=== PATIENT | male | born 1970 | race Caucasian/White ===

== ENCOUNTER → 2017-07-07 | Day surgery (SDC) | payer OTHER ==
[~2017-07-07] VITALS: Ht 180.3 cm; Wt 151.8 kg
[~2017-07-07] MED LIST: ACT/30 PO; ATEN50TA8 PO; CITA40TA4 PO; DULO60CA44 PO; FURO80TA63 PO; GABA800T PO; HYZ/50125 PO; LANS30CA12 PO; LIDOCAINE HCL 2% 2 ML VIAL (20MG/ML) ONE; MELATAB2 PO; MELO7.5T5 PO; MIDAZOLAM HCL 1 MG/ML 2ML VIAL ONE; NAPR-1169 PO; NYSTCRE11 TOP; OXGN; PREG200C PO; PROPOFOL IV EMULSION 10 MG/ML 20 ML VIAL IV ONE; RXC5 PO; SODIUM CHLORIDE 0.9% 500ML 500 ML IV ONE; TIZA4CAP PO; TRAM-10 PO; ZOLP10TA PO; ZOLP1TAB PO; potassium OTC PO
[2017-07-07 11:58] VITALS: Ht 180.3 cm; Wt 151.8 kg
--- NOTE | 2017-07-07 12:35 | Endo History and Physical ---
History & Physical Date of Service: Jul 07, 2017. Chief Complaint: RECTAL BLEEDING, FAMILY HISTORY OF COLON CA Referring Physician: DR GARCIA History of Present Illness Rectal bleeding, famiily history Past Medical History Diabetes, Hypertension Past Surgical History Hx Cardiac Surgery: No Hx Internal Defibrillator: No Hx Pacemaker: No Hx Abdominal Surgery: Yes (CHOLY) Hx of Implantable Prosthesis: No Hx Post-Op Nausea and Vomiting: No Hx Cancer Surgery: No Hx Thoracic Surgery: No Hx Orthopedic: Yes (RIGHT KNEE) Hx Urinary Tract Surgery: No Family History None Social History Smoking Status: Current Every Day Smoker Hx Substance Use: No Hx Alcohol Use: Yes (SOCIALY) Allergies Coded Allergies: Erythromycin (Verified Allergy, Severe, anaphylaxis, 07/07/17) Current Medications Reported Home Medications Medications Dose Route/Sig Max Daily Dose Days Date Category Actos (Pioglitazone Hcl) 30 Mg Tab 30 Mg PO DAILY 06/28/17 Reported Prevacid (Lansoprazole) 30 Mg Capcr 30 Mg PO DAILY 05/17/17 Reported Mobic (Meloxicam) 7.5 Mg Tab 15 Mg PO DAILY 05/17/17 Reported Neurontin (Gabapentin) 800 Mg Tab 800 Mg PO TID 05/17/17 Reported Zanaflex (Tizanidine HCl) 4 Mg Cap 8 Mg PO HS 11/11/16 Reported [potassium OTC] 1 Tab PO PRN 07/02/16 Reported Naprosyn (Naproxen) 500 Mg Tab 500 Mg PO BID 06/17/16 Reported Citalopram Hydrobromide (Citalopram) 40 Mg Tab 1 Tab PO QPM 90 06/17/16 Reported Tenormin (Atenolol) 50 Mg Tab 100 Mg PO QPM 06/17/16 Reported Ambien Er (Zolpidem Tartrate) 12.5 Mg Tab 12.5 Mg PO HS 06/17/16 Reported Hyzaar 12.5MG/50MG (HCTZ/Losartan Potassium) 1 Ea Tab 1 Tab PO QPM 11/22/15 Reported Lasix (Furosemide) 80 Mg Tab 80 Mg PO QPM 11/22/15 Reported Cymbalta (Duloxetine Hcl) 60 Mg Cap 90 Mg PO QAM 11/22/15 Reported Ultram (Tramadol HCl) 50 Mg Tab 100 Mg PO BID 01/08/15 Reported Vital Signs Weight (Kilograms): 151.81 Height (Feet): 5 Height (Inches): 11 Date Time Temp Pulse Resp B/P (MAP) Pulse Ox O2 Delivery O2 Flow Rate FiO2 07/07/17 12:13 36.9 67 20 137/71 (93) 96 Room Air Physical Exam General Appearance: WD/WN, no apparent distress, + obese Respiratory/Chest: Auscultation: breath sounds normal, no wheezing Cardiovascular: Heart Auscultation: RRR, no murmurs Abdomen: Inspection & Palpation: soft, no tenderness, guarding & rebound Assessment and Plan Colonoscopy today.
--- NOTE | 2017-07-07 13:25 | Anesthesiology Progress Note ---
Anesthesia Post Op Note Date & Time Jul 07, 2017 at 13:25 Vital Signs Pain Intensity: 0 Vital Signs Past 12 Hours Date Time Temp Pulse Resp B/P (MAP) Pulse Ox O2 Delivery O2 Flow Rate FiO2 07/07/17 12:13 36.9 67 20 137/71 (93) 96 Room Air Notes Mental Status: alert / awake / arousable, participated in evaluation Pt Amnestic to Procedure: Yes Nausea / Vomiting: adequately controlled Pain: adequately controlled Airway Patency, RR, SpO2: stable & adequate BP & HR: stable & adequate Hydration State: stable & adequate Anesthetic Complications: no major complications apparent
--- NOTE | 2017-07-07 13:27 | Discharge Instructions ---
Endoscopy Patient Instructions Date / Procedure(s) Performed Jul 07, 2017. Colonoscopy Allergy Information Coded Allergies: Erythromycin (Verified Allergy, Severe, anaphylaxis, 07/07/17) Discharge Date / Findings Jul 07, 2017. Colon polyp removed. Medication Instructions Stopped Medication(s): MOBIC AND NAPROXEN STOPPED 07/07/17 Restart Stopped Medication(s): Resume all medications today. Use Wet Ones or other wet wipes instead of toilet paper. Take Citrucel daily. Provider Instructions Activity Restrictions - No exercising or heavy lifting for 24 hours. - Do not drink alcohol the day of the procedure. - Do not drive a car or operate machinery until the day after the procedure. - Do not make any important decisions or sign important papers in 24 hours after the procedure. Following Day: - Return to full activity which may include returning to work/school. Diet Start your diet with liquids and light foods (jello, soup, juice, toast). Then eat your usual diet if not nauseated. Treatment For Common After Affects For mild abdominal pain, bloating, or excessive gas: - Rest - Eat lightly - Lie on right side Follow-Up Information Follow-up with DR GARCIA as scheduled Anesthesia Information What You Should Know You have had a procedure that required some medicine to reduce anxiety and discomfort. This treatment is called moderate sedation. After receiving the treatment, you may be sleepy, but you will be able to breathe on your own. The effects of the treatment may last for several hours. Follow these instructions along with Activity/Diet recommendations noted above: * Do NOT do anything where dizziness or clumsiness would be dangerous. * Rest quietly at home today, then you can be up and about tomorrow. * Have a responsible person stay with you the rest of today. * You may have had an I.V. today. If so, you may take the dressing off later today. Recommendations Call your doctor if: * Trouble breathing * Continuous vomiting for more than 24 hours * Temperature above 101 degrees * Severe abdominal pain or bloating * Pain not relieved by pain medicine ordered * There is increased drainage or redness from any incision * A large amount of rectal bleeding greater than 2-3 tablespoons. (If you had a polyp/s removed or have hemorrhoids, a small amount of blood - from the rectum is to be expected.) * You have any unanswered questions or concerns. IN THE EVENT OF A SERIOUS EMERGENCY, GO TO THE NEAREST EMERGENCY ROOM Your discharge instructions were prepared by provider Bogdan Arroyo. Patient Instructions Signature Page Lenard Hodge Patient (or Guardian) Signature/Date: I have read and understand the instructions given to me by my caregivers. Caregiver/RN/Doctor Signature/Date: The above-named patient and/or guardian has received patient instructions on this date. + Original Patient Signature Page (only) stays with chart. Please make copy for patient.
[2017-07-07 13:47] VITALS: BP 142/90; PULSE 72; O2SAT 98
--- NOTE | 2017-07-08 00:15 | GI REPORT ---
Procedure Date: 07/07/2017 12:47 PM Procedure: Colonoscopy Indications: Rectal bleeding, Family history of colon cancer in multiple second-degree relatives Medicines: Propofol per Anesthesia Complications: No immediate complications. Estimated blood loss: None. Estimated Blood Loss: Estimated blood loss: none. Procedure: Pre-Anesthesia Assessment: - Prior to the procedure, a History and Physical was performed, and patient medications, allergies and sensitivities were reviewed. The patient's tolerance of previous anesthesia was reviewed. - ASA Grade Assessment: II - A patient with mild systemic disease. After I obtained informed consent, the scope was passed under direct vision. Throughout the procedure, the patient's blood pressure, pulse, and oxygen saturations were monitored continuously. The scope was introduced through the anus and advanced to the terminal ileum, with identification of the appendiceal orifice and IC valve. The colonoscopy was performed with ease. The patient tolerated the procedure well. The quality of the bowel preparation was excellent. The bowel preparation used was split dose MIralax. Findings: A 5 mm polyp was found in the sigmoid colon. The polyp was sessile. The polyp was removed with a cold snare. Resection and retrieval were complete. Verification of patient identification for the specimen was done by the physician and nurse using the patient's name, date and medical record number. Impression: - One 5 mm polyp in the sigmoid colon, removed with a cold snare. Resected and retrieved. - The colon was otherwise normal to the terminal ileum with retroflexed views of the colon and terminal ileum. Recommendation: - Repeat colonoscopy in 5 years for surveillance based on pathology results. - Discharge patient to home (with escort). Bogdan Arroyo M.D. Bogdan Arroyo MD 07/07/2017 1:25:29 PM This report has been signed electronically. Note Initiated On: 07/07/2017 12:47 PM I attest to the content of the Intraoperative Record and orders documented therein, exceptions below
== END | disposition home or self-care (01) ==
LOC: C.GI 11:45
PROVIDERS: ATTEND Internal Medicine Gastroenterology
DX: K62.5 Hemorrhage of anus and rectum (principal); D12.5 Benign neoplasm of sigmoid colon; Z80.0 Family history of malignant neoplasm of digestive organs; E11.9 Type 2 diabetes mellitus without complications; I10 Essential (primary) hypertension; F17.200 Nicotine dependence, unspecified, uncomplicated

== ENCOUNTER 2017-08-11 05:32 | Inpatient (IN) | payer OTHER ==
[2017-07-27 14:16] VITALS: BMI 48.0
--- NOTE | 2017-07-27 14:52 | PAT Medication Instructions ---
"Service Date Jul 27, 2017. Current Home Medication List Atenolol (Tenormin), 100 MG PO QAM Citalopram (Citalopram Hydrobromide), 1 TAB PO QPM Duloxetine Hcl (Cymbalta), 90 MG PO QAM Furosemide (Lasix), 80 MG PO QPM Hctz/Losartan (Hyzaar 12.5MG/50MG), 1 TAB PO QPM Home O2 Therapy (Oxygen), 1 LITER NA HS Lansoprazole (Prevacid), 30 MG PO QAM Melatonin (Melatonin Maximum Strengt), 10 MG PO HS Meloxicam (Mobic), 15 MG PO QPM Naproxen (Naprosyn), 500 MG PO BID Nystatin/Triamcinolone (Mycogen || ), 1 DOSE TOP HS Pioglitazone Hcl (Actos), 30 MG PO DAILY Pregabalin (Lyrica), 225 MG PO BID Tizanidine (Zanaflex), 4 MG PO AM/HS Tramadol (Ultram), 100 MG PO BID Zolpidem Tartrate (Ambien), 10 MG PO HS Medication Instructions For Your Scheduled Surgery - Check with surgeon for instructions: Meloxicam (Mobic), 15 MG PO QPM Naproxen (Naprosyn), 500 MG PO BID - Hold the following medications 24 hours prior to surgery: Nystatin/Triamcinolone (Mycogen || ), 1 DOSE TOP HS - Hold the following medications the morning of surgery: Tizanidine (Zanaflex), 4 MG PO AM/HS Pioglitazone Hcl (Actos), 30 MG PO DAILY - Take the following medications the morning of surgery with a sip of water: Tramadol (Ultram), 100 MG PO BID (okay to take up to 4 hours prior to surgery if needed) Pregabalin (Lyrica), 225 MG PO BID Lansoprazole (Prevacid), 30 MG PO QAM Duloxetine Hcl (Cymbalta), 90 MG PO QAM Atenolol (Tenormin), 100 MG PO QAM - Hold the following medications as scheduled the night before surgery: Hctz/Losartan (Hyzaar 12.5MG/50MG), 1 TAB PO QPM - Take the following medications as scheduled the night before surgery: Tramadol (Ultram), 100 MG PO BID Zolpidem Tartrate (Ambien), 10 MG PO HS Tizanidine (Zanaflex), 4 MG PO AM/HS Pregabalin (Lyrica), 225 MG PO BID Melatonin (Melatonin Maximum Strengt), 10 MG PO HS Home O2 Therapy (Oxygen), 1 LITER NA HS Furosemide (Lasix), 80 MG PO QPM Citalopram (Citalopram Hydrobromide), 1 TAB PO QPM If you have any questions please call us at [phone] or [phone] or [phone]"
--- NOTE | 2017-07-27 15:15 | DIAGNOSTIC IMAGING REPORT ---
CHEST 2 VIEWS ROUTINE CLINICAL HISTORY: pat preoperative evaluation COMPARISON STUDY: 01/11/2013 FINDINGS: The bones soft tissues and hemidiaphragms are normal. The cardiomediastinal silhouette is normal. The lungs are clear. The pulmonary vasculature is normal. IMPRESSION: Negative chest. The above report was generated using voice recognition software. It may contain grammatical, syntax or spelling errors. Electronically signed by: Kristian Velazquez M.D. 07/27/2017 3:13 PM Dictated Date/Time: 07/27/2017 3:13 PM
[2017-07-27 15:42] LABS: URINE APPEARANCE CLOUDY (CLEAR); URINE BILIRUBIN NEG (NEG); URINE COLOR DK YELLOW; URINE EPITHELIAL CELL AUTO >30 /lpf (0-5); URINE NITRITE NEG (NEG); URINE SPECIFIC GRAVITY 1.025 (1.000-1.030); UROBILINOGEN NEG (NEG); ZZUR CULT IF INDIC CLEAN CATCH YES
[2017-07-27 15:43] LABS: MANUAL MICROSCOPIC REQUIRED? NO; REVIEW REQ? YES
[2017-08-11] VITALS (9 sets, daily range): BP systolic 130–146; BP diastolic 67–82; PULSE 62–77; TEMP 36.7–36.9; O2SAT 93–99; Ht 180.3 cm; Wt 157.0 kg
[~2017-08-11] VITALS: Ht 180.3 cm; Wt 157.0 kg
[~2017-08-11 05:32] MED LIST changes: -GABA800T PO; -LIDOCAINE HCL 2% 2 ML VIAL (20MG/ML) ONE; -MIDAZOLAM HCL 1 MG/ML 2ML VIAL ONE; -PROPOFOL IV EMULSION 10 MG/ML 20 ML VIAL IV ONE; -RXC5 PO; -SODIUM CHLORIDE 0.9% 500ML 500 ML IV ONE; -ZOLP1TAB PO; -potassium OTC PO
[2017-08-11] MEDS ORDERED: LACTATED RINGER'S 1000ML 1,000 ML IV SCH (06:00)
[2017-08-11] MEDS ORDERED: CEFAZOLIN 3000 MG/65 ML D5W IV SCH (06:00)
[2017-08-11] MEDS ORDERED: FENTANYL CITRATE INJ 50 MCG/1 ML 2 ML VIAL ONE ×4 (06:52→09:08)
[2017-08-11] MEDS ORDERED: MIDAZOLAM HCL 1 MG/ML 2ML VIAL ONE (06:52)
[2017-08-11] MEDS ORDERED: BUPIVACAINE/EPINEPHRINE 0.5% MPF 1:200,000 30 ML VIAL ONE (07:11)
[2017-08-11] MEDS ORDERED: BACITRACIN 50000 UNIT VIAL ONE (07:11)
--- NOTE | 2017-08-11 07:24 | History & Physical Bridge Note ---
H&P Re-Evaluation Bridge Note: I have examined the patient, reviewed the History & Physical and in the interval since the performance of the History & Physical I have noted the following changes of clinical significance: No changes noted
--- NOTE | 2017-08-11 07:25 | History and Physical ---
"History & Physical Date Aug 11, 2017. Chief Complaint Chronic back and leg pain History of Present Illness The patient is a 46 year old male with complaints of chronic back and leg pain Past Medical/Surgical History Medical Problems: (1) Lynn's Esophagus (2) Diaphragmatic Hernia (3) Esophageal Reflux (4) Esophagitis Nos (5) Hypertension Nos (6) Tobacco Use Disorder Surgical Problems: (1) History of cholecystectomy (2) Hx of left knee surgery Additional History Hepatic Disease: No Endocrine Disorder: No Kidney Disease: No Hypertension: Yes Heart Disease: No Bleeding Tendencies: No Infectious Diseases: No Allergies Coded Allergies: Erythromycin (Verified Allergy, Severe, anaphylaxis, 08/11/17) Gabapentin (Verified Allergy, Unknown, MUSCLE/SHOULDER ACHES, 08/11/17) Home Medications Scheduled Atenolol (Tenormin), 100 MG PO QAM Citalopram (Citalopram Hydrobromide), 1 TAB PO QPM Duloxetine Hcl (Cymbalta), 90 MG PO QAM Furosemide (Lasix), 80 MG PO QPM Hctz/Losartan (Hyzaar 12.5MG/50MG), 1 TAB PO QPM Home O2 Therapy (Oxygen), 1 LITER NA HS Lansoprazole (Prevacid), 30 MG PO QAM Melatonin (Melatonin Maximum Strengt), 10 MG PO HS Meloxicam (Mobic), 15 MG PO QPM Naproxen (Naprosyn), 500 MG PO BID Nystatin/Triamcinolone (Mycogen || ), 1 DOSE TOP HS Pioglitazone Hcl (Actos), 30 MG PO DAILY Pregabalin (Lyrica), 225 MG PO BID Tizanidine (Zanaflex), 4 MG PO AM/HS Tramadol (Ultram), 100 MG PO BID Zolpidem Tartrate (Ambien), 10 MG PO HS Physical Examination Skin: warm/dry, no rash Eyes: normal inspection, EOMI, sclerae normal ENT: normal ENT inspection, pharynx normal Head: normocephalic, atraumatic Neck: supple, no adenopathy, trachea midline Respiratory/Chest: lungs clear, normal breath sounds, no respiratory distress Cardiovascular: regular rate, rhythm, no edema, no murmur Abdomen / GI: normal bowel sounds, non tender Back: normal inspection Extremities: normal inspection, normal range of motion Neurologic/Psych: no motor/sensory deficits, alert, normal reflexes, oriented x 3 Diagnosis Chronic back and leg pain Plan of Treatment Spinal cord stimulator trial"
[2017-08-11] MEDS ORDERED: ONDANSETRON INJ 2 MG/ML 2 ML VIAL IV PRN (07:45)
[2017-08-11] MEDS ORDERED: FENTANYL CITRATE INJ 50 MCG/1 ML 2 ML VIAL IV PRN (07:45)
[2017-08-11] MEDS ORDERED: EpHEDrine SULFATE INJ 50 MG/ML AMP IV PRN (07:45)
[2017-08-11] MEDS ORDERED: ATROPINE SULFATE 0.1 MG/ML 5ML SYR IV PRN (07:45)
[2017-08-11] MEDS ORDERED: HYDROmorphone INJ 2 MG/ML SYR/VIAL ONE ×2 (08:07→08:41)
[2017-08-11] MEDS ORDERED: DEXAMETHASONE SOD INJ 4 MG/ML VIAL ONE (08:13)
[2017-08-11] MEDS ORDERED: GLYCOPYRROLATE INJ 0.2 MG/ML VIAL ONE (08:13)
[2017-08-11] MEDS ORDERED: KETOROLAC TROMETHAMINE 30 MG/ML VIAL ONE (08:13)
[2017-08-11] MEDS ORDERED: SUCCINYLCHOLINE CHLORIDE 20 MG/ML 10 ML VIAL IV ONE (08:13)
[2017-08-11] MEDS ORDERED: LIDOCAINE HCL 2% 2 ML VIAL (20MG/ML) ONE (08:13)
[2017-08-11] MEDS ORDERED: NEOSTIGMINE METHYLSULFATE 1 MG/ML 10ML VIAL ONE (08:13)
[2017-08-11] MEDS ORDERED: ONDANSETRON INJ 2 MG/ML 2 ML VIAL ONE ×2 (08:13)
[2017-08-11] MEDS ORDERED: PROPOFOL IV EMULSION 10 MG/ML 20 ML VIAL IV ONE (08:13)
[2017-08-11] MEDS ORDERED: ROCURONIUM BROMIDE 10 MG/ML 5 ML VIAL IV ONE (08:13)
[2017-08-11] MEDS ORDERED: FLOSEAL HEMOSTATIC MATRIX 10ML TOP ONE (08:33)
[2017-08-11] MEDS ORDERED: MAGNESIUM HYDROXIDE SUSP 30 ML UDC PO PRN (08:45)
[2017-08-11] MEDS ORDERED: ACETAMINOPHEN 500 MG TAB PO PRN (08:45)
[2017-08-11] MEDS ORDERED: ACETAMINOPHEN 325 MG TAB PO PRN (08:45)
[2017-08-11] MEDS ORDERED: LORAZEPAM INJ 1 MG in SYRINGE 0 ML IV PRN (08:45)
[2017-08-11] MEDS ORDERED: DO NOT ADMINISTER PNEUMOCOCCAL VACCINE PRN ×2 (08:45)
[2017-08-11] MEDS ORDERED: DO NOT ADMINISTER FLU VACCINE PRN ×3 (08:45)
--- NOTE | 2017-08-11 08:50 | [facility] Operative Report ---
Operative Report Operative Date Aug 11, 2017. Pre-Operative Diagnosis chronic back and leg pain Post-Operative Diagnosis chronic back and leg pain Procedure(s) Performed #1 T10 laminotomy. #2 placement of 16-lead dorsal column stimulator paddle. #3 attachment of external leads. Surgeon Dr. Susana Saleem [employer] Supervisor Surgeon(s) Holden Eddy PA-C Estimated Blood Loss 25mL Findings None Specimens none per surgeon Description of Procedure Patient was met with preoperatively case discussed all questions are dressed. After informed consent patient was taken to the operative suite and underwent intubation placed in a prone position the Jayden table on top Malachi frame. All bony prominences were well-padded eyes inspected to ensure no external pressure. The thoracal lumbar spine was prepped and draped in normal sterile fashion. Sharp dissection with the assistance of Bovie cautery was performed onto an exposing the T10 11 interlaminar space. At T10 laminotomy was then performed and was able to place a 16-lead dorsal column stimulator paddle into the canal expected pending from T9 to T10. We verified its placement with fluoroscopy. I then attached external leads and with the use of a trocar had them run to the left flank. Incision was in copious irrigated and closed over the wires. We did test to ensure was functioning appropriately. Sterile dressing was placed. The patient was then awakened taken to PACU stable condition. Please note Rachel Thomason was present at the entire procedure involved in patient positioning complex portions of the surgery and final skin closure. I attest to the content of the Intraoperative Record and any orders documented therein. Any exceptions are noted below.
--- NOTE | 2017-08-11 08:59 | DIAGNOSTIC IMAGING REPORT ---
Thoracic SPINE, INTRAOPERATIVE FLUOROSCOPY HISTORY: Spinal cord stimulator placement. FLUOROSCOPY TIME: 10 seconds. FINDINGS: Intraoperative fluoroscopy was provided for the thoracic. A single image of the lower thoracic spine was submitted. There is a spinal stimulator lead overlying the lower thoracic spine. Exact levels are difficult to identify on this single spot image. IMPRESSION: Fluoroscopy provided for a spinal cord stimulator placement. Electronically signed by: Jose Camp M.D. 08/11/2017 8:58 AM Dictated Date/Time: 08/11/2017 8:57 AM
--- NOTE | 2017-08-11 09:43 | Anesthesiology Progress Note ---
Anesthesia Post Op Note Date & Time Aug 11, 2017 at 09:43 Vital Signs Pain Intensity: 2 Vital Signs Past 12 Hours Date Time Temp Pulse Resp B/P (MAP) Pulse Ox O2 Delivery O2 Flow Rate FiO2 08/11/17 09:35 36.9 67 20 150/75 95 Nasal Cannula 4 08/11/17 09:25 66 13 158/75 96 Nasal Cannula 4 08/11/17 09:15 66 23 154/79 99 Oxymask 10 08/11/17 09:05 68 18 141/65 98 Oxymask 10 08/11/17 08:55 36.4 71 16 157/70 97 Oxymask 10 08/11/17 05:50 36.7 62 20 135/81 (99) 98 Room Air Notes Mental Status: alert / awake / arousable, participated in evaluation Pt Amnestic to Procedure: Yes Nausea / Vomiting: adequately controlled Pain: adequately controlled Airway Patency, RR, SpO2: stable & adequate BP & HR: stable & adequate Hydration State: stable & adequate Anesthetic Complications: no major complications apparent
[2017-08-11] MEDS ORDERED: RXC5 PO (10:19)
--- NOTE | 2017-08-11 10:20 | Discharge Instructions ---
Discharge Instructions Date of Service Aug 11, 2017. Admission Reason for Admission: Lumbar Post-Laminectomy Syndrome Discharge Discharge Diagnosis / Problem: chronic back pain Discharge Goals Goal(s): Improve function Activity Recommendations Activity Limitations: per Instructions/Follow-up section . Instructions / Follow-Up Instructions / Follow-Up ACTIVITY RECOMMENDATIONS: SELF CARE INSTRUCTIONS AFTER A LAMINECTOMY 1. No prolonged sitting (less than 30 minutes for the first 3 weeks after surgery). 2. No bending, lifting more than 5 pounds, or twisting (roll like a log when turning in bed). 3. You may shower 3 days after surgery if no drainage from wound. Thoroughly dry wound. Do not soak in the tub. 4. Please walk as much as you can for exercise. Gradually increase the distance that you walk as your endurance increases. 5. You may drive in 7-10 days if you are comfortable and no longer requiring pain medications. SPECIAL CARE INSTRUCTIONS: VERY IMPORTANT TO READ AND REVIEW A. Your surgical incision has been closed with a cosmetic suture under the skin that will dissolve in about 6 weeks. In 14 days, you can use a pair of clean scissors and cut the suture that is left outside of the skin at the ends of your incision. B. Complications are uncommon, but please contact us if you have any signs or symptoms of: 1. wound infection (fever higher than 102.5 degrees F, redness, separation of wound, drainage, or increasing pain from the incision) 2. blood clots in legs (pain, swelling, redness and warmth in legs) 3. urinary tract infection (fever higher than 102.5 degrees, burning upon urination or increased frequency of urination) 4. nerve problems (inability to walk on your toes or heels, numbness, loss of bowel or bladder control) 5. any other symptoms that concern you. C. Please call the office at if you have any concerns or questions about your operation or recovery. MANAGING PAIN AFTER SPINAL SURGERY 1. Narcotic medication is intended for short-term use and will be provided for surgical pain. Surgical pain usually lasts for a period of 4-6 weeks. Narcotic medication includes Percocet, Vicodin, Darvocet, Tylenol #3 or Lortab. 2. Longer-term pain is more appropriately treated with non-narcotic medication such as Tylenol ES. 3. Muscle spasm is not appropriately treated with narcotics. Muscle relaxers such as Soma, Flexeril or Skelaxin can be used along with Tylenol ES. 4. Remember that we all live with some "aches and pains". This is not unusual or uncommon after an injury or as we get older. 5. We will provide appropriate medication within the normal guidelines of their prescribed use. We will also be very cautious and aware of potential abuse and extended duration of patients' medication needs. 6. Please allow 2-3 days to process refills. Prescriptions will not be mailed but must be picked up at the office. FOLLOW UP VISIT: Keep your scheduled follow-up appointment. Any questions, please call the office at . Current Hospital Diet Patient's current hospital diet: Regular Diet Discharge Diet Recommended Diet: Regular Diet Procedures Procedures Performed: #1 T10 laminotomy. #2 placement of 16-lead dorsal column stimulator paddle. #3 attachment of external leads. Pending Studies Studies pending at discharge: no Medical Emergencies . Who to Call and When: Medical Emergencies: If at any time you feel your situation is an emergency, please call 911 immediately. . Non-Emergent Contact Non-Emergency issues call your: Primary Care Provider . "Provider Documentation" section prepared by Ar Saleem. . VTE Core Measure Inpt VTE Proph given/why not?: Michael Rodriguez, SCD's
[2017-08-11] MEDS: SODIUM CHLORIDE 0.9% 1000ML 1,000 ML IV SCH ×2 (11:18→23:26)
[2017-08-11] MEDS: DOCUSATE SODIUM 100 MG CAP PO SCH ×2 (11:22→20:35)
[2017-08-11] MEDS: DULOXETINE (CYMBALTA) 30 MG CAP PO SCH (11:22)
[2017-08-11] MEDS: LANSOPRAZOLE SOLUTAB 30 MG PO SCH (11:22)
[2017-08-11] MEDS: PREGABALIN 75 MG CAP PO SCH ×2 (11:23→20:36)
[2017-08-11] MEDS: KETOROLAC TROMETHAMINE 30 MG/ML VIAL IV. SCH ×3 (11:23→23:28)
[2017-08-11] MEDS: TRAMADOL HCL 50 MG TAB PO SCH ×2 (11:29→20:36)
[2017-08-11] MEDS: CEFAZOLIN IV 3,000 MG in DEXTROSE 5% 50ML 50 ML IV SCH ×2 (16:33→23:28)
[2017-08-11] MEDS: OXYCODONE HCL IR 5 MG TAB (IMMEDIATE RELEASE) PO PRN ×2 (18:53→22:34)
[2017-08-11] MEDS: LOSARTAN/HCTZ 50-12.5 EA TAB PO SCH (20:35)
[2017-08-11] MEDS: CITALOPRAM 40 MG TAB PO SCH (20:35)
[2017-08-11] MEDS: FUROSEMIDE 80 MG TAB PO SCH (20:35)
[2017-08-11] MEDS: ZOLPIDEM TARTRATE 10 MG TAB PO SCH (22:33)
[2017-08-11] MEDS: LORAZEPAM 1 MG TAB PO PRN (23:27)
[2017-08-12] VITALS (7 sets, daily range): BP systolic 132–180; BP diastolic 70–101; PULSE 67–76; TEMP 36.5–37.3; O2SAT 93–98
[2017-08-12] MEDS: OXYCODONE HCL IR 5 MG TAB (IMMEDIATE RELEASE) PO PRN ×2 (05:59→19:06)
[2017-08-12] MEDS: LORAZEPAM 1 MG TAB PO PRN ×2 (07:30→19:41)
[2017-08-12] MEDS: CEFAZOLIN IV 3,000 MG in DEXTROSE 5% 50ML 50 ML IV SCH (07:41)
[2017-08-12] MEDS: TRAMADOL HCL 50 MG TAB PO SCH ×2 (09:19→20:48)
[2017-08-12] MEDS: PREGABALIN 75 MG CAP PO SCH ×2 (09:19→20:48)
[2017-08-12] MEDS: LANSOPRAZOLE SOLUTAB 30 MG PO SCH (09:20)
[2017-08-12] MEDS: DOCUSATE SODIUM 100 MG CAP PO SCH ×2 (09:21→20:48)
[2017-08-12] MEDS: DULOXETINE (CYMBALTA) 30 MG CAP PO SCH (09:21)
[2017-08-12] MEDS: ONDANSETRON INJ 2 MG/ML 2 ML VIAL IV PRN ×2 (09:58→20:46)
[2017-08-12] MEDS: HYDROmorphone INJ 1 MG/ML SYR IV PRN ×2 (09:58→19:41)
--- NOTE | 2017-08-12 12:14 | Anesthesiology Progress Note ---
Anesthesia Post Op Note Date & Time Aug 12, 2017 at 12:13 Vital Signs Pain Intensity: 4.0 Vital Signs Past 12 Hours Date Time Temp Pulse Resp B/P (MAP) Pulse Ox O2 Delivery O2 Flow Rate FiO2 08/12/17 11:27 37.3 72 17 148/74 (98) 93 CPAP 08/12/17 09:56 75 173/80 (111) 08/12/17 09:52 76 180/101 (127) 08/12/17 07:20 Room Air 08/12/17 07:07 36.5 74 18 164/84 (110) 95 Room Air 08/12/17 03:00 36.8 67 17 132/70 (90) 98 CPAP Notes Mental Status: alert / awake / arousable, participated in evaluation Pt Amnestic to Procedure: Yes Nausea / Vomiting: adequately controlled Pain: adequately controlled, improving with treatment Airway Patency, RR, SpO2: stable & adequate BP & HR: stable & adequate Hydration State: stable & adequate Anesthetic Complications: no major complications apparent
--- NOTE | 2017-08-12 13:50 | Progress Note ---
Progress Note Date of Service Aug 12, 2017. Progress Note Patient's of back and leg symptoms are improved with the stimulator. He is tolerating as well as ambulate halls without difficulty. Assessment status post dorsal column stimulator trial. Plan at this time with his current results would like to proceed with formal implantation. He will be made nothing by mouth after midnight. We will to place is battery tomorrow discharge home.
[2017-08-12] MEDS ORDERED: BISACODYL 5 MG TABEC ONE (16:02)
[2017-08-12] MEDS ORDERED: BISACODYL 10 MG SUPP ONE (16:02)
[2017-08-12] MEDS ORDERED: NURSING VERBAL MED ORDER ONE (16:30)
[2017-08-12] MEDS ORDERED: SOD PHOSPHATE/SOD BIPHOSPHATE ENEMA 132 ML BTL PR PRN (16:30)
[2017-08-12] MEDS ORDERED: BISACODYL 5 MG TABEC PO PRN (16:30)
[2017-08-12] MEDS ORDERED: BISACODYL 10 MG SUPP PR PRN (16:30)
[2017-08-12] MEDS: FUROSEMIDE 80 MG TAB PO SCH (20:48)
[2017-08-12] MEDS: CITALOPRAM 40 MG TAB PO SCH (20:48)
[2017-08-12] MEDS: ZOLPIDEM TARTRATE 10 MG TAB PO SCH (20:48)
[2017-08-12] MEDS: LOSARTAN/HCTZ 50-12.5 EA TAB PO SCH (20:48)
[2017-08-12] MEDS: HYDROmorphone INJ 2 MG/ML SYR/VIAL IV PRN (22:42)
[2017-08-13] MEDS: HYDROmorphone INJ 2 MG/ML SYR/VIAL IV PRN (05:18)
[2017-08-13] MEDS ORDERED: BISACODYL 5 MG TABEC PO PRN (06:00)
[2017-08-13] MEDS ORDERED: BISACODYL 10 MG SUPP PR PRN (06:00)
[2017-08-13 06:41] VITALS: BP 188/78; PULSE 86; TEMP 36.9; O2SAT 95
[2017-08-13] MEDS ORDERED: BUPIVACAINE/EPINEPHRINE 0.5% MPF 1:200,000 30 ML VIAL ONE (06:53)
[2017-08-13] MEDS ORDERED: BACITRACIN 50000 UNIT VIAL ONE (06:54)
[2017-08-13] MEDS ORDERED: MIDAZOLAM HCL 1 MG/ML 2ML VIAL ONE (06:56)
[2017-08-13] MEDS ORDERED: FENTANYL CITRATE INJ 50 MCG/1 ML 2 ML VIAL ONE ×2 (06:56→08:08)
[2017-08-13] MEDS ORDERED: CEFAZOLIN IV 3,000 MG/65 ML D5W IV ONE (07:41)
[2017-08-13] MEDS ORDERED: HYDROmorphone INJ 2 MG/ML SYR/VIAL ONE ×2 (08:08→08:50)
[2017-08-13] MEDS ORDERED: ONDANSETRON INJ 2 MG/ML 2 ML VIAL ONE ×2 (08:14→08:51)
[2017-08-13] MEDS ORDERED: DEXAMETHASONE SOD INJ 4 MG/ML VIAL ONE (08:14)
[2017-08-13] MEDS ORDERED: LIDOCAINE HCL 2% 2 ML VIAL (20MG/ML) ONE (08:14)
[2017-08-13] MEDS ORDERED: PROPOFOL IV EMULSION 10 MG/ML 20 ML VIAL IV ONE (08:14)
[2017-08-13] MEDS ORDERED: ROCURONIUM BROMIDE 10 MG/ML 5 ML VIAL IV ONE (08:14)
[2017-08-13] MEDS ORDERED: ATROPINE SULFATE 0.1 MG/ML 5ML SYR IV PRN (08:15)
[2017-08-13] MEDS ORDERED: FENTANYL CITRATE INJ 50 MCG/1 ML 2 ML VIAL IV PRN (08:15)
[2017-08-13] MEDS ORDERED: EpHEDrine SULFATE INJ 50 MG/ML AMP IV PRN (08:15)
[2017-08-13] MEDS ORDERED: HYDROmorphone INJ 1 MG/ML SYR IV PRN (08:15)
[2017-08-13] MEDS ORDERED: PROMETHAZINE HCL INJ 12.5 MG in SODIUM CHLORIDE 0.9% 50ML 50 ML IV PRN (08:15)
[2017-08-13] MEDS ORDERED: ONDANSETRON INJ 2 MG/ML 2 ML VIAL IV PRN (08:15)
--- NOTE | 2017-08-13 08:31 | [facility] Operative Report ---
Operative Report Operative Date Aug 13, 2017. Pre-Operative Diagnosis Back and Leg pain. Post-Operative Diagnosis Back and Leg Pain Procedure(s) Performed #1 removal of temporary external spinal cord stimulator leads. #2 implantation of rechargeable dorsal column stimulator battery with testing 17 cysts. Surgeon [employer] Assembly Worker Surgeon(s) Davin Tena PA-C Estimated Blood Loss 25mL Findings None Specimens None per surgeon Description of Procedure Patient was met with preoperatively case discussed all questions were addressed. After informed consent was taken to the operative suite and underwent intubation placed in a prone position on the Jayden table on top Malachi frame. All bony prominences were well-padded eyes inspected to ensure no external pressure. This point the thoracal lumbar spine was prepped and draped nostril fashion. The previous thoracic incision was reopened and the temporary leads identified. They were detached and removed externally. I then created a small pocket over the right flank large enough to hold the battery. We tunneled from the thoracic incision to the pocket passing the permanent leads to the pocket. They were attached the battery the battery was tested for efficacy in the impedances then placed within the pocket. Incisions were copious irrigated with antibiotic solution and closed with subcutaneous Vicryl and 4 Monocryl for final skin closure. Steri-Strips sterile dressings placed. Patient we can taken to PACU stable condition. Please note Alfie record was present throughout the entire procedure involved in patient positioning complex portions of the surgery and final skin closure. I attest to the content of the Intraoperative Record and any orders documented therein. Any exceptions are noted below.
[2017-08-13] MEDS ORDERED: NEOSTIGMINE METHYLSULFATE 1 MG/ML 10ML VIAL ONE (08:51)
[2017-08-13] MEDS ORDERED: GLYCOPYRROLATE INJ 0.2 MG/ML VIAL ONE (08:51)
[2017-08-13] MEDS ORDERED: KETOROLAC TROMETHAMINE 30 MG/ML VIAL ONE (08:51)
[2017-08-13] MEDS ORDERED: POLYETHYLENE (MIRALAX) 17 GM PACK PO SCH (09:00)
--- NOTE | 2017-08-13 09:39 | Anesthesiology Progress Note ---
Anesthesia Post Op Note Date & Time Aug 13, 2017 at 09:38 Vital Signs Pain Intensity: 0 Vital Signs Past 12 Hours Date Time Temp Pulse Resp B/P (MAP) Pulse Ox O2 Delivery O2 Flow Rate FiO2 08/13/17 09:26 131/86 08/13/17 09:26 131/86 08/13/17 09:25 73 15 97 08/13/17 09:25 73 15 97 08/13/17 09:25 72 15 08/13/17 09:25 72 15 08/13/17 09:23 142/69 08/13/17 09:23 142/69 08/13/17 09:20 77 17 99 08/13/17 09:20 76 17 08/13/17 09:20 76 17 08/13/17 09:20 77 17 99 08/13/17 09:16 131/64 08/13/17 09:16 131/64 08/13/17 09:15 73 21 08/13/17 09:15 73 21 100 08/13/17 09:15 73 21 08/13/17 09:15 73 21 100 08/13/17 09:11 118/66 08/13/17 09:11 118/66 08/13/17 09:10 75 17 08/13/17 09:10 75 17 08/13/17 09:10 76 17 100 08/13/17 09:10 36.5 78 16 118/66 100 Mask 10 08/13/17 09:10 76 17 100 08/13/17 06:41 36.9 86 18 188/78 (114) 95 Room Air 08/12/17 22:45 36.8 73 16 156/89 (111) 93 Room Air Notes Mental Status: alert / awake / arousable, participated in evaluation Pt Amnestic to Procedure: Yes Nausea / Vomiting: adequately controlled Pain: adequately controlled Airway Patency, RR, SpO2: stable & adequate BP & HR: stable & adequate Hydration State: stable & adequate Anesthetic Complications: no major complications apparent
[2017-08-13 10:05] VITALS: BP 147/71; PULSE 73; TEMP 36.5; O2SAT 91
[2017-08-13 10:23] VITALS: O2SAT 91
[2017-08-13 10:41] VITALS: BP 157/82; PULSE 71; O2SAT 93
[2017-08-13 11:08] VITALS: BP 152/89; PULSE 74; TEMP 36.6; O2SAT 91
[2017-08-13 11:18] VITALS: BP 152/89; PULSE 74; TEMP 36.6; O2SAT 91
--- NOTE | 2017-08-13 12:37 | Discharge Summary ---
Orthopedic Discharge Summary Admission Date/Reason Aug 11, 2017 at 08:46 Lumbar Post-Laminectomy Syndrome. Discharge Date/Disposition Aug 13, 2017 Home Diagnosis Principal Diagnosis: Chronic back and leg pain Admission Physical Exam As per Admitting History & Physical. Hospital Course Patient underwent dorsal calm stimulator placement with trial leads on Wednesday. He tolerated this well noted marked improvement of his symptom complex and socially we elected to undergo permanent implantation on Wednesday. He tolerated procedure well and was socially discharge home. Discharge orders and instructions can be found the chart for further review. Discharge Instructions Please refer to the electronic Patient Visit Report (Discharge Instructions) for additional information.
== END 2017-08-13 11:45 | disposition home or self-care (01) | DRG 520 ==
LOC: C.ACU 05:32 → C.3E 08:46 → EDBEDREQ 09:25 → ENRESERV 09:29 → UNDOADMIN 10:14 → C.3E 10:14
PROVIDERS: ADMIT Orthopaedic Surgery Orthopaedic Surgery of the Spine; ATTEND Orthopaedic Surgery Orthopaedic Surgery of the Spine
PROC: 00HU3MZ Insertion of Neurostimulator Lead into Spinal Canal, Percutaneous Approach (ICD-10-PCS; principal; 2017-08-11 07:45)
PROC: 0JH73MZ Insertion of Stimulator Generator into Back Subcutaneous Tissue and Fascia, Percutaneous Approach (ICD-10-PCS; 2017-08-13)
PROC: 00PV3MZ Removal of Neurostimulator Lead from Spinal Cord, Percutaneous Approach (ICD-10-PCS; 2017-08-13)
PROC: 00HU3MZ Insertion of Neurostimulator Lead into Spinal Canal, Percutaneous Approach (ICD-10-PCS; 2017-08-13)
DX: M96.1 Postlaminectomy syndrome, not elsewhere classified (principal); M54.5 Low back pain; K21.9 Gastro-esophageal reflux disease without esophagitis; I10 Essential (primary) hypertension; Z79.899 Other long term (current) drug therapy

== ENCOUNTER 2025-01-21 15:18 | Inpatient (IN) ==
--- NOTE | 2025-01-21 16:28 | Emergency Department Note ---
Impression & Plan Splenic laceration, Acute upper abdominal pain, Fall from standing ED Provider Note HISTORY OF PRESENT ILLNESS: Patient is a 54-year-old male presenting with left posterior rib pain and left upper quadrant abdominal pain after a fall. Patient reports that 2 days ago he had fallen in an attempt to catch his dog before the dog ran out of the house. He reports he had stepped outside and fell about 3 to 4 feet off of the porch step, striking the left side of his chest and left upper abdomen on the banister. He reports that he immediately felt like he lost the ability to breathe. He states that he was dealing with the pain over the last 48 hours, but earlier today got slightly woozy while walking and the pain increased, prompting him to present to the emergency department. He denies striking his head or loss of consciousness. He is not on any anticoagulation or antiplatelet therapy. He is currently complaining of pain on the left posterior chest, left upper quadrant and epigastric region. He also is complaining of pain in his lower abdomen. Denies any vomiting but does report some nausea today. He reports that he feels like he cannot take a deep breath because it hurts so bad when he does. ROS: as above PHYSICAL EXAM: Constitutional: Patient appears in no acute distress. HENT: Head: Normocephalic and atraumatic. Eyes: EOMI, PERRL Mouth/Throat: Mucous membranes moist. Neck: Trachea midline. Neck supple. Cardiovascular: RRR, No murmurs, rubs or gallops. Intact distal pulses. Pulmonary/Chest: No respiratory distress. Breath sounds clear and equal bilaterally. No wheezes or rales. No anterior chest wall tenderness to palpation. Left lower posterior ribs TTP. No ecchymosis or evidence of flail chest. Abdominal: Abdomen soft, no rebound or guarding. LUQ TTP Musculoskeletal: No edema, tenderness or deformity noted. Skin: Warm and dry. No rash, erythema, pallor or cyanosis Psychiatric: Appropriate mood and affect for situation. Neurological: Alert and keenly responsive. CN II-XII grossly intact, moving all extremities equally and fully. MDM: - Vitals signs showed tachycardia - History obtained via patient. History as above. - Chronic conditions affecting care: obesity; HTN; HLD; DM-2; GERD; - Differential diagnoses include, but are not limited to: Rib fracture; pneumothorax; hemothorax; splenic laceration; liver laceration; contusion - Order placed for continuous cardiac monitoring. At this time, monitor showed rate of 94 bpm with normal sinus rhythm, per my interpretation. - External medical records reviewed. Primary care visit note dated 12/06/2024 was reviewed. Patient was seen in clinic for follow-up for his multiple medical problems. - EKG image interpreted by myself showed normal sinus rhythm. Rate 93 bpm. QT 378. No acute ischemic changes. - Laboratory workup interpreted by myself showed leukocytosis (WBC 14.39); anemia (Hgb 11.6 - baseline around 14); normal PT/INR; stable electrolytes; normal troponin; normal lipase - UA negative for infection - Patient given 4 mg IV morphine on arrival for pain control. His oxygen saturation decreased after opioid administration and he was started on 2 L nasal cannula. - CT chest with IV contrast negative for rib fractures. Noted have a small layering left pleural effusion. No pneumothorax. Noted to have a small pericardial effusion. - CT abdomen/pelvis with IV contrast showed moderate hemoperitoneum and a grade 3 splenic laceration with moderate subcapsular and perisplenic hematoma. - Type and screen ordered - On arrival back to ER from CT scan, patient complaining of significant pain. Given 50 mcg of IV fentanyl. - Discussed case with general surgeon on-call at [facility], Dr. Anaya, at 17:45. He reports that the patient would need transfer to a tertiary care facility for IR embolization of his splenic laceration. - Discussed case with trauma surgeon on-call at [facility], Dr. Louis, at 18:20. Discussed the case with Dr. Louis and he states that "there is not much to do for this patient given that he is over 48 hours into his injury." He reports that normally on a patient who is vitally stable with a stable hemoglobin 2 days post injury with a splenic lack, they would advance the diet and liberalize activity and discharge him on hospital day 1 or 2. Reports that he would except the patient if our facility is uncomfortable with admitting for pain control and for PT/OT assessment. He does recommend getting a repeat hemoglobin and states that if this does drop that we can call [facility] back for his consultation and likely immediate transfer. However, he states that as of now the patient would just need pain control. States that there is no need for emergent IR or surgical intervention. - Patient complaining of significant pain. Do feel that an admission for pain control would be appropriate. I did order repeat hemoglobin to ensure no further drop. - Discussion was had with piano case maker about patient's case and need for admission - Hospitalist, Dr. Suazo, consulted for admission - Patient admitted to [facility] for further evaluation and management. ASSESSMENT AND PLAN: Diagnosis: Splenic laceration; acute upper abdominal pain; fall from standing Plan: Admit Past Med/Surg History Problem List (Updated 01/21/25 @ 18:50 by Rachel Martinez MD) Fall from standing (Acute) Acute upper abdominal pain (Acute) Splenic laceration (Acute) Lumbar spondylosis Chronic back pain Lumbar stenosis Diabetes mellitus, type 2 Fatty liver disease, nonalcoholic GERD (gastroesophageal reflux disease) UNDER CONTROL Asthma hx-NO INHALERS Anxiety Hyperlipidemia (Chronic) Depression (Chronic) Lynn esophagus (Chronic ~11/2009) Diabetic peripheral neuropathy associated with type 2 diabetes mellitus (Chronic) Hypertension History of colon polyps (Chronic ~06/2017) 5 mm sigmoid serrated adenoma [place] (obstructive sleep apnea) (Chronic) Tobacco abuse disorder (Chronic) Alcohol abuse (Chronic) 2 cases of beer per week. Vitamin D deficiency (Chronic) Proteinuria due to type 2 diabetes mellitus Personal history of diabetic foot ulcer Class 3 obesity Insomnia Spinal cord stimulator status Medical History Shingles Sebaceous cyst Lumbar radicular pain Resistant hypertension Hearing deficit Chronic back pain greater than 3 months duration Surgical History H/O excision of mass (06/09/23) Difficult airway for intubation Hx of elbow surgery H/O arthroscopy of right knee S/P insertion of spinal cord stimulator History of colonoscopy History of esophagogastroduodenoscopy (EGD) History of tooth extraction S/P LASIK surgery of both eyes History of cholecystectomy Hx of left knee surgery Family History Father Family history of diabetes mellitus Prostate cancer Grandmother Family history of diabetes mellitus Family/Other Family history of diabetes mellitus Family hx of colon cancer Grandfather Family hx of colon cancer Myocardial infarction Denies family history of Ovarian cancer Breast cancer Colorectal cancer Social History Smoking Status: Current every day smoker Tobacco Type: Cigarettes Age Started Using Tobacco: 18; packs per day: 1; Second Hand Exposure: No; Do You Dip or Chew Tobacco: No; Hx Alcohol Use: Yes Alcohol type: beer Alcohol Intake Frequency: 2-3 x/Week Alcohol Intake Frequency Comment: 6 pack 1x weekly Hx Substance Use: Yes Last Used Substance Other:: most recent 2 weeks ago Preferred Language: Nepali Communication Ability: Effective Visual Impairment: No Limitations Hearing Ability: Hard of Hearing Speed Runner Required: No Beliefs That Will Affect Care: None marital status: Current Living Situation: Alone current occupational status: employed and disabled 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 How many Children do You have: 1 Feels Safe at Home: Yes Childhood Exposure to Second-Hand Smoke: Yes Diet: regular Diet Comment: regular caffeine: Yes during the past year weight has: remained stable Dental Care, Regularly: No Physical Activity Frequency: Does not Exercise Seatbelt Use: never Sunscreen Use: Yes Assistive Devices: CPAP Allergies Allergies Allergy/AdvReac Type Severity Reaction Status Date / Time erythromycin base Allergy Severe anaphylaxis Verified 12/22/24 13:59 gabapentin Allergy Unknown MUSCLE/SHOULDER Verified 12/22/24 13:59 ACHES Home Meds Home Medications Medication Instructions Recorded Confirmed blood sugar diagnostic (OneTouch 12/31/23 12/22/24 Verio test strips) pen needle, diabetic 31 gauge x 12/31/23 12/22/24 5/16" (BD Ultra-Fine Short Pen Needle) valacyclovir 1 gram tablet 1,000 mg PO TID PRN 05/22/24 12/22/24 Previous Rx's Medication Instructions Recorded nystatin-triamcinolone 100,000 1 applic topical BID PRN Skin 12/29/23 unit/g-0.1 % topical cream Irritation #15 grams duloxetine 60 mg capsule,delayed 60 mg PO QAM #90 caps 02/24/24 release Jardiance 25 mg tablet 25 mg PO QPM #90 tabs 02/25/24 (empagliflozin) lansoprazole 30 mg capsule,delayed 30 mg PO QAM #90 caps 03/27/24 release duloxetine 30 mg capsule,delayed 30 mg PO QAM #90 caps 05/29/24 release rosuvastatin 20 mg tablet 20 mg PO HS #90 tabs 07/12/24 semaglutide 2 mg/dose (8 mg/3 mL) 2 mg (0.75 mL) subcut Q7D #3 mL 08/28/24 subcutaneous pen injector (Ozempic) baclofen 10 mg tablet 10 mg PO BID #60 tabs 09/06/24 atenolol 100 mg tablet 100 mg PO QAM #90 tabs 09/25/24 losartan 50 mg-hydrochlorothiazide 1 tab PO QAM #90 tabs 09/29/24 12.5 mg tablet amlodipine 5 mg tablet 10 mg (2 x 5 mg) PO HS #90 tabs 10/03/24 furosemide 80 mg tablet 80 mg PO QAM PRN Edema #90 tabs 10/31/24 FreeStyle Renetta 3 Plus Sensor #2 ea 11/27/24 (blood-glucose sensor) hydroxyzine HCl 25 mg tablet 25 mg PO QID PRN Anxiety #90 tabs 12/06/24 potassium chloride 20 mEq 20 meq PO BID #180 tabs 12/29/24 tablet,extended release(part/cryst) (Klor-Con M) varenicline tartrate 1 mg tablet 1 mg PO BID #56 tabs 01/08/25 (Chantix Continuing Month Box) bupropion HCl 300 mg 24 hr tablet, 300 mg PO QAM #90 tabs 01/15/25 extended release (Wellbutrin XL) pregabalin 225 mg capsule 225 mg PO BID #60 caps 01/15/25 Results & Data (ED) Vital Signs Vital Signs - 24 hr 01/21/25 15:32 01/21/25 15:59 01/21/25 16:16 Temperature 36.7 C Temperature Source Temporal Artery Scan Pulse Rate 122 H 98 H Pulse Rate [Apical] 99 H Respiratory Rate 18 23 Respiratory Effort / Characteristics Non-Labored Spontaneous Respiratory Depth Normal Respiratory Pattern Regular Blood Pressure 136/84 Blood Pressure [Right Arm] 125/84 Blood Pressure Mean 101 Blood Pressure Mean [Right Arm] 97 Pulse Oximetry 96 95 Oxygen Delivery Method Room Air Room Air Oxygen Flow Rate Sepsis Recent Fever Within 48 Hours No Sepsis New/Unexplained Change in Mental Status No Sepsis Action Taken by Nursing No Action Required 01/21/25 16:39 01/21/25 17:00 01/21/25 17:54 Temperature Temperature Source Pulse Rate Pulse Rate [Apical] 84 94 H Respiratory Rate 15 22 Respiratory Effort / Characteristics Non-Labored Non-Labored Respiratory Depth Normal Normal Respiratory Pattern Blood Pressure Blood Pressure [Right Arm] 136/88 118/92 Blood Pressure Mean Blood Pressure Mean [Right Arm] 104 100 Pulse Oximetry 94 92 97 Oxygen Delivery Method Room Air Nasal Cannula Nasal Cannula Oxygen Flow Rate 2 2 Sepsis Recent Fever Within 48 Hours Sepsis New/Unexplained Change in Mental Status Sepsis Action Taken by Nursing 01/21/25 18:37 01/21/25 18:37 01/21/25 18:42 Temperature 36.5 C Temperature Source Pulse Rate 94 H Pulse Rate [Apical] 96 H Respiratory Rate 27 H 27 H Respiratory Effort / Characteristics Non-Labored Spontaneous Respiratory Depth Normal Respiratory Pattern Regular Blood Pressure 131/79 Blood Pressure [Right Arm] 131/79 Blood Pressure Mean Blood Pressure Mean [Right Arm] 96 Pulse Oximetry 94 94 95 Oxygen Delivery Method Nasal Cannula Nasal Cannula Nasal Cannula Oxygen Flow Rate 2 2 2 Sepsis Recent Fever Within 48 Hours Sepsis New/Unexplained Change in Mental Status Sepsis Action Taken by Nursing Laboratory Data 01/21/25 16:06 01/21/25 16:06 Lab Results 01/21/25 Range/Units 16:06 WBC 14.39 H (4.8-10.8) K/ul RBC 3.88 L (4.70-6.10) M/uL Hgb 11.6 L (14.0-18.0) g/dl Hct 34.3 L (42.0-52.0) % MCV 88.4 (80.0-100.0) fL MCH 29.9 (25.0-34.0) pg MCHC 33.8 (32.0-36.0) g/dL RDW Std Deviation 41.8 (36.4-46.3) fL RDW Coeff of Jese 13.1 (11.5-14.5) % Plt Count 276 (130-400) K/uL MPV 10.5 (9.4-12.4) fL Immature Gran % (Auto) 0.6 % Neut % (Auto) 72.6 % Lymph % (Auto) 18.6 % [place] % (Auto) 6.7 % Eos % (Auto) 1.1 % Baso % (Auto) 0.4 % Neut # (Auto) 10.45 H (1.40-6.50) K/uL Lymph # (Auto) 2.67 (1.20-3.40) K/uL [place] # (Auto) 0.97 H (0.11-0.59) K/uL Eos # (Auto) 0.16 (0.00-0.50) K/uL Baso # (Auto) 0.06 (0.00-0.20) K/uL Immature Gran # (Auto) 0.08 (0.01-0.20) K/uL PT 10.8 (9.0-12.0) Seconds INR 1.0 (0.9-1.1) Sodium 140 (136-145) mmol/L Potassium 3.6 (3.5-5.1) mmol/L Chloride 103 (98-107) mmol/L Carbon Dioxide 29 (21-32) mmol/L Anion Gap 8 (3-11) BUN 12 (6-23) mg/dl Creatinine 0.56 L (0.6-1.4) mg/dl Est Cr Clr Drug Dosing 217.9 ml/min eGFR 118.59 BUN/Creatinine Ratio 21.4 H (10-20) Glucose 149 H (70-99(Fasting)) mg/dl Calcium 9.5 (8.6-10.3) mg/dl Total Bilirubin 0.6 (0.2-1.0) mg/dl AST 11 L (13-39) U/L ALT 14 (7-52) U/L Alkaline Phosphatase 82 (34-104) U/L Troponin I High Sens 5.4 (0-20) pg/ml Total Protein 7.3 (6.0-8.3) gm/dl Albumin 4.3 (3.4-5.0) gm/dl Globulin 3.0 (2.5-4.0) gm/dl Albumin/Globulin Ratio 1.4 (0.9-2) Lipase 23 (11-82) U/L Urine Color Yellow Urine Appearance Clear (Clear) Urine pH 6.0 (4.5-7.5) Ur Specific [place] > 1.045 H (1.000-1.030) Urine Protein Negative (Negative) Urine Glucose (UA) 3+ H (Negative) Urine Ketones Trace H (Negative) Urine Blood Negative (Negative) Urine Nitrite Negative (Negative) Urine Bilirubin Negative (Negative) Urine Urobilinogen Negative (Negative) Ur Leukocyte Esterase Negative (Negative) Administered Medications Discontinued Medications Fentanyl Citrate (Fentanyl Citrate Pf 100 Mcg/2 Ml Vial) 50 mcg IV NOW STA Stop: 01/21/25 17:54 Last Admin: 01/21/25 17:59 Dose: 50 mcg Documented By: CONSTANZA Ioversol (Optiray 320 125ml) 119 ml IV ONCE ONE Stop: 01/21/25 17:31 Last Admin: 01/21/25 17:31 Dose: 119 ml Documented By: EDK Morphine Sulfate (Morphine Sulfate 4 Mg/Ml 1 Ml Carp\\Vial) 4 mg IV NOW STA Stop: 01/21/25 16:24 Last Admin: 01/21/25 16:35 Dose: 4 mg Documented By: GROVER Ondansetron HCl (Ondansetron Inj 2 Mg/Ml 2 Ml Vial) 4 mg IV NOW STA Stop: 01/21/25 16:24 Last Admin: 01/21/25 16:35 Dose: 4 mg Documented By: GROVER Imaging Data Radiologist's Impression: Abdomen/Pelvis CT 01/21/25 16:23 EXAM: CT Chest Abdomen and Pelvis With Intravenous Contrast INDICATION: Pain following trauma several days ago. TECHNIQUE: Axial computed tomography images of the chest, abdomen and pelvis with intravenous contrast. Sagittal and coronal reformatted images were created and reviewed. This CT exam was performed using one or more of the following dose reduction techniques: automated exposure control, adjustment of the mA and/or kV according to patient size, and/or use of iterative reconstruction technique. CONTRAST: 119ml of Optiray 320 was administered intravenously. COMPARISON: No relevant prior studies available. FINDINGS: Limitations: None. CHEST: Lungs and pleural spaces: Small layering left pleural effusion. No consolidation. No pneumothorax. Heart: Cardiomegaly. No right heart strain. Small pericardial effusion noted. Cardiomegaly and trace pericardial effusion. Mediastinum: No abnormality noted. Thyroid: No abnormality noted. ABDOMEN: Liver: No abnormality noted. Gallbladder and bile ducts: Cholecystectomy. No ductal dilation or stone noted. Pancreas: Homogeneous enhancement. No mass, inflammation or ductal dilation. Spleen: There is grade 3 splenic laceration with subcapsular and perisplenic hematoma. No visible active extravasation. Adrenals: No significant abnormality noted. Kidneys and ureters: There is a 7 mm indeterminate hypodense nodule in the anterior cortex of the left renal midpole. Right kidney appears normal. There is homogeneous renal enhancement. Stomach and bowel: No distension or mucosal thickening. No inflammation noted. PELVIS: Appendix: No findings to suggest acute appendicitis. Bladder: No filling defects to suggest mass or large stone. No inflammation. Reproductive: No significant abnormality noted. CHEST, ABDOMEN and PELVIS: Intraperitoneal space: There is moderate hemoperitoneum. No free air. There is a small amount of hemoperitoneum around the liver which otherwise appears normal. Retroperitoneal space: No abnormality noted. No fluid collection. Bones/joints: No acute changes. Soft tissues: No significant abnormality noted. Vasculature: No abnormality noted. No aortic aneurysm. Lymph nodes: There are shotty mediastinal nodes measuring up to 1 cm. Mild atelectasis left base. Tubes, lines and devices: There is a spinal stimulator terminating at the mid thoracic level. IMPRESSION: 1. Grade 3 splenic laceration with moderate subcapsular and perisplenic hematoma and hemoperitoneum. 2. Indeterminant 7 mm hypodensity in the left kidney too small to characterize likely benign. No further assessment required. 3. Trace left pleural effusion. No traumatic abnormality in the thorax. Findings discussed by phone with Dr. Martinez at approximately 5:45 PM 01/21/2025 ACT 112: N/A Electronically signed by Ashanti Cordova 01-21-2025 5:[address] 01/21/25 16:23 EXAM: CT Chest Abdomen and Pelvis With Intravenous Contrast INDICATION: Pain following trauma several days ago. TECHNIQUE: Axial computed tomography images of the chest, abdomen and pelvis with intravenous contrast. Sagittal and coronal reformatted images were created and reviewed. This CT exam was performed using one or more of the following dose reduction techniques: automated exposure control, adjustment of the mA and/or kV according to patient size, and/or use of iterative reconstruction technique. CONTRAST: 119ml of Optiray 320 was administered intravenously. COMPARISON: No relevant prior studies available. FINDINGS: Limitations: None. CHEST: Lungs and pleural spaces: Small layering left pleural effusion. No consolidation. No pneumothorax. Heart: Cardiomegaly. No right heart strain. Small pericardial effusion noted. Cardiomegaly and trace pericardial effusion. Mediastinum: No abnormality noted. Thyroid: No abnormality noted. ABDOMEN: Liver: No abnormality noted. Gallbladder and bile ducts: Cholecystectomy. No ductal dilation or stone noted. Pancreas: Homogeneous enhancement. No mass, inflammation or ductal dilation. Spleen: There is grade 3 splenic laceration with subcapsular and perisplenic hematoma. No visible active extravasation. Adrenals: No significant abnormality noted. Kidneys and ureters: There is a 7 mm indeterminate hypodense nodule in the anterior cortex of the left renal midpole. Right kidney appears normal. There is homogeneous renal enhancement. Stomach and bowel: No distension or mucosal thickening. No inflammation noted. PELVIS: Appendix: No findings to suggest acute appendicitis. Bladder: No filling defects to suggest mass or large stone. No inflammation. Reproductive: No significant abnormality noted. CHEST, ABDOMEN and PELVIS: Intraperitoneal space: There is moderate hemoperitoneum. No free air. There is a small amount of hemoperitoneum around the liver which otherwise appears normal. Retroperitoneal space: No abnormality noted. No fluid collection. Bones/joints: No acute changes. Soft tissues: No significant abnormality noted. Vasculature: No abnormality noted. No aortic aneurysm. Lymph nodes: There are shotty mediastinal nodes measuring up to 1 cm. Mild atelectasis left base. Tubes, lines and devices: There is a spinal stimulator terminating at the mid thoracic level. IMPRESSION: 1. Grade 3 splenic laceration with moderate subcapsular and perisplenic hematoma and hemoperitoneum. 2. Indeterminant 7 mm hypodensity in the left kidney too small to characterize likely benign. No further assessment required. 3. Trace left pleural effusion. No traumatic abnormality in the thorax. Findings discussed by phone with Dr. Martinez at approximately 5:45 PM 01/21/2025 ACT 112: N/A Electronically signed by Ashanti Cordova 01-21-2025 5:53 PM Discharge Plan Visit Data Chief Complaint: Trauma Stated Complaint: FALL, STOMACH PAIN, BLOATED FEELING ED Provider: Rachel Martinez Discharge Problem: Splenic laceration, Acute upper abdominal pain, Fall from standing Forms Stand Alone Forms: M.A. Transportation Services Prescriptions Prescriptions: No Action baclofen 10 mg tablet 10 mg PO BID Qty: 60 2RF nystatin-triamcinolone 100,000-0.1 unit/g-% cream 1 applic TOPICAL BID PRN (Reason: Skin Irritation) Qty: 15 2RF duloxetine 60 mg capsule,delayed release(DR/EC) 60 mg PO QAM Qty: 90 3RF Jardiance 25 mg tablet 25 mg PO QPM Qty: 90 3RF lansoprazole 30 mg capsule,delayed release(DR/EC) 30 mg PO QAM Qty: 90 3RF duloxetine 30 mg capsule,delayed release(DR/EC) 30 mg PO QAM Qty: 90 3RF rosuvastatin 20 mg tablet 20 mg PO HS Qty: 90 2RF Ozempic 2 mg/dose (8 mg/3 mL) pen injector 2 mg subcut Q7D Qty: 3 5RF atenolol 100 mg tablet 100 mg PO QAM Qty: 90 1RF losartan-hydrochlorothiazide 50-12.5 mg tablet 1 tab PO QAM Qty: 90 1RF amlodipine 5 mg tablet 10 mg PO HS Qty: 90 3RF furosemide 80 mg tablet 80 mg PO QAM PRN (Reason: Edema) Qty: 90 0RF (DME) FreeStyle Renetta 3 Plus Sensor Device See Rx Instructions .ROUTE .MEDSUPPLY Qty: 2 11RF Rx Instructions: change sensor every 15 days potassium chloride [Klor-Con M20] 20 mEq tablet,ER particles/crystals 20 meq PO BID Qty: 180 1RF varenicline tartrate [Chantix Continuing Month Box] 1 mg tablet 1 mg PO BID Qty: 56 0RF pregabalin 225 mg capsule 225 mg PO BID Qty: 60 3RF bupropion HCl [Wellbutrin XL] 300 mg tablet extended release 24 hr 300 mg PO QAM Qty: 90 1RF (DME) OneTouch Verio test strips Strip See Rx Instructions .Route Rx Instructions: Test blood sugar once daily PRN- Has Renetta (DME) pen needle, diabetic [BD Ultra-Fine Short Pen Needle] 31 gauge x 5/16" needle See Rx Instructions .ROUTE .MEDSUPPLY Rx Instructions: Inject insulin PRN valacyclovir 1 gram tablet 1,000 mg PO TID PRN cyanocobalamin (vitamin B-12) 1,000 mcg/mL solution 1,000 mcg IM ONCE Qty: 1 0RF hydroxyzine HCl 25 mg tablet 25 mg PO QID PRN (Reason: Anxiety ) Qty: 90 2RF Referrals Referrals: Deandre Butts CRNP [Primary Care Provider] -
[2025-01-21] MEDS: ONDANSETRON INJ 2 MG/ML 2 ML VIAL IV STA (16:35)
[2025-01-21] MEDS: MoRPHine SULFATE 4 MG/ML 1 ML CARP\\VIAL IV STA (16:35)
[2025-01-21 16:51] LABS: Albumin Globulin Ratio 1.4 (0.9-2); Albumin Level 4.3 gm/dl (3.4-5.0); BUN Creatinine Ratio 21.4 (10-20); Bilirubin,Total 0.6 mg/dl (0.2-1.0); Calcium 9.5 mg/dl (8.6-10.3); Creatinine Clr Calc Pharmacy 217.9 ml/min; Potassium 3.6 mmol/L (3.5-5.1); Total Protein 7.3 gm/dl (6.0-8.3)
[2025-01-21 16:54] LABS: Basophils # (auto) 0.06 K/uL (0.00-0.20); Basophils % (auto) 0.4 %; Eosinophils # (auto) 0.16 K/uL (0.00-0.50); Eosinophils % (auto) 1.1 %; Hematocrit (blood only) 34.3 % (42.0-52.0); Hemoglobin 11.6 g/dl (14.0-18.0); Immature Granulocytes # (auto) 0.08 K/uL (0.01-0.20); Immature Granulocytes % (auto) 0.6 %; Lymphocytes # (auto) 2.67 K/uL (1.20-3.40); Lymphocytes % (auto) 18.6 %; Mean Corpuscular Hemoglobin 29.9 pg (25.0-34.0); Mean Corpuscular Hgb Conc 33.8 g/dL (32.0-36.0); Mean Corpuscular Volume 88.4 fL (80.0-100.0); Mean Platelet Volume 10.5 fL (9.4-12.4); Monocytes # (auto) 0.97 K/uL (0.11-0.59); Monocytes % (auto) 6.7 %; Neutrophils # (auto) 10.45 K/uL (1.40-6.50); Neutrophils % (auto) 72.6 %; Platelet Count 276 K/uL (130-400); RDW Coefficient of Variation 13.1 % (11.5-14.5); RDW Standard Deviation 41.8 fL (36.4-46.3); Red Blood Count 3.88 M/uL (4.70-6.10); White Blood Count 14.39 K/ul (4.8-10.8)
[2025-01-21 16:58] LABS: Troponin I High Sensitivity 5.4 pg/ml (0-20)
[2025-01-21 17:02] LABS: Appearance Urine Clear (Clear); Bilirubin Urine Negative (Negative); Blood Urine Negative (Negative); Color Urine Yellow; Glucose Urine UA 3+ (Negative); Ketones Urine Trace (Negative); Leukocyte Esterase Urine Negative (Negative); Nitrite Urine Negative (Negative); Protein Urine Negative (Negative); Specific Gravity Urine > 1.045 (1.000-1.030); Urobilinogen Urine Negative (Negative)
[2025-01-21 17:13] LABS: Prothrombin Time 10.8 Seconds (9.0-12.0)
[2025-01-21] MEDS: OPTIRAY 320 125ml IV ONE (17:31)
--- NOTE | 2025-01-21 17:53 | CT Scan Report ---
EXAM: CT Chest Abdomen and Pelvis With Intravenous Contrast INDICATION: Pain following trauma several days ago. TECHNIQUE: Axial computed tomography images of the chest, abdomen and pelvis with intravenous contrast. Sagittal and coronal reformatted images were created and reviewed. This CT exam was performed using one or more of the following dose reduction techniques: automated exposure control, adjustment of the mA and/or kV according to patient size, and/or use of iterative reconstruction technique. CONTRAST: 119ml of Optiray 320 was administered intravenously. COMPARISON: No relevant prior studies available. FINDINGS: Limitations: None. CHEST: Lungs and pleural spaces: Small layering left pleural effusion. No consolidation. No pneumothorax. Heart: Cardiomegaly. No right heart strain. Small pericardial effusion noted. Cardiomegaly and trace pericardial effusion. Mediastinum: No abnormality noted. Thyroid: No abnormality noted. ABDOMEN: Liver: No abnormality noted. Gallbladder and bile ducts: Cholecystectomy. No ductal dilation or stone noted. Pancreas: Homogeneous enhancement. No mass, inflammation or ductal dilation. Spleen: There is grade 3 splenic laceration with subcapsular and perisplenic hematoma. No visible active extravasation. Adrenals: No significant abnormality noted. Kidneys and ureters: There is a 7 mm indeterminate hypodense nodule in the anterior cortex of the left renal midpole. Right kidney appears normal. There is homogeneous renal enhancement. Stomach and bowel: No distension or mucosal thickening. No inflammation noted. PELVIS: Appendix: No findings to suggest acute appendicitis. Bladder: No filling defects to suggest mass or large stone. No inflammation. Reproductive: No significant abnormality noted. CHEST, ABDOMEN and PELVIS: Intraperitoneal space: There is moderate hemoperitoneum. No free air. There is a small amount of hemoperitoneum around the liver which otherwise appears normal. Retroperitoneal space: No abnormality noted. No fluid collection. Bones/joints: No acute changes. Soft tissues: No significant abnormality noted. Vasculature: No abnormality noted. No aortic aneurysm. Lymph nodes: There are shotty mediastinal nodes measuring up to 1 cm. Mild atelectasis left base. Tubes, lines and devices: There is a spinal stimulator terminating at the mid thoracic level. IMPRESSION: 1. Grade 3 splenic laceration with moderate subcapsular and perisplenic hematoma and hemoperitoneum. 2. Indeterminant 7 mm hypodensity in the left kidney too small to characterize likely benign. No further assessment required. 3. Trace left pleural effusion. No traumatic abnormality in the thorax. Findings discussed by phone with Dr. Martinez at approximately 5:45 PM 01/21/2025 ACT 112: N/A Electronically signed by Ashanti Cordova 01-21-2025 5:53 PM
[2025-01-21] MEDS: fentaNYL citrate PF 100 MCG/2 ML VIAL IV STA (17:59)
--- NOTE | 2025-01-21 19:24 | History & Physical Report ---
Date of Service January 21, 2025 Assessment & Plan (1) Splenic laceration: Plan: Occurred when he fell on a staircase apparently striking his left side on the banister. He has a spleen laceration with subcapsular hematoma and hemoperitoneum. This occurred several days ago on January 18. It appears the bleeding has stopped as he is currently hemodynamically stable although hemoglobin is slightly low at 11.6. This will be monitored. Pain control measures. Telemetry. General surgery consultation (2) Diabetes mellitus, type 2: Plan: ADA diet. Sliding scale coverage. Jardiance is currently on hold (3) Hypertension: Plan: Continue amlodipine and atenolol. Losartan and hydrochlorothiazide are temporarily on hold (4) GERD (gastroesophageal reflux disease): Plan: Stable. PPI therapy (5) Hyperlipidemia: Plan: Stable. Continue statin therapy Plan Hopeful eventual discharge to home within the next 1 to 2 days. History of Present Illness Chief Complaint: 54-year-old white male who suffered a fall on a staircase several days ago on January 18. He struck his left lower ribs and denied acute onset of pain at that time. Over the course of the past several days the pain has grown worse and today he sought attention in the ED. Abdominal CT scan reveals evidence of a grade 3 laceration of the spleen with a moderate hemoperitoneum and subcapsular hematoma. The ER physician contacted [facility] trauma team and they stated due to the age of the injury they would not intervene urgently and would simply repeat labs and treat the pain and watch him which we can do here. He is hemodynamically stable. Hemoglobin level is 11.6 and will be monitored serially. Primary Care Provider: TWIN Ovalle Allergies Allergy/AdvReac Type Severity Reaction Status Date / Time erythromycin base Allergy Severe anaphylaxis Verified 12/22/24 13:59 gabapentin Allergy Unknown MUSCLE/SHOULDER Verified 12/22/24 13:59 ACHES Home Medications Medication Instructions Recorded Confirmed Type nystatin-triamcinolone 100,000 1 applic topical BID PRN Skin 12/29/23 01/21/25 Rx unit/g-0.1 % topical cream Irritation #15 grams blood sugar diagnostic (OneTouch 12/31/23 12/22/24 History Verio test strips) pen needle, diabetic 31 gauge x 12/31/23 12/22/24 History 516" (BD Ultra-Fine Short Pen Needle) duloxetine 60 mg capsule,delayed 60 mg PO QAM #90 caps 02/24/24 01/21/25 Rx release Jardiance 25 mg tablet 25 mg PO QPM #90 tabs 02/25/24 01/21/25 Rx (empagliflozin) lansoprazole 30 mg capsule,delayed 30 mg PO QAM #90 caps 03/27/24 01/21/25 Rx release valacyclovir 1 gram tablet 1,000 mg PO TID PRN Unknown 05/22/24 01/21/25 History duloxetine 30 mg capsule,delayed 30 mg PO QAM #90 caps 05/29/24 01/21/25 Rx release rosuvastatin 20 mg tablet 20 mg PO HS #90 tabs 07/12/24 01/21/25 Rx semaglutide 2 mg/dose (8 mg/3 mL) 2 mg (0.75 mL) subcut Q7D #3 mL 08/28/24 01/21/25 Rx subcutaneous pen injector (Ozempic) baclofen 10 mg tablet 10 mg PO BID #60 tabs 09/06/24 01/21/25 Rx atenolol 100 mg tablet 100 mg PO QAM #90 tabs 09/25/24 01/21/25 Rx losartan 50 mg-hydrochlorothiazide 1 tab PO QAM #90 tabs 09/29/24 01/21/25 Rx 12.5 mg tablet amlodipine 5 mg tablet 10 mg (2 x 5 mg) PO HS #90 tabs 10/03/24 01/21/25 Rx furosemide 80 mg tablet 80 mg PO QAM PRN Edema #90 tabs 10/31/24 01/21/25 Rx FreeStyle Renetta 3 Plus Sensor #2 ea 11/27/24 12/22/24 Rx (blood-glucose sensor) hydroxyzine HCl 25 mg tablet 25 mg PO QID PRN Anxiety #90 tabs 12/06/24 01/21/25 Rx potassium chloride 20 mEq 20 meq PO BID #180 tabs 12/29/24 01/21/25 Rx tablet,extended release(part/cryst) (Klor-Con M) varenicline tartrate 1 mg tablet 1 mg PO BID #56 tabs 01/08/25 01/21/25 Rx (Chantix Continuing Month Box) bupropion HCl 300 mg 24 hr tablet, 300 mg PO QAM #90 tabs 01/15/25 01/21/25 Rx extended release (Wellbutrin XL) pregabalin 225 mg capsule 225 mg PO BID #60 caps 01/15/25 01/21/25 Rx Past Med/Surg History Problem List (Updated 01/21/25 @ 18:50 by Rachel Martinez MD) Fall from standing (Acute) Acute upper abdominal pain (Acute) Splenic laceration (Acute) Lumbar spondylosis Chronic back pain Lumbar stenosis Diabetes mellitus, type 2 Fatty liver disease, nonalcoholic GERD (gastroesophageal reflux disease) UNDER CONTROL Asthma hx-NO INHALERS Anxiety Hyperlipidemia (Chronic) Depression (Chronic) Lynn esophagus (Chronic ~11/2009) Diabetic peripheral neuropathy associated with type 2 diabetes mellitus (Chronic) Hypertension History of colon polyps (Chronic ~06/2017) 5 mm sigmoid serrated adenoma CATALINA (obstructive sleep apnea) (Chronic) Tobacco abuse disorder (Chronic) Alcohol abuse (Chronic) 2 cases of beer per week. Vitamin D deficiency (Chronic) Proteinuria due to type 2 diabetes mellitus Personal history of diabetic foot ulcer Class 3 obesity Insomnia Spinal cord stimulator status Medical History Shingles Sebaceous cyst Lumbar radicular pain Resistant hypertension Hearing deficit Chronic back pain greater than 3 months duration Surgical History H/O excision of mass (06/09/23) Difficult airway for intubation Hx of elbow surgery H/O arthroscopy of right knee S/P insertion of spinal cord stimulator History of colonoscopy History of esophagogastroduodenoscopy (EGD) History of tooth extraction S/P LASIK surgery of both eyes History of cholecystectomy Hx of left knee surgery Family History Father Family history of diabetes mellitus Prostate cancer Grandmother Family history of diabetes mellitus Family/Other Family history of diabetes mellitus Family hx of colon cancer Grandfather Family hx of colon cancer Myocardial infarction Denies family history of Ovarian cancer Breast cancer Colorectal cancer Social History Smoking Status: Current every day smoker Tobacco Type: Cigarettes Age Started Using Tobacco: 18; packs per day: 1; Second Hand Exposure: No; Do You Dip or Chew Tobacco: No; Hx Alcohol Use: Yes Alcohol type: beer Alcohol Intake Frequency: 2-3 x/Week Alcohol Intake Frequency Comment: 6 pack 1x weekly Hx Substance Use: Yes Last Used Substance Other:: most recent 2 weeks ago Preferred Language: Irish Communication Ability: Effective Visual Impairment: No Limitations Hearing Ability: Hard of Hearing [employer] Boards Required: No Beliefs That Will Affect Care: None marital status: Current Living Situation: Alone current occupational status: employed and disabled 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 Pleuritic left-sided pain with deep inspiration Cardiacno palpitations, no chest pain, no syncope Cy nausea, vomiting, diarrhea, melena, hematochezia. He does notice mild abdominal distention GUno urinary retention, no urinary incontinence, no dysuria, no hematuria Musculoskeletalno joint pain, no muscle tenderness Skinno bruising, no rashes, no pruritus Neurono isolated weakness, no paresthesia, no weakness Psychno depression, no anxiety Physical Exam 2 Physical Exam: General-alert and oriented x3, no fever, no chills HEENT-head atraumatic and normocephalic, pupils equal and reactive to light, extraocular muscles intact Neck-no lymphadenopathy or thyromegaly, trachea midline Chest-clear to auscultation. No rales, wheezing or rhonchi Cardiac-regular rate and rhythm, normal S1 and S2 Abdomen-normal bowel sounds, no hepatosplenomegaly. Tender to palpation in the left upper quadrant area. No masses. No palpable ascites Extremities-no cyanosis, clubbing, or edema Neuro-cranial nerves II through XII intact, motor and sensory function within normal limits, strength symmetrical, no focal deficits Psych-normal affect, normal mood Results & Data Results & Data Vital Signs (Past 12 Hours) Vital Signs Temp Pulse Pulse Resp BP BP Pulse Ox 01/21/25 18:42 95 01/21/25 18:37 36.5 C 94 H 27 H 131/79 94 01/21/25 18:37 96 H 27 H 131/79 94 01/21/25 17:54 94 H 22 118/92 97 01/21/25 17:00 84 15 136/88 92 01/21/25 16:39 94 01/21/25 16:16 98 H 01/21/25 15:59 99 H 23 125/84 95 01/21/25 15:32 36.7 C 122 H 18 136/84 96 O2 Del Method O2 Flow Rate 01/21/25 18:42 Nasal Cannula 2 01/21/25 18:37 Nasal Cannula 2 01/21/25 18:37 Nasal Cannula 2 01/21/25 17:54 Nasal Cannula 2 01/21/25 17:00 Nasal Cannula 2 01/21/25 16:39 Room Air 01/21/25 16:16 01/21/25 15:59 Room Air 01/21/25 15:32 Room Air Laboratory Results 01/21/25 16:06 01/21/25 16:06 Code Status & VTE Plan Code Status Full code PG Care Time/CCT Total # of Minutes Spent Total Time Spent with Patient: Total time spent is greater than 50% in coordination of care (as documented) at patient's floor/unit and/or counseling patient: Coding Level of Care Code 62880 INT INP/OBS CARE 3/75MIN Diagnoses Splenic laceration S36.039A Diabetes mellitus, type 2 E11.9 Hypertension I10 GERD (gastroesophageal reflux disease) K21.9 Mixed hyperlipidemia E78.2 Hyperlipidemia type: mixed hyperlipidemia (5) Hyperlipidemia Hyperlipidemia type: mixed hyperlipidemia Qualified Code(s): E78.2 - Mixed hyperlipidemia
[2025-01-21 19:40] LABS: Hematocrit (blood only) 32.5 % (42.0-52.0); Hemoglobin 11.3 g/dl (14.0-18.0)
[2025-01-21] MEDS ORDERED: hydrOXYzine HCl 25 MG TAB PO PRN (21:19)
[2025-01-21] MEDS ORDERED: GLUCOSE 40% GEL 15 GM TUBE PO PRN (21:19)
[2025-01-21] MEDS ORDERED: GLUCOSE 10 TAB/TUBE PO PRN (21:19)
[2025-01-21] MEDS ORDERED: CARBOHYDRATES FOR HYPOGLYCEMIA PO PRN (21:19)
[2025-01-21] MEDS ORDERED: ONDANSETRON INJ 2 MG/ML 2 ML VIAL IV PRN (21:19)
[2025-01-21] MEDS ORDERED: GLUCAGON FOR INJ 1 MG VIAL SQ PRN (21:19)
[2025-01-21] MEDS ORDERED: DEXTROSE 50% 50 ML SYRINGE IV PRN (21:19)
[2025-01-21] MEDS: MoRPHine SULFATE 2 MG/ML CARP IV PRN (21:29)
[2025-01-21] MEDS: amLODIPine BESYLATE 5 MG TAB PO SCH (22:11)
[2025-01-21] MEDS: POTASSIUM CHLORIDE CRTAB 20 MEQ TABCR PO SCH (22:11)
[2025-01-21] MEDS: ROSUVASTATIN CALCIUM 20 MG TAB PO SCH (22:12)
[2025-01-21] MEDS: INSULIN ASPART PER UNIT CHARGE SC SCH (22:13)
[2025-01-21] MEDS: PREGABALIN 75 MG CAP PO SCH (22:13)
[2025-01-22] MEDS: HYDROmorphone INJ 0.5 MG/0.5 ML SYR IV STA (03:13)
[2025-01-22 06:42] LABS: Basophils # (auto) 0.05 K/uL (0.00-0.20); Basophils % (auto) 0.4 %; Eosinophils # (auto) 0.22 K/uL (0.00-0.50); Eosinophils % (auto) 1.9 %; Hematocrit (blood only) 30.9 % (42.0-52.0); Hemoglobin 10.5 g/dl (14.0-18.0); Immature Granulocytes # (auto) 0.07 K/uL (0.01-0.20); Immature Granulocytes % (auto) 0.6 %; Lymphocytes % (auto) 19.4 %; Mean Corpuscular Hemoglobin 29.9 pg (25.0-34.0); Mean Platelet Volume 10.4 fL (9.4-12.4); Monocytes # (auto) 1.04 K/uL (0.11-0.59); Monocytes % (auto) 9.2 %; Neutrophils # (auto) 7.78 K/uL (1.40-6.50); Neutrophils % (auto) 68.5 %; Platelet Count 215 K/uL (130-400); RDW Coefficient of Variation 13.2 % (11.5-14.5); RDW Standard Deviation 41.9 fL (36.4-46.3); Red Blood Count 3.51 M/uL (4.70-6.10); White Blood Count 11.36 K/ul (4.8-10.8)
[2025-01-22 07:07] LABS: BUN Creatinine Ratio 20.3 (10-20); Creatinine Clr Calc Pharmacy 190.1 ml/min; Potassium 3.8 mmol/L (3.5-5.1)
[2025-01-22] MEDS: DULoxetine HCL 30 MG CAP PO SCH (07:40)
[2025-01-22] MEDS: buPROPion XL 300 MG TABCR PO SCH (07:40)
[2025-01-22] MEDS: DULoxetine HCL 60 MG CAP PO SCH (07:40)
[2025-01-22] MEDS: ATENOLOL 50 MG TABLET PO SCH (07:40)
[2025-01-22] MEDS: PANTOprazole 40 MG TAB PO SCH (07:40)
--- NOTE | 2025-01-22 08:27 | Hospitalist Progress Note ---
Date of Service January 22, 2025 Assessment & Plan (1) Splenic laceration: (2) Diabetes mellitus, type 2: (3) Hypertension: (4) GERD (gastroesophageal reflux disease): (5) Hyperlipidemia: Plan Patient fell down stairs and and struck his left side on a banister on 01/18. Splenic laceration on imaging. Continued stay to trend H&H, monitor hemodynamic stability, and monitor for progression/worsening of left-sided flank pain. #Splenic laceration Patient fell down stairs and and struck his left side on a banister on 01/18 A/P CT revealed a grade 3 splenic laceration with moderate subcapsular perisplenic hematoma ED did reach out to [place] at the time, but given the age of patient's injury, it was recommended to monitor with repeat labs/pain control IV Dilaudid PRN Hgb 11.6-> 11.3-> 10.5 on arrival Trend H&H q6h for now General Surgery consult appreciated Patient is hemodynamically stable at this time Hopefully, patient's splenic bleed will heal on its own; however, if his hemoglobin downtrends or pain worsens he may require transfer to [facility] for IR Activity: Strict bedrest #T2DM Last A1c at 5.3% on 12/14/2024 Hold Jardiance, semaglutide SSI with target BSG range 110-180mg/dL, CF 20, carb ratio 10 T2DM diet BSG ACHS Adjust regimen as needed Chronic stable conditions: #HTNamlodipine, atenolol; continue to hold losartanHCTZ #HLDrosuvastatin #GERDlansoprazole-> Protonix daily; IV famotidine PRN Disposition: MedSurg telemetry T2DM diet VTE PPx: Hold chemical DVT PPx in the setting of splenic laceration; SCDs Admission and Anticipated Discharge Date Admission Date: January 21, 2025 Subjective Edward characterizes it as left-sided flank pain as a "dull, achy" pain, which he rates 4/10 after receiving Dilaudid this morning. He does report that movements like twisting exacerbate the pain. He also reports that eating sometimes exacerbates the pain. The pain does radiate to his left shoulder and neck, especially with movements. Patient reports that he was taking Aleve for the pain prior to coming in the hospital. He recently fell and struck his left side on 01/18, and reports that he was okay for a couple days and even went to [place] on Wednesday; however, on his drive back from [place], he stopped for a bowel movement and became lightheaded, nauseous, and diaphoretic. Patient's last bowel movement was at 5 PM on Wednesday. He denies noticing any rashes, bruising, or bleeding on his left flank or back. He reports he does have a history of Percocet use (10 mg 3 times daily) which she was taking for his lower back pain, but denies taking any prior to coming into the hospital. Patient had difficulty sleeping last night, but reports that it was mainly due to not having his CPAP; he uses a CPAP at night; no supplemental oxygen. No prior cardiac history; no history of MIs or heart stents. He does have history of diabetes, but reports he has been off insulin for the past year ever since he quit drinking. Patient has 2 Huskies at home (Shadow and Jose). ROS: Patient endorses headache (which he attributes to morphine use), pleuritic CP, indigestion, and constant/dull left-sided flank pain. Patient denies fever, chills, night sweats, dizziness, lightheadedness, chest pain, chest palpitations, SOB, cough, right sided abdominal or flank pain, changes in urinary or bowel habits, melena, saddle anesthesia, or blood in the urine or stool. Review of Systems Review of Systems: See HPI above Physical Exam Physical Exam: General: no acute distress; pleasant affect; non-toxic appearing; well- nourished; cooperative; SpO2 93% on RA HEENT: normocephalic, atraumatic; no scleral icterus; PERRLA; vision and hearing grossly intact Neck: supple; no lymphadenopathy; trachea midline Skin: warm, dry without signs of tenting; no cyanosis; no rashes, bruising, lesions, or erythema noted CV: chest wall NTP; RRR; S1/S2 normal; no murmurs/rubs/gallops; pulses intact and symmetric at radial, DP, and PT Lungs: no acute respiratory distress; symmetrical chest wall expansion; clear breath sounds across all lung benavides w/o adventitious sounds; no wheezing Left flank: No signs of active bleeding or bruising; left flank and LUQ/LLQ abdomen are TTP ABD: Soft right side is NTP; BS present; no rebound/guarding; no distention MSK: no tics or fasciculations; no edema noted in the LEs b/l, nonerythematous Neuro: A&Ox3; normal mood and affect; fluent speech; no focal deficits; sensation intact and symmetric in the LEs bilaterally Results & Data Results & Data Vital Signs (Past 12 Hours) Vital Signs Temp Pulse Pulse Pulse Resp BP Pulse Ox 01/22/25 08:02 36.7 C 80 16 129/76 93 01/22/25 07:55 01/22/25 03:22 83 16 97 01/22/25 02:40 84 01/22/25 02:34 01/22/25 02:34 36.6 C 82 20 127/78 96 01/22/25 02:02 80 01/22/25 00:43 96 H 18 112/81 95 01/21/25 22:30 81 25 H 128/83 95 01/21/25 21:00 89 20 119/91 94 O2 Del Method O2 Flow Rate 01/22/25 08:02 Room Air 01/22/25 07:55 Room Air, CPAP 01/22/25 03:22 01/22/25 02:40 01/22/25 02:34 Nasal Cannula 2 01/22/25 02:34 Nasal Cannula 2 01/22/25 02:02 01/22/25 00:43 Room Air, Nasal Cannula 2 01/21/25 22:30 Nasal Cannula 2 01/21/25 21:00 Nasal Cannula 2 Laboratory Results Abnormal lab results 01/21/25 01/21/25 01/21/25 Range/Units 16:06 19:12 22:02 WBC 14.39 H (4.8-10.8) K/ul RBC 3.88 L (4.70-6.10) M/uL Hgb 11.6 L 11.3 L (14.0-18.0) g/dl Hct 34.3 L 32.5 L (42.0-52.0) % Neut # (Auto) 10.45 H (1.40-6.50) K/uL [place] # (Auto) 0.97 H (0.11-0.59) K/uL Creatinine 0.56 L (0.6-1.4) mg/dl BUN/Creatinine Ratio 21.4 H (10-20) Glucose 149 H (70-99(Fasting)) mg/dl POC Glucose 146 H (70-99) mg/dl AST 11 L (13-39) U/L Ur Specific [place] > 1.045 H (1.000-1.030) Urine Glucose (UA) 3+ H (Negative) Urine Ketones Trace H (Negative) 01/21/25 01/22/25 Range/Units 22:05 06:08 WBC 11.36 H (4.8-10.8) K/ul RBC 3.51 L (4.70-6.10) M/uL Hgb 10.5 L (14.0-18.0) g/dl Hct 30.9 L (42.0-52.0) % Neut # (Auto) 7.78 H (1.40-6.50) K/uL [place] # (Auto) 1.04 H (0.11-0.59) K/uL Creatinine (0.6-1.4) mg/dl BUN/Creatinine Ratio 20.3 H (10-20) Glucose 116 H (70-99(Fasting)) mg/dl POC Glucose 132 H (70-99) mg/dl AST (13-39) U/L Ur Specific [place] (1.000-1.030) Urine Glucose (UA) (Negative) Urine Ketones (Negative) Diagnostic Findings Abdomen/Pelvis CT 01/21/25 16:23 EXAM: CT Chest Abdomen and Pelvis With Intravenous Contrast INDICATION: Pain following trauma several days ago. TECHNIQUE: Axial computed tomography images of the chest, abdomen and pelvis with intravenous contrast. Sagittal and coronal reformatted images were created and reviewed. This CT exam was performed using one or more of the following dose reduction techniques: automated exposure control, adjustment of the mA and/or kV according to patient size, and/or use of iterative reconstruction technique. CONTRAST: 119ml of Optiray 320 was administered intravenously. COMPARISON: No relevant prior studies available. FINDINGS: Limitations: None. CHEST: Lungs and pleural spaces: Small layering left pleural effusion. No consolidation. No pneumothorax. Heart: Cardiomegaly. No right heart strain. Small pericardial effusion noted. Cardiomegaly and trace pericardial effusion. Mediastinum: No abnormality noted. Thyroid: No abnormality noted. ABDOMEN: Liver: No abnormality noted. Gallbladder and bile ducts: Cholecystectomy. No ductal dilation or stone noted. Pancreas: Homogeneous enhancement. No mass, inflammation or ductal dilation. Spleen: There is grade 3 splenic laceration with subcapsular and perisplenic hematoma. No visible active extravasation. Adrenals: No significant abnormality noted. Kidneys and ureters: There is a 7 mm indeterminate hypodense nodule in the anterior cortex of the left renal midpole. Right kidney appears normal. There is homogeneous renal enhancement. Stomach and bowel: No distension or mucosal thickening. No inflammation noted. PELVIS: Appendix: No findings to suggest acute appendicitis. Bladder: No filling defects to suggest mass or large stone. No inflammation. Reproductive: No significant abnormality noted. CHEST, ABDOMEN and PELVIS: Intraperitoneal space: There is moderate hemoperitoneum. No free air. There is a small amount of hemoperitoneum around the liver which otherwise appears normal. Retroperitoneal space: No abnormality noted. No fluid collection. Bones/joints: No acute changes. Soft tissues: No significant abnormality noted. Vasculature: No abnormality noted. No aortic aneurysm. Lymph nodes: There are shotty mediastinal nodes measuring up to 1 cm. Mild atelectasis left base. Tubes, lines and devices: There is a spinal stimulator terminating at the mid thoracic level. IMPRESSION: 1. Grade 3 splenic laceration with moderate subcapsular and perisplenic hematoma and hemoperitoneum. 2. Indeterminant 7 mm hypodensity in the left kidney too small to characterize likely benign. No further assessment required. 3. Trace left pleural effusion. No traumatic abnormality in the thorax. Findings discussed by phone with Dr. Martinez at approximately 5:45 PM 01/21/2025 ACT 112: N/A Electronically signed by Ashanti Cordova 01-21-2025 5:[address] 01/21/25 16:23 EXAM: CT Chest Abdomen and Pelvis With Intravenous Contrast INDICATION: Pain following trauma several days ago. TECHNIQUE: Axial computed tomography images of the chest, abdomen and pelvis with intravenous contrast. Sagittal and coronal reformatted images were created and reviewed. This CT exam was performed using one or more of the following dose reduction techniques: automated exposure control, adjustment of the mA and/or kV according to patient size, and/or use of iterative reconstruction technique. CONTRAST: 119ml of Optiray 320 was administered intravenously. COMPARISON: No relevant prior studies available. FINDINGS: Limitations: None. CHEST: Lungs and pleural spaces: Small layering left pleural effusion. No consolidation. No pneumothorax. Heart: Cardiomegaly. No right heart strain. Small pericardial effusion noted. Cardiomegaly and trace pericardial effusion. Mediastinum: No abnormality noted. Thyroid: No abnormality noted. ABDOMEN: Liver: No abnormality noted. Gallbladder and bile ducts: Cholecystectomy. No ductal dilation or stone noted. Pancreas: Homogeneous enhancement. No mass, inflammation or ductal dilation. Spleen: There is grade 3 splenic laceration with subcapsular and perisplenic hematoma. No visible active extravasation. Adrenals: No significant abnormality noted. Kidneys and ureters: There is a 7 mm indeterminate hypodense nodule in the anterior cortex of the left renal midpole. Right kidney appears normal. There is homogeneous renal enhancement. Stomach and bowel: No distension or mucosal thickening. No inflammation noted. PELVIS: Appendix: No findings to suggest acute appendicitis. Bladder: No filling defects to suggest mass or large stone. No inflammation. Reproductive: No significant abnormality noted. CHEST, ABDOMEN and PELVIS: Intraperitoneal space: There is moderate hemoperitoneum. No free air. There is a small amount of hemoperitoneum around the liver which otherwise appears normal. Retroperitoneal space: No abnormality noted. No fluid collection. Bones/joints: No acute changes. Soft tissues: No significant abnormality noted. Vasculature: No abnormality noted. No aortic aneurysm. Lymph nodes: There are shotty mediastinal nodes measuring up to 1 cm. Mild atelectasis left base. Tubes, lines and devices: There is a spinal stimulator terminating at the mid thoracic level. IMPRESSION: 1. Grade 3 splenic laceration with moderate subcapsular and perisplenic hematoma and hemoperitoneum. 2. Indeterminant 7 mm hypodensity in the left kidney too small to characterize likely benign. No further assessment required. 3. Trace left pleural effusion. No traumatic abnormality in the thorax. Findings discussed by phone with Dr. Martinez at approximately 5:45 PM 01/21/2025 ACT 112: N/A Electronically signed by Ashanti Cordova 01-21-2025 5:53 PM PG Care Time/CCT Total # of Minutes Spent Total Time Spent with Patient: Total time spent is greater than 50% in coordination of care (as documented) at patient's floor/unit and/or counseling patient: Coding [place] [address] SUB INP/OBS CARE 3/50MIN Patient Type Established History Comprehensive Exam Comprehensive Medical Decision Making High Complexity Diagnoses Splenic laceration S36.039A Diabetes mellitus, type 2 E11.9 Hypertension I10 GERD (gastroesophageal reflux disease) K21.9 Mixed hyperlipidemia E78.2 Hyperlipidemia type: mixed hyperlipidemia (5) Hyperlipidemia Hyperlipidemia type: mixed hyperlipidemia Qualified Code(s): E78.2 - Mixed hyperlipidemia
[2025-01-22] MEDS: HYDROmorphone INJ 0.5 MG/0.5 ML SYR IV PRN (09:15)
--- NOTE | 2025-01-22 09:48 | Surgery Consultation ---
Date of Consultation January 22, 2025 Assessment & Plan (1) Splenic laceration: serial H/Hs bedrest 5 days pain control hopefully will not need intervention History of Present Illness Attending Physician: Rajinder Luo History of Present Illness This is a 54YO male who fell on his left side on a staircase on 01/18. He developed worsening abdominal pain over the course of the past several days. A CT scan reveals evidence of a grade 3 laceration of the spleen with a moderate hemoperitoneum and subcapsular hematoma. I recommended transfer so that in house residents and IR would be available. The trauma team [facility] trauma team refused transfer due to the age of the injury they would not intervene urgently and would simply repeat labs and treat the pain and watch him which we can do here. He is hemodynamically stable. Hemoglobin level is down to 10.5 but he does not have worsening pain. Allergies Allergy/AdvReac Type Severity Reaction Status Date / Time erythromycin base Allergy Severe anaphylaxis Verified 12/22/24 13:59 gabapentin Allergy Unknown MUSCLE/SHOULDER Verified 12/22/24 13:59 ACHES Home Medications Medication Instructions Recorded Confirmed Type nystatin-triamcinolone 100,000 1 applic topical BID PRN Skin 12/29/23 01/21/25 Rx unit/g-0.1 % topical cream Irritation #15 grams blood sugar diagnostic (OneTouch 12/31/23 12/22/24 History Verio test strips) pen needle, diabetic 31 gauge x 12/31/23 12/22/24 History 5/16" (BD Ultra-Fine Short Pen Needle) duloxetine 60 mg capsule,delayed 60 mg PO QAM #90 caps 02/24/24 01/21/25 Rx release Jardiance 25 mg tablet 25 mg PO QPM #90 tabs 02/25/24 01/21/25 Rx (empagliflozin) lansoprazole 30 mg capsule,delayed 30 mg PO QAM #90 caps 03/27/24 01/21/25 Rx release valacyclovir 1 gram tablet 1,000 mg PO TID PRN Unknown 05/22/24 01/21/25 History duloxetine 30 mg capsule,delayed 30 mg PO QAM #90 caps 05/29/24 01/21/25 Rx release rosuvastatin 20 mg tablet 20 mg PO HS #90 tabs 07/12/24 01/21/25 Rx semaglutide 2 mg/dose (8 mg/3 mL) 2 mg (0.75 mL) subcut Q7D #3 mL 08/28/24 01/21/25 Rx subcutaneous pen injector (Ozempic) baclofen 10 mg tablet 10 mg PO BID #60 tabs 09/06/24 01/21/25 Rx atenolol 100 mg tablet 100 mg PO QAM #90 tabs 09/25/24 01/21/25 Rx losartan 50 mg-hydrochlorothiazide 1 tab PO QAM #90 tabs 09/29/24 01/21/25 Rx 12.5 mg tablet amlodipine 5 mg tablet 10 mg (2 x 5 mg) PO HS #90 tabs 10/03/24 01/21/25 Rx furosemide 80 mg tablet 80 mg PO QAM PRN Edema #90 tabs 10/31/24 01/21/25 Rx FreeStyle Renetta 3 Plus Sensor #2 ea 11/27/24 12/22/24 Rx (blood-glucose sensor) hydroxyzine HCl 25 mg tablet 25 mg PO QID PRN Anxiety #90 tabs 12/06/24 01/21/25 Rx potassium chloride 20 mEq 20 meq PO BID #180 tabs 12/29/24 01/21/25 Rx tablet,extended release(part/cryst) (Klor-Con M) varenicline tartrate 1 mg tablet 1 mg PO BID #56 tabs 01/08/25 01/21/25 Rx (Chantix Continuing Month Box) bupropion HCl 300 mg 24 hr tablet, 300 mg PO QAM #90 tabs 01/15/25 01/21/25 Rx extended release (Wellbutrin XL) pregabalin 225 mg capsule 225 mg PO BID #60 caps 01/15/25 01/21/25 Rx Patient History Medical History Shingles Sebaceous cyst Lumbar radicular pain Resistant hypertension Hearing deficit Chronic back pain greater than 3 months duration Surgical History H/O excision of mass (06/09/23) Difficult airway for intubation Hx of elbow surgery H/O arthroscopy of right knee S/P insertion of spinal cord stimulator History of colonoscopy History of esophagogastroduodenoscopy (EGD) History of tooth extraction S/P LASIK surgery of both eyes History of cholecystectomy Hx of left knee surgery Family History Father Family history of diabetes mellitus Prostate cancer Grandmother Family history of diabetes mellitus Family/Other Family history of diabetes mellitus Family hx of colon cancer Grandfather Family hx of colon cancer Myocardial infarction Denies family history of Ovarian cancer Breast cancer Colorectal cancer Social History Smoking Status: Current every day smoker Tobacco Type: Cigarettes Age Started Using Tobacco: 18; packs per day: 1; Cigarettes Per Day: 5-8 per day; Second Hand Exposure: No; Do You Dip or Chew Tobacco: No; Hx Alcohol Use: Yes Alcohol type: beer Alcohol Intake Frequency: 2-3 x/Week Alcohol Intake Frequency Comment: 6 pack 1x weekly Hx Substance Use: Yes Preferred Language: Uzbek Communication Ability: Effective Visual Impairment: No Limitations Hearing Ability: Hard of Hearing Dietary Services Manager Required: No Beliefs That Will Affect Care: None marital status: Current Living Situation: Alone current occupational status: employed and disabled 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 How many Children do You have: 1 Feels Safe at Home: Yes Childhood Exposure to Second-Hand Smoke: Yes Diet: regular Diet Comment: regular caffeine: Yes during the past year weight has: remained stable Dental Care, Regularly: No Physical Activity Frequency: Does not Exercise Seatbelt Use: never Sunscreen Use: Yes Assistive Devices: CPAP and Glasses Review of Systems Constitutional: no fever and no chills Eyes: no problem reported Ear, Nose, Mouth, Throat: no problem reported Respiratory: no cough and no dyspnea Cardiovascular: no chest pain Gastrointestinal: + abdominal pain; no nausea, no vomiting and no change in bowel habits Genitourinary: no dysuria Musculoskeletal: no back pain Integumentary: no problem reported Neurologic: no localized weakness and no generalized weakness Psychiatric: no behavioral changes Hematologic / Lymphatic: no easy bleeding and no easy bruising Physical Exam Constitutional: WD/WN, vitals as above Eyes: PERRL; no scleral abnormality ENMT: external ear and nose normal, oropharynx normal Neck: trachea midline Respiratory: normal respiratory effort, lungs clear to auscultation no respiratory distress Cardiovascular: RRR, no murmur, no edema Gastrointestinal (Abdomen): Inspection/Auscultation: abdomen normal to inspection and normal bowel sounds; abdomen not distended and no visible herniation Percussion/Palpation: + abdomen tender and abdomen soft; no guarding and abdomen not rigid Musculoskeletal: Head/Neck/Chest: normocephalic and head atraumatic Skin: no rashes, warm and dry Results & Data Vital Signs (Past 12 Hours) Vital Signs Temp Pulse Pulse Pulse Resp BP Pulse Ox 01/22/25 09:02 81 01/22/25 08:02 36.7 C 80 16 129/76 93 01/22/25 07:55 01/22/25 03:22 83 16 97 01/22/25 02:40 84 01/22/25 02:34 01/22/25 02:34 36.6 C 82 20 127/78 96 01/22/25 02:02 80 01/22/25 00:43 96 H 18 112/81 95 01/21/25 22:30 81 25 H 128/83 95 O2 Del Method O2 Flow Rate 01/22/25 09:02 01/22/25 08:02 Room Air 01/22/25 07:55 Room Air, CPAP 01/22/25 03:22 01/22/25 02:40 01/22/25 02:34 Nasal Cannula 2 01/22/25 02:34 Nasal Cannula 2 01/22/25 02:02 01/22/25 00:43 Room Air, Nasal Cannula 2 01/21/25 22:30 Nasal Cannula 2 Diagnostic Findings EXAM: CT Chest Abdomen and Pelvis With Intravenous Contrast INDICATION: Pain following trauma several days ago. TECHNIQUE: Axial computed tomography images of the chest, abdomen and pelvis with intravenous contrast. Sagittal and coronal reformatted images were created and reviewed. This CT exam was performed using one or more of the following dose reduction techniques: automated exposure control, adjustment of the mA and/or kV according to patient size, and/or use of iterative reconstruction technique. CONTRAST: 119ml of Optiray 320 was administered intravenously. COMPARISON: No relevant prior studies available. FINDINGS: Limitations: None. CHEST: Lungs and pleural spaces: Small layering left pleural effusion. No consolidation. No pneumothorax. Heart: Cardiomegaly. No right heart strain. Small pericardial effusion noted. Cardiomegaly and trace pericardial effusion. Mediastinum: No abnormality noted. Thyroid: No abnormality noted. ABDOMEN: Liver: No abnormality noted. Gallbladder and bile ducts: Cholecystectomy. No ductal dilation or stone noted. Pancreas: Homogeneous enhancement. No mass, inflammation or ductal dilation. Spleen: There is grade 3 splenic laceration with subcapsular and perisplenic hematoma. No visible active extravasation. Adrenals: No significant abnormality noted. Kidneys and ureters: There is a 7 mm indeterminate hypodense nodule in the anterior cortex of the left renal midpole. Right kidney appears normal. There is homogeneous renal enhancement. Stomach and bowel: No distension or mucosal thickening. No inflammation noted. PELVIS: Appendix: No findings to suggest acute appendicitis. Bladder: No filling defects to suggest mass or large stone. No inflammation. Reproductive: No significant abnormality noted. CHEST, ABDOMEN and PELVIS: Intraperitoneal space: There is moderate hemoperitoneum. No free air. There is a small amount of hemoperitoneum around the liver which otherwise appears normal. Retroperitoneal space: No abnormality noted. No fluid collection. Bones/joints: No acute changes. Soft tissues: No significant abnormality noted. Vasculature: No abnormality noted. No aortic aneurysm. Lymph nodes: There are shotty mediastinal nodes measuring up to 1 cm. Mild atelectasis left base. Tubes, lines and devices: There is a spinal stimulator terminating at the mid thoracic level. IMPRESSION: 1. Grade 3 splenic laceration with moderate subcapsular and perisplenic hematoma and hemoperitoneum. 2. Indeterminant 7 mm hypodensity in the left kidney too small to characterize likely benign. No further assessment required. 3. Trace left pleural effusion. No traumatic abnormality in the thorax.
[2025-01-22 10:55] LABS: Troponin I High Sensitivity 2.4 pg/ml (0-20)
[2025-01-22] MEDS: FAMOTIDINE 20MG IV PUSH 20 MG/5 ML SYR IV STA (11:31)
[2025-01-22 13:07] LABS: Hematocrit (blood only) 30.3 % (42.0-52.0); Hemoglobin 10.3 g/dl (14.0-18.0)
[2025-01-22 17:50] LABS: Hematocrit (blood only) 30.7 % (42.0-52.0); Hemoglobin 10.3 g/dl (14.0-18.0)
--- NOTE | 2025-01-22 23:21 | Electrocardiogram Report ---
Test Reason : Blood Pressure : */* mmHG Vent. Rate : 93 BPM Atrial Rate : 93 BPM P-R Int : 144 ms QRS Dur : 96 ms QT Int : 378 ms P-R-T Axes : 26 -19 30 degrees QTcB Int : 469 ms Normal sinus rhythm Poor R wave progression, consider anterior MO vs. lead placement vs. LVH When compared with ECG of 16-Sep-2021 06:51, Artifact has improved Confirmed by Zion Mathis ([id number]) on 01/22/2025 11:21:17 PM Referred By: REFERRED SELF Confirmed By: Zion Mathis
[2025-01-23 06:07] LABS: Basophils # (auto) 0.04 K/uL (0.00-0.20); Basophils % (auto) 0.4 %; Eosinophils # (auto) 0.29 K/uL (0.00-0.50); Eosinophils % (auto) 2.7 %; Hematocrit (blood only) 29.5 % (42.0-52.0); Immature Granulocytes # (auto) 0.07 K/uL (0.01-0.20); Immature Granulocytes % (auto) 0.7 %; Lymphocytes # (auto) 1.64 K/uL (1.20-3.40); Lymphocytes % (auto) 15.4 %; Mean Corpuscular Hgb Conc 33.9 g/dL (32.0-36.0); Mean Corpuscular Volume 88.6 fL (80.0-100.0); Mean Platelet Volume 10.4 fL (9.4-12.4); Monocytes # (auto) 0.98 K/uL (0.11-0.59); Monocytes % (auto) 9.2 %; Neutrophils # (auto) 7.62 K/uL (1.40-6.50); Neutrophils % (auto) 71.6 %; Platelet Count 212 K/uL (130-400); RDW Coefficient of Variation 13.1 % (11.5-14.5); RDW Standard Deviation 42.5 fL (36.4-46.3); Red Blood Count 3.33 M/uL (4.70-6.10); White Blood Count 10.64 K/ul (4.8-10.8)
[2025-01-23 06:29] LABS: Calcium 8.9 mg/dl (8.6-10.3); Potassium 3.8 mmol/L (3.5-5.1)
--- NOTE | 2025-01-23 12:06 | Surgery Progress Note ---
Date of Service January 23, 2025 Assessment & Plan (1) Splenic laceration: Plan: H&H stable. Okay from my standpoint for discharge. Discussed using extreme caution to avoid additional trauma to the upper abdomen. Follow-up with Dr. Anaya in 1 to 2-week (2) Diabetes mellitus, type 2: Admission and Anticipated Discharge Date Admission Date: January 21, 2025 Subjective Patient seen. Feeling okay. Still quite tender over the left rib cage. No new symptoms overnight Physical Exam Physical Exam: Alert no acute distress Abdomen is soft with left upper quadrant tenderness. No peritonitis Results & Data Vital Signs (Past 12 Hours) Vital Signs Temp Pulse Pulse Resp BP Pulse Ox O2 Del Method 01/23/25 11:36 37.2 C 86 16 134/74 93 Room Air 01/23/25 09:19 75 01/23/25 07:54 36.6 C 85 20 108/71 91 Room Air 01/23/25 02:56 37.3 C 81 18 108/65 91 Room Air, CPAP 01/23/25 02:30 80 18 92 PG Care Time/CCT Total # of Minutes Spent Total Time Spent with Patient: Total time spent is greater than 50% in coordination of care (as documented) at patient's floor/unit and/or counseling patient: Coding Level of Care Code 44730 SUB INP/OBS CARE 12/09MIN Diagnoses Splenic laceration S36.039A Diabetes mellitus, type 2 E11.9
--- NOTE | 2025-01-23 17:26 | Hospitalist Progress Note ---
Date of Service January 23, 2025 Assessment & Plan (1) Splenic laceration: (2) Diabetes mellitus, type 2: (3) Hypertension: (4) GERD (gastroesophageal reflux disease): (5) Hyperlipidemia: Plan Patient fell down stairs and and struck his left side on a banister on 01/18. Splenic laceration on imaging. Continued stay to trend H&H, monitor hemodynamic stability, and monitor for progression/worsening of left-sided flank pain. Update: Patient's hemoglobin appears to have stabilized around 10.0. Assuming no setbacks overnight or downtrending hemoglobin the morning, hopeful discharge on 01/24. #Splenic laceration Patient fell down stairs and and struck his left side on a banister on 01/18 A/P CT revealed a grade 3 splenic laceration with moderate subcapsular perisplenic hematoma ED did reach out to [place] at the time, but given the age of patient's injury, it was recommended to monitor with repeat labs/pain control Patient reports his pain was controlled on IV Dilaudid However, will trial patient on p.o. pain medicine overnight prior to potenti al discharge Hgb appears to have stabilized around 10.0; recheck a.m. lab General Surgery consult appreciated Hopefully, patient's splenic bleed will heal on its own; however, if his hemoglobin downtrends or pain worsens he may require transfer to [facility] [place] Recommend bedrest Patient is hemodynamically stable on 01/23 #T2DM Last A1c at 5.3% on 12/14/2024 Hold Jardiance, semaglutide SSI with target BSG range 110-180mg/dL, CF 20, carb ratio 10 T2DM diet BSG ACHS Adjust regimen as needed Chronic stable conditions: #HTNamlodipine, atenolol; continue to hold losartanHCTZ #HLDrosuvastatin #GERDlansoprazole-> Protonix daily; IV famotidine PRN Disposition: MedSurg telemetry T2DM diet VTE PPx: Hold chemical DVT PPx in the setting of splenic laceration; SCDs Admission and Anticipated Discharge Date Admission Date: January 21, 2025 Subjective Edward is seen at the bedside and reports that his left-sided flank pain is 4/10 at present. Again, he characterizes as a dull "pressure-like" pain that comes in waves. It does radiate around his left flank from the lower back to his umbilicus. No radiation down the legs. No pain on the right side. He reports he has been okay when he gets up to use the bathroom. No falls or injuries to his abdomen. He did have 1 episode of 9/10 pain when he awoke from a nap, but reports that beside this episode, the IV pain medications have been managing his pain well. ROS: Patient endorses left-sided flank pain and headache (which patient attributes to the tension in his neck from sleeping funny). Patient denies fever, chills, night sweats, dizziness, lightheadedness when walking, falls, chest pain, chest palpitations, SOB, nausea, vomiting, diarrhea, melena, or numbness or tingling in the legs. Review of Systems Review of Systems: See HPI above Physical Exam Physical Exam: General: no acute distress; girlfriend at bedside; pleasant affect; non-toxic appearing; well-nourished; cooperative; SpO2 91% on RA HEENT: normocephalic, atraumatic; no scleral icterus; PERRLA; vision and hearing grossly intact Neck: supple; no lymphadenopathy; trachea midline Skin: warm, dry without signs of tenting; no cyanosis; no rashes, bruising, lesions, or erythema noted CV: chest wall NTP; RRR; S1/S2 normal; no murmurs/rubs/gallops; pulses intact and symmetric at radial, DP, and PT Lungs: no acute respiratory distress; symmetrical chest wall expansion; clear breath sounds across all lung benavides w/o adventitious sounds; no wheezing Left flank: No signs of active bleeding or bruising; left flank and LUQ/LLQ abdomen are TTP Spine: NTP ABD: Soft; BS present; no rebound/guarding; no distention MSK: no tics or fasciculations; no edema noted in the LEs b/l, nonerythematous Neuro: A&Ox3; normal mood and affect; fluent speech; no focal deficits; sensation intact and symmetric in the LEs bilaterally Results & Data Results & Data Vital Signs (Past 12 Hours) Vital Signs Temp Pulse Pulse Resp BP Pulse Ox O2 Del Method 01/23/25 16:09 37.2 C 77 16 114/52 L 91 Room Air 01/23/25 15:33 76 01/23/25 11:36 37.2 C 86 16 134/74 93 Room Air 01/23/25 09:19 75 01/23/25 07:54 36.6 C 85 20 108/71 91 Room Air Laboratory Results Abnormal lab results 01/22/25 01/22/25 01/23/25 Range/Units 17:29 20:06 05:32 RBC 3.33 L (4.70-6.10) M/uL Hgb 10.3 L 10.0 L (14.0-18.0) g/dl Hct 30.7 L 29.5 L (42.0-52.0) % Neut # (Auto) 7.62 H (1.40-6.50) K/uL [place] # (Auto) 0.98 H (0.11-0.59) K/uL Carbon Dioxide 33 H (21-32) mmol/L Anion Gap 2 L (3-11) BUN/Creatinine Ratio 21.0 H (10-20) Glucose 113 H (70-99(Fasting)) mg/dl POC Glucose 111 H (70-99) mg/dl 01/23/25 01/23/25 01/23/25 Range/Units 08:14 12:17 17:12 RBC (4.70-6.10) M/uL Hgb (14.0-18.0) g/dl Hct (42.0-52.0) % Neut # (Auto) (1.40-6.50) K/uL [place] # (Auto) (0.11-0.59) K/uL Carbon Dioxide (21-32) mmol/L Anion Gap (3-11) BUN/Creatinine Ratio (10-20) Glucose (70-99(Fasting)) mg/dl POC Glucose 162 H 165 H 133 H (70-99) mg/dl PG Care Time/CCT Total # of Minutes Spent Total Time Spent with Patient: Total time spent is greater than 50% in coordination of care (as documented) at patient's floor/unit and/or counseling patient: [place] [address] SUB INP/OBS CARE 2/35MIN Patient Type Established History Comprehensive Exam Comprehensive Medical Decision Making Moderate Complexity Diagnoses Splenic laceration S36.039A Diabetes mellitus, type 2 E11.9 Hypertension I10 GERD (gastroesophageal reflux disease) K21.9 Mixed hyperlipidemia E78.2 Hyperlipidemia type: mixed hyperlipidemia (5) Hyperlipidemia Hyperlipidemia type: mixed hyperlipidemia Qualified Code(s): E78.2 - Mixed hyperlipidemia
[2025-01-23] MEDS ORDERED: ACETAMINOPHEN 325 MG TAB PO PRN (17:29)
[2025-01-23] MEDS: oxyCODONE HCL IR 5 MG TAB (IMMEDIATE RELEASE) PO PRN (18:07)
[2025-01-24] MEDS: oxyCODONE HCL IR 5 MG TAB (IMMEDIATE RELEASE) PO PRN (00:09)
[2025-01-24 06:09] LABS: Basophils # (auto) 0.03 K/uL (0.00-0.20); Basophils % (auto) 0.3 %; Eosinophils # (auto) 0.24 K/uL (0.00-0.50); Hematocrit (blood only) 28.7 % (42.0-52.0); Hemoglobin 9.8 g/dl (14.0-18.0); Immature Granulocytes # (auto) 0.08 K/uL (0.01-0.20); Immature Granulocytes % (auto) 0.7 %; Lymphocytes # (auto) 1.57 K/uL (1.20-3.40); Lymphocytes % (auto) 13.3 %; Mean Corpuscular Hemoglobin 30.1 pg (25.0-34.0); Mean Corpuscular Hgb Conc 34.1 g/dL (32.0-36.0); Mean Platelet Volume 10.1 fL (9.4-12.4); Monocytes # (auto) 1.04 K/uL (0.11-0.59); Monocytes % (auto) 8.8 %; Neutrophils # (auto) 8.83 K/uL (1.40-6.50); Neutrophils % (auto) 74.9 %; Platelet Count 234 K/uL (130-400); RDW Standard Deviation 41.5 fL (36.4-46.3); Red Blood Count 3.26 M/uL (4.70-6.10); White Blood Count 11.79 K/ul (4.8-10.8)
[2025-01-24 06:32] LABS: Creatinine Clr Calc Pharmacy 199.8 ml/min; Potassium 3.7 mmol/L (3.5-5.1)
[2025-01-24 07:47] VITALS: RESP 16; TEMP 98.8; O2SAT 91
--- NOTE | 2025-01-24 07:47 | Discharge Summary ---
Discharge Summary Date of Service January 24, 2025 Principal Dx & Hospital Course #1 = Principal Diagnosis (1) Splenic laceration: (2) Diabetes mellitus, type 2: (3) Hypertension: (4) GERD (gastroesophageal reflux disease): (5) Hyperlipidemia: Plan 54-year-old male who fell down the stairs and struck his left side on a banister 01/18, was found to have splenic laceration and imaging. Was monitored with surgical consult while inpatient. Fortunately did well and H&H remained stable. Was cleared for discharge by surgery 01/23/2025. Was observed for 1 additional day, hemoglobin remained stable. Will have 1 to 2-week follow-up with general surgery To do as outpatient: Follow-up with general surgery in 1 to 2 weeks Continue multimodal pain control, Tylenol and may use lidocaine patches overlying area of injury. Short course of oxycodone 5 mg every 6 hours for no more than 1 week was prescribed at discharge. Hemoglobin stable at approximately 10 at time of discharge - Recheck CBC within ~1week Last note copied below for reference/completion #Splenic laceration Patient fell down stairs and and struck his left side on a banister on 01/18 A/P CT revealed a grade 3 splenic laceration with moderate subcapsular perisplenic hematoma ED did reach out to [place] at the time, but given the age of patient's injury, it was recommended to monitor with repeat labs/pain control Patient reports his pain was controlled on IV Dilaudid However, will trial patient on p.o. pain medicine overnight prior to potential discharge Hgb appears to have stabilized around 10.0; recheck a.m. lab General Surgery consult appreciated Hopefully, patient's splenic bleed will heal on its own; however, if his hemoglobin downtrends or pain worsens he may require transfer to [facility] [place] for IR Recommend bedrest Patient is hemodynamically stable on 01/23 #T2DM Last A1c at 5.3% on 12/14/2024 Hold Jardiance, semaglutide SSI with target BSG range 110-180mg/dL, CF 20, carb ratio 10 T2DM diet BSG ACHS Adjust regimen as needed Chronic stable conditions: #HTNamlodipine, atenolol; continue to hold losartanHCTZ #HLDrosuvastatin #GERDlansoprazole-> Protonix daily; IV famotidine PRN Disposition: MedSurg telemetry T2DM diet VTE PPx: Hold chemical DVT PPx in the setting of splenic laceration; SCDs Discharge Exam General: A&Ox3. NAD. Cooperative. HEENT: Atraumatic, normocephalic. Vision/hearin gintact Pulm: CTAB A&P. -wheezes, -rales, -rhonchi. Symmetrical chest rise. No increased work of breathing. No respiratory distress. Cardiac: RRR, -mrg. Radial pulses intact and symmetrical. Abdominal: L lower rib border TTP, no overlying hematoma/contusion. No retroperitoneal/flank bruising or hematoma present. Abd otherwise nontender, nondistended, soft. BS present. No rebound Discharge Plan Discharge Items Patient Disposition: Home - Self-Care Reason For Visit: SPLENIC LACERATION Discharge Diagnosis: Splenic laceration Activity: Resume your previous activity Non-emergency contact: Primary Care Provider Call non-emergency contact if: you have any medication questions, your symptoms worsen, your pain is not controlled and your rectal temperature is above 100.4 Follow-up/Referrals: Deandre Butts CRNP [Primary Care Provider] - 01/31/25 8:20 am Alfie Anaya MD [Physician] - Diet: Regular Addtl Attending Provider Instructions: You are seen in the hospital for a fall and a splenic laceration noted on CAT scan. Your CT scan showed a grade 3 splenic laceration with moderate subcapsular and perisplenic hematoma/hemoperitoneum. General surgery was consulted and followed your case, fortunately your blood levels remained stable and he did not require surgical intervention. You are recommended for bedrest for 5 days (01/21 - 01/26). As you are doing well with a stable hemoglobin of approximately 10 you recommended for discharge home. Please do not undergo any strenuous or vigorous activities, as while your hemoglobin is stable and your clinically improving it was recommended that you continue bed rest for another 2 days. Further injuries of the abdomen could result in severe or life-threatening bleeding. You should have repeat blood levels checked within one week by your PCP. An appointment is being scheduled for you with Dr. Butts on 01/31 at 8:20am. You have been prescribed multiple medications for pain control. You may take Tylenol 500 mg every 4-6 hours as needed for pain. Do not drink alcohol while using this medication. You should use this as your initial pain control medication. You been prescribed a lidocaine patch which you may apply overlying your area of soreness of your abdomen. You may leave this on for 12 hours in any 24-hour period, you must have 12 hours of time when the patch is removed every day. For pain not controlled with Tylenol/lidocaine you have been prescribed a short course of oxycodone. This is a narcotic medication with potentially addictive properties. Use this as sparingly as possible. You may take oxycodone 5 mg as needed up to every 6 hours for pain. Do not drink alcohol, drive, or operate heavy machinery while on this medication. If you develop any new or worsening symptoms including fever, chills, sweats, chest pain, chest pressure, difficulty breathing, uncontrolled nausea/vomiting, rash, wheezing, passing out or nearly passing out, bleeding, black/bloody bowel movements, or other new or concerning symptoms please call your primary care ph ysician, or call 911 for re-evaluation in the emergency department if you are very concerned. Pending Studies at Discharge: No Stand-Alone Forms: My [facility] [employer], Smoking Cessation Medications and DC Order Prescriptions: New lidocaine 5 % adhesive patch,medicated 1 patch topical DAILY Qty: 15 0RF Rx Instructions: leave on most painful area for up to 12 hrs oxycodone 5 mg tablet 5 mg PO Q6H PRN (Reason: pain) Qty: 10 0RF Continued baclofen 10 mg tablet 10 mg PO BID Qty: 60 2RF nystatin-triamcinolone 100,000-0.1 unit/g-% cream 1 applic TOPICAL BID PRN (Reason: Skin Irritation) Qty: 15 2RF duloxetine 60 mg capsule,delayed release(DR/EC) 60 mg PO QAM Qty: 90 3RF Jardiance 25 mg tablet 25 mg PO QPM Qty: 90 3RF lansoprazole 30 mg capsule,delayed release(DR/EC) 30 mg PO QAM Qty: 90 3RF duloxetine 30 mg capsule,delayed release(DR/EC) 30 mg PO QAM Qty: 90 3RF rosuvastatin 20 mg tablet 20 mg PO HS Qty: 90 2RF Ozempic 2 mg/dose (8 mg/3 mL) pen injector 2 mg subcut Q7D Qty: 3 5RF atenolol 100 mg tablet 100 mg PO QAM Qty: 90 1RF losartan-hydrochlorothiazide 50-12.5 mg tablet 1 tab PO QAM Qty: 90 1RF amlodipine 5 mg tablet 10 mg PO HS Qty: 90 3RF furosemide 80 mg tablet 80 mg PO QAM PRN (Reason: Edema) Qty: 90 0RF (DME) FreeStyle Renetta 3 Plus Sensor Device See Rx Instructions .ROUTE .MEDSUPPLY Qty: 2 11RF Rx Instructions: change sensor every 15 days potassium chloride [Klor-Con M20] 20 mEq tablet,ER particles/crystals 20 meq PO BID Qty: 180 1RF varenicline tartrate [Chantix Continuing Month Box] 1 mg tablet 1 mg PO BID Qty: 56 0RF pregabalin 225 mg capsule 225 mg PO BID Qty: 60 3RF bupropion HCl [Wellbutrin XL] 300 mg tablet extended release 24 hr 300 mg PO QAM Qty: 90 1RF (DME) OneTouch Verio test strips Strip See Rx Instructions .Route Rx Instructions: Test blood sugar once daily PRN- Has Renetta (DME) pen needle, diabetic [BD Ultra-Fine Short Pen Needle] 31 gauge x 5/16" needle See Rx Instructions .ROUTE .MEDSUPPLY Rx Instructions: Inject insulin PRN valacyclovir 1 gram tablet 1,000 mg PO TID PRN (Reason: Unknown) cyanocobalamin (vitamin B-12) 1,000 mcg/mL solution 1,000 mcg IM ONCE Qty: 1 0RF hydroxyzine HCl 25 mg tablet 25 mg PO QID PRN (Reason: Anxiety ) Qty: 90 2RF Discharge Orders: Discharge Order (Routine); Ordered 01/24/25 Ordered By: Aron Lindsay Admission Data Admit Date/Time: 01/21/25 19:14 Attending Provider: Aron Lindsay Admit Provider: Tariq Suazo Primary Care Provider: Deandre Butts Other Providers: Alfie Anaya; Tariq Suazo Hospital Stay Data Consultations 01/21/25 18:42 Consult General Surgery Stat ED Decision to Admit Stat Diagnostic Imagining Performed 01/21/25 16:23 CT Abd and Pelvis [CT abd pelvis IV con only] Stat CT chest diagnostic w con Stat Discharge Instructions Given to Patient (Per Discharging Provider) You are seen in the hospital for a fall and a splenic laceration noted on CAT scan. Your CT scan showed a grade 3 splenic laceration with moderate subcapsular and perisplenic hematoma/hemoperitoneum. General surgery was consulted and followed your case, fortunately your blood levels remained stable and he did not require surgical intervention. You are recommended for bedrest for 5 days (01/21 - 01/26). As you are doing well with a stable hemoglobin of approximately 10 you recommended for discharge home. Please do not undergo any strenuous or vigorous activities, as while your hemoglobin is stable and your clinically improving it was recommended that you continue bed rest for another 2 days. Further injuries of the abdomen could result in severe or life-threatening bleeding. You should have repeat blood levels checked within one week by your PCP. An appointment is being scheduled for you with Dr. Butts on 01/31 at 8:20am. You have been prescribed multiple medications for pain control. You may take Tylenol 500 mg every 4-6 hours as needed for pain. Do not drink alcohol while using this medication. You should use this as your initial pain control medication. You been prescribed a lidocaine patch which you may apply overlying your area of soreness of your abdomen. You may leave this on for 12 hours in any 24-hour period, you must have 12 hours of time when the patch is removed every day. For pain not controlled with Tylenol/lidocaine you have been prescribed a short course of oxycodone. This is a narcotic medication with potentially addictive properties. Use this as sparingly as possible. You may take oxycodone 5 mg as needed up to every 6 hours for pain. Do not drink alcohol, drive, or operate heavy machinery while on this medication. If you develop any new or worsening symptoms including fever, chills, sweats, chest pain, chest pressure, difficulty breathing, uncontrolled nausea/vomiting, rash, wheezing, passing out or nearly passing out, bleeding, black/bloody bowel movements, or other new or concerning symptoms please call your primary care physician, or call 911 for re-evaluation in the emergency department if you are very concerned. Total Time Total Time Spent Total Time Spent (In Minutes): Time spend day of discharge 35 minutes including direct patient care, documentation, review of labs and images, and coordination of care. Coding Level of Care Code 67039 INP/OBS DISCH >30 MIN Diagnoses Splenic laceration S36.039A Diabetes mellitus, type 2 E11.9 Hypertension I10 GERD (gastroesophageal reflux disease) K21.9 Mixed hyperlipidemia E78.2 Hyperlipidemia type: mixed hyperlipidemia
[2025-01-24 10:47] VITALS: BP 118/71; PULSE 82
== END 2025-01-24 11:00 | disposition home or self-care (01) | DRG 816 ==
LOC: SUATTDRO → ED 15:18 → SUATTDRO 19:14 → EDINP 19:14 → 2W 21:19

== ENCOUNTER 2025-01-31 21:43 | Observation (INO) ==
--- NOTE | 2025-01-31 22:07 | Emergency Department Note ---
History of Present Illness General Chief complaint: Back Injury/Pain Stated complaint: BACK PAIN FROM RUPTURED SPLEEN Time Seen by Provider: 01/31/25 21:52 History of Present Illness Maximum Pain Intensity: 8 This is a 54-year-old male presenting to the emergency department for evaluation of left-sided abdominal pain for the past 1 hour. Patient was recently seen and evaluated in this facility for grade 3 splenic laceration that was treated conservatively. Patient was at home tonight eating dinner, when he dropped something, and went to pick it up. When he did he felt a popping sensation in his left side and new pain that he has not had since his initial injury. Patient rates the current discomfort an 8/10. No lightheadedness, dizziness, nausea, or vomiting. He has not taken anything [id number] for symptoms. Home Medications Medication Instructions Recorded Confirmed Type nystatin-triamcinolone 100,000 1 applic topical BID PRN Skin 12/29/23 02/01/25 Rx unit/g-0.1 % topical cream Irritation #15 grams blood sugar diagnostic (OneTouch 12/31/23 01/31/25 History Verio test strips) pen needle, diabetic 31 gauge x 12/31/23 01/31/25 History 5/16" (BD Ultra-Fine Short Pen Needle) duloxetine 60 mg capsule,delayed 60 mg PO QAM #90 caps 02/24/24 02/01/25 Rx release Jardiance 25 mg tablet 25 mg PO QPM #90 tabs 02/25/24 02/01/25 Rx (empagliflozin) lansoprazole 30 mg capsule,delayed 30 mg PO QAM #90 caps 03/27/24 02/01/25 Rx release valacyclovir 1 gram tablet 1,000 mg PO TID PRN Unknown 05/22/24 01/31/25 History duloxetine 30 mg capsule,delayed 30 mg PO QAM #90 caps 05/29/24 02/01/25 Rx release rosuvastatin 20 mg tablet 20 mg PO HS #90 tabs 07/12/24 02/01/25 Rx semaglutide 2 mg/dose (8 mg/3 mL) 2 mg (0.75 mL) subcut Q7D #3 mL 08/28/24 02/01/25 Rx subcutaneous pen injector (Ozempic) baclofen 10 mg tablet 10 mg PO BID #60 tabs 09/06/24 02/01/25 Rx atenolol 100 mg tablet 100 mg PO QAM #90 tabs 09/25/24 02/01/25 Rx losartan 50 mg-hydrochlorothiazide 1 tab PO QAM #90 tabs 09/29/24 02/01/25 Rx 12.5 mg tablet amlodipine 5 mg tablet 10 mg (2 x 5 mg) PO HS #90 tabs 10/03/24 02/01/25 Rx furosemide 80 mg tablet 80 mg PO QAM PRN Edema #90 tabs 10/31/24 02/01/25 Rx FreeStyle Renetta 3 Plus Sensor #2 ea 11/27/24 01/31/25 Rx (blood-glucose sensor) hydroxyzine HCl 25 mg tablet 25 mg PO QID PRN Anxiety #90 tabs 12/06/24 02/01/25 Rx potassium chloride 20 mEq 20 meq PO BID #180 tabs 12/29/24 02/01/25 Rx tablet,extended release(part/cryst) (Klor-Con M) bupropion HCl 300 mg 24 hr tablet, 300 mg PO QAM #90 tabs 01/15/25 02/01/25 Rx extended release (Wellbutrin XL) pregabalin 225 mg capsule 225 mg PO BID #60 caps 01/15/25 02/01/25 Rx CPAP Supplies #1 ea 01/31/25 01/31/25 Rx varenicline tartrate 1 mg tablet 1 mg PO BID #56 tabs 01/31/25 02/01/25 Rx (Chantix Continuing Month Box) Allergies Allergy/AdvReac Type Severity Reaction Status Date / Time erythromycin base Allergy Severe anaphylaxis Verified 12/22/24 13:59 gabapentin Allergy Unknown MUSCLE/SHOULDER Verified 12/22/24 13:59 ACHES Past Med/Surg History Problem List (Updated 02/01/25 @ 02:16 by Ashish Coy PA-C) Left flank pain (Acute) Fall from standing (Acute) Acute upper abdominal pain (Acute) Splenic laceration (Acute) Lumbar spondylosis Chronic back pain Lumbar stenosis Diabetes mellitus, type 2 Fatty liver disease, nonalcoholic GERD (gastroesophageal reflux disease) UNDER CONTROL Asthma hx-NO INHALERS Anxiety Hyperlipidemia (Chronic) Depression (Chronic) Lynn esophagus (Chronic ~11/2009) Diabetic peripheral neuropathy associated with type 2 diabetes mellitus (Chronic) Hypertension History of colon polyps (Chronic ~06/2017) 5 mm sigmoid serrated adenoma CAT[place]INA (obstructive sleep apnea) (Chronic) Tobacco abuse disorder (Chronic) Alcohol abuse (Chronic) 2 cases of beer per week. Vitamin D deficiency (Chronic) Proteinuria due to type 2 diabetes mellitus Personal history of diabetic foot ulcer Class 3 obesity Insomnia Spinal cord stimulator status Medical History Shingles Sebaceous cyst Lumbar radicular pain Resistant hypertension Chronic back pain greater than 3 months duration Hearing deficit L EAR Surgical History H/O excision of mass (06/09/23) 1 1/2 centimeter cyst was excised from the left shoulder and 8 mm nodule behind the right ear was excised Dr. Murdock in the office Difficult airway for intubation "NEEDS LIGHTED GLIDE SCOPE" Hx of elbow surgery L ULNAR NERVE H/O arthroscopy of right knee S/P insertion of spinal cord stimulator IN PLACE History of colonoscopy History of esophagogastroduodenoscopy (EGD) History of tooth extraction WISDOM TEETH S/P LASIK surgery of both eyes History of cholecystectomy Hx of left knee surgery Family History Father Family history of diabetes mellitus Prostate cancer Grandmother Family history of diabetes mellitus PATERNAL Family/Other Family history of diabetes mellitus PATERNAL AUNTS Family hx of colon cancer MATERNAL UNCLE Grandfather Family hx of colon cancer MATERNAL Myocardial infarction Denies family history of Ovarian cancer Breast cancer Colorectal cancer Social History Smoking Status: Current every day smoker Tobacco Type: Cigarettes Age Started Using Tobacco: 18; packs per day: 0.5; Cigarettes Per Day: 5-8 per day; Second Hand Exposure: No; Do You Dip or Chew Tobacco: No; Hx Alcohol Use: Yes Alcohol type: beer Alcohol Intake Frequency: 2-3 x/Week Alcohol Intake Frequency Comment: 6 pack 1x weekly Hx Substance Use: Yes Preferred Language: Icelandic Communication Ability: Effective Visual Impairment: No Limitations Hearing Ability: Hard of Hearing Client Service Administrator Required: No Beliefs That Will Affect Care: None marital status: Current Living Situation: Alone current occupational status: employed and disabled 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 How many Children do You have: 1 Feels Safe at Home: Yes Childhood Exposure to Second-Hand Smoke: Yes Diet: regular Diet Comment: regular caffeine: Yes during the past year weight has: remained stable Dental Care, Regularly: No Physical Activity Frequency: Does not Exercise Seatbelt Use: never Sunscreen Use: Yes Assistive Devices: Cane and CPAP Review of Systems A total of 10 systems reviewed and were otherwise negative Physical Exam Vital Signs Vital Signs - 24 hr 01/31/25 21:46 01/31/25 22:10 01/31/25 22:45 Temperature 36.2 C L Temperature Source Temporal Artery Scan Pulse Rate 91 H 81 Pulse Rate [Apical] 82 Pulse Rhythm [Apical] Regular Respiratory Rate 18 19 18 Respiratory Effort / Characteristics Non-Labored Spontaneous Respiratory Depth Normal Respiratory Pattern Regular Blood Pressure 151/92 H 152/81 H Blood Pressure [Right Arm] 140/74 Blood Pressure Mean 111 92 Blood Pressure Mean [Right Arm] 96 Pulse Oximetry 96 94 92 Oxygen Delivery Method Room Air Room Air Sepsis Recent Fever Within 48 Hours No Sepsis New/Unexplained Change in Mental Status No Sepsis Action Taken by Nursing No Action Required 01/31/25 22:55 01/31/25 23:00 01/31/25 23:15 Temperature Temperature Source Pulse Rate 75 80 79 Pulse Rate [Apical] Pulse Rhythm [Apical] Respiratory Rate 18 19 Respiratory Effort / Characteristics Respiratory Depth Respiratory Pattern Blood Pressure 154/86 H 146/89 H Blood Pressure [Right Arm] Blood Pressure Mean 121 114 Blood Pressure Mean [Right Arm] Pulse Oximetry 95 94 Oxygen Delivery Method Room Air Room Air Sepsis Recent Fever Within 48 Hours Sepsis New/Unexplained Change in Mental Status Sepsis Action Taken by Nursing 02/01/25 00:00 Temperature Temperature Source Pulse Rate Pulse Rate [Apical] 75 Pulse Rhythm [Apical] Regular Respiratory Rate 22 Respiratory Effort / Characteristics Non-Labored Spontaneous Respiratory Depth Normal Respiratory Pattern Regular Blood Pressure Blood Pressure [Right Arm] 130/71 Blood Pressure Mean Blood Pressure Mean [Right Arm] 90 Pulse Oximetry 91 Oxygen Delivery Method Room Air Sepsis Recent Fever Within 48 Hours Sepsis New/Unexplained Change in Mental Status Sepsis Action Taken by Nursing VITALS: Vitals are noted on the nurse's note and reviewed by myself. Vital signs stable. GENERAL: Well-developed, well-nourished, white male, who is in no acute distress and resting comfortably. Patient is cooperative with the examination. HEAD: Normocephalic atraumatic. NECK: Supple without nuchal rigidity. No lymphadenopathy. No thyromegaly. Cervical spine is nontender. HEART: Regular rate and rhythm without murmurs gallops or rubs. LUNGS: Clear to auscultation bilaterally without wheezes, rales or rhonchi. No retractions or accessory muscle use. ABDOMEN: Positive normal bowel sounds x 4. Soft, nontender, without masses or organomegaly. No guarding or rebound tenderness. MUSCULOSKELETAL: No muscle atrophy, erythema, or edema noted. Full range of motion in all extremities. Course Administered Medications Discontinued Medications Baclofen (Baclofen 10 Mg Tab) 10 mg PO NOW STA Stop: 02/01/25 00:46 Last Admin: 02/01/25 00:53 Dose: 10 mg Documented By: ZAK Hydromorphone HCl (Hydromorphone Inj 1 Mg/Ml Syringe) 1 mg IV NOW STA Stop: 01/31/25 21:57 Last Admin: 01/31/25 22:13 Dose: 1 mg Documented By: JOYA Hydromorphone HCl (Hydromorphone Inj 1 Mg/Ml Syringe) 1 mg IV NOW STA Stop: 02/01/25 00:46 Last Admin: 02/01/25 00:52 Dose: 1 mg Documented By: ZAK Sodium Chloride (Nss) 1,000 mls @ 999 mls/hr IV .Q1H1M ONE Stop: 01/31/25 22:56 Last Infusion: 02/01/25 00:05 Dose: Infused Documented By: Admin: 01/31/25 22:35 Dose: 999 mls/hr Documented By: JOYA Ioversol (Optiray 320 100ml) 93 ml IV ONCE ONE Stop: 01/31/25 22:30 Last Admin: 01/31/25 22:29 Dose: 93 ml Documented By: KOREY Ondansetron HCl (Ondansetron Inj 2 Mg/Ml 2 Ml Vial) 4 mg IV NOW STA Stop: 01/31/25 21:57 Last Admin: 01/31/25 22:13 Dose: 4 mg Documented By: JOYA Pregabalin (Pregabalin 75 Mg Cap) 225 mg PO NOW STA Stop: 02/01/25 00:47 Last Admin: 02/01/25 00:53 Dose: 225 mg Documented By: NRB Medical Decision Making Differential Diagnosis Differential diagnosis: Etiologies such as biliary colic, cholecystitis, hepatitis, pancreatitis, cardiac disease, pancreatitis, gastritis, peptic ulcer disease, appendicitis, cystitis, diverticulitis, mesenteric ischemia, inflammatory bowel disease, ileus, bowel obstruction, testicular/adnexal torsion, aortic pathology, shingles, as well as others were considered Laboratory Data 01/31/25 22:05 01/31/25 22:05 Lab Results 01/31/25 Range/Units 22:05 WBC 12.49 H (4.8-10.8) K/ul RBC 3.94 L (4.70-6.10) M/uL Hgb 11.4 L (14.0-18.0) g/dl Hct 34.3 L (42.0-52.0) % MCV 87.1 (80.0-100.0) fL MCH 28.9 (25.0-34.0) pg MCHC 33.2 (32.0-36.0) g/dL RDW Std Deviation 41.1 (36.4-46.3) fL RDW Coeff of Jese 13.1 (11.5-14.5) % Plt Count 507 H (130-400) K/uL MPV 9.3 L (9.4-12.4) fL Immature Gran % (Auto) 0.6 % Neut % (Auto) 69.2 % Lymph % (Auto) 17.8 % [place] % (Auto) 7.8 % Eos % (Auto) 4.2 % Baso % (Auto) 0.4 % Neut # (Auto) 8.65 H (1.40-6.50) K/uL Lymph # (Auto) 2.22 (1.20-3.40) K/uL [place] # (Auto) 0.98 H (0.11-0.59) K/uL Eos # (Auto) 0.52 H (0.00-0.50) K/uL Baso # (Auto) 0.05 (0.00-0.20) K/uL Immature Gran # (Auto) 0.07 (0.01-0.20) K/uL PT 11.2 (9.0-12.0) Seconds INR 1.0 (0.9-1.1) APTT 31 (21-31) Seconds PTT Ratio 1.2 Sodium 139 (136-145) mmol/L Potassium 3.8 (3.5-5.1) mmol/L Chloride 104 (98-107) mmol/L Carbon Dioxide 30 (21-32) mmol/L Anion Gap 5 (3-11) BUN 12 (6-23) mg/dl Creatinine 0.71 (0.6-1.4) mg/dl Est Cr Clr Drug Dosing 169.4 ml/min eGFR 110.39 BUN/Creatinine Ratio 16.9 (10-20) Glucose 122 H (70-99(Fasting)) mg/dl Calcium 9.7 (8.6-10.3) mg/dl Total Bilirubin 0.8 (0.2-1.0) mg/dl AST 18 (13-39) U/L ALT 24 (7-52) U/L Alkaline Phosphatase 167 H (34-104) U/L Total Protein 7.9 (6.0-8.3) gm/dl Albumin 4.3 (3.4-5.0) gm/dl Globulin 3.6 (2.5-4.0) gm/dl Albumin/Globulin Ratio 1.2 (0.9-2) Imaging Data Radiologist's Impression: Abdomen/Pelvis CT 01/31/25 21:53 Exam(s): CT ABDOMEN + PELVIS With Contrast IV Amt: 93 ml opti 320 EXAM: CT Abdomen and Pelvis With Intravenous Contrast CLINICAL HISTORY: left abd pain. Recent splenic laceration.. TECHNIQUE: Axial computed tomography images of the abdomen and pelvis with intravenous contrast. CTDI is 9.5 28.14 mGy and DLP is 1563.68 mGy-cm. Automated exposure control was utilized for the study. A dose lowering technique was utilized adhering to the principles of ALARA. CONTRAST: Patient received 93 ml opti 320 of IV contrast COMPARISON: Abdomen and pelvis with contrast 01/21/2025 FINDINGS: Lung bases: Subsegmental changes involving the left lower lobe are presumed compressive atelectasis from the adjacent pleural effusion. Pleural space: Interval development of a left pleural effusion in the posterior costophrenic margin measuring up to 3.5 cm. The flow echodense. ABDOMEN: Liver: Unremarkable. No mass. Gallbladder and bile ducts: Cholecystectomy. No ductal dilation. Pancreas: Unremarkable. No mass. No ductal dilation. Spleen: The extensive subcapsular hematoma about the anterior and lateral aspect of the spleen is again noted. The overall size of the spleen is larger the prior examination, now measuring 13.8 x 16.9 cm from 10.9 x 16.2 cm at a comparable level on the prior examination. However, the subcapsular hemorrhagic products are less hyperattenuating, with the anterior component measuring 46 HU from 63 HU in the lateral component measuring 41 HU from 45 previously. Adrenals: Unremarkable. No mass. Kidneys and ureters: Unremarkable. No solid mass. No hydronephrosis. Stomach and bowel: The stomach is moderately distended with retained oral contents. No gastric mucosal thickening. No small bowel obstruction. Minimal stool burden. PELVIS: Appendix: No findings to suggest acute appendicitis. Bladder: Unremarkable. No mass. Reproductive: Unremarkable as visualized. ABDOMEN and PELVIS: Intraperitoneal space: The previously noted pneumoperitoneum in the left paracolic gutter has resolved. The volume of intraperitoneal fluid in the pelvis is smaller in volume. However, the fluid is more hyperdense, now measuring 70 HU from 45 previously. No loculated abscess. No pneumoperitoneum. Bones/joints: No acute fracture. No dislocation. Soft tissues: The curvilinear hypoattenuating laceration injury is able. The overlying soft tissues are otherwise unremarkable. Vasculature: Unremarkable. No abdominal aortic aneurysm. Lymph nodes: Unremarkable. No enlarged lymph nodes. Tubes, lines and devices: Spinal stimulator leads noted extending into the central canal at the T9-10 level. The spinal stimulator generator overlies the flank. IMPRESSION: 1. The extensive subcapsular hematoma about the anterior and lateral aspect of the spleen is again noted. The overall size of the spleen is larger the prior examination, now measuring 13.8 x 16.9 cm from 10.9 x 16. 2 cm at a comparable level on the prior examination. However, the subcapsular hemorrhagic products are less hyperattenuating, with the anterior component measuring 46 HU from 63 HU in the lateral component measuring 41 HU from 45 previously. This is consistent with interval evolution of the subcapsular hemorrhagic products. No evidence for interval new acute hemorrhagic products noted. The laceration injury inferiorly is stable. 2. The previously noted pneumoperitoneum in the left paracolic gutter has resolved. The volume of intraperitoneal fluid in the pelvis is smaller in volume. However, the fluid is more hyperdense, now measuring 70 HU from 45 previously. The more hyperdense components in the pelvis are most consistent with interval new hemorrhagic products. However, no active bleeding noted. 3. Interval development of a left pleural effusion in the posterior costophrenic margin measuring up to 3.5 cm. The flow echodense. Suspect a reactive process from the adjacent splenic findings which abuts the diaphragm. Electronically signed by: Deandre Carr MD 01/31/25 23:01 PM MDM Narrative Physical exam and history were performed. Nursing notes, EMR, and Medication List were personally reviewed. No social concerns were identified as barriers to patients care. History was provided by the Patient. Patient appears to have pain along his left side. He has a concerning recent history of splenic laceration. Patient was seen immediately upon arrival to his room and sent to CT scan for imaging with IV contrast. Patient's blood work is as above and was reviewed. He does not have a significant elevated white blood cell count, gross anemia, bandemia, or significant electrolyte imbalance. Transaminases are not diagnostic. CT scan of the abdomen and pelvis was reviewed by myself and radiology. He appears to have enlargement of his spleen from 10 days ago. There does not appear to be any new bleeding or active extravasation of contrast. There is a new left lower pleural effusion that is likely reactionary. Case was discussed with my attending physician, Dr. Alston. Case was also further discussed with on-call general surgery, Dr. Orona. The case was finally discussed with [facility] trauma surgery, Dr. Leon Celaya. At this time the findings on the CT scan do not seem to show any acute findings or rebleeding episodes. There does not seem to be anything to be done emergently regarding his findings. The patient does seem comfortable after being given IV Dilaudid here in the ER. Escalation of care was considered, and felt necessary. The patient has a known splenic injury that seems to be increased in size, while also without any acute findings. Patient likely will do well with monitoring and analgesia. Case was discussed with the on-call hospitalist who agreed to evaluate the patient here in the ER. Please see their dictation for further patient course, plan, and disposition. The chart was completed utilizing [employer] Voice Recognition Software. Grammatical errors, random word insertions, pronoun errors, and incomplete sentences are an occasional consequence of this system due to software limitations, ambient noise, and hardware issues. Any formal questions or concerns about the content, text, or information contained within the body of this dictation should be directly addressed to the provider for clarification. Impression & Plan Left flank pain, Splenic laceration Discharge Plan Visit Data Chief Complaint: Back Injury/Pain Stated Complaint: BACK PAIN FROM RUPTURED SPLEEN ED Provider: Gonzalo Alston ED Midlevel Provider: Ashish Coy Discharge Problem: Left flank pain, Splenic laceration Patient Disposition: Admitted As Inpatient Discharge Instructions Interventions: ED Discharge Assessment Last Done: 02/01/25 01:30
[2025-01-31] MEDS: ONDANSETRON INJ 2 MG/ML 2 ML VIAL IV STA (22:13)
[2025-01-31] MEDS: HYDROmorphone INJ 1 MG/ML SYRINGE IV STA (22:13)
[2025-01-31 22:21] LABS: Basophils # (auto) 0.05 K/uL (0.00-0.20); Basophils % (auto) 0.4 %; Eosinophils # (auto) 0.52 K/uL (0.00-0.50); Eosinophils % (auto) 4.2 %; Hematocrit (blood only) 34.3 % (42.0-52.0); Hemoglobin 11.4 g/dl (14.0-18.0); Immature Granulocytes # (auto) 0.07 K/uL (0.01-0.20); Immature Granulocytes % (auto) 0.6 %; Lymphocytes # (auto) 2.22 K/uL (1.20-3.40); Lymphocytes % (auto) 17.8 %; Mean Corpuscular Hemoglobin 28.9 pg (25.0-34.0); Mean Corpuscular Hgb Conc 33.2 g/dL (32.0-36.0); Mean Corpuscular Volume 87.1 fL (80.0-100.0); Mean Platelet Volume 9.3 fL (9.4-12.4); Monocytes # (auto) 0.98 K/uL (0.11-0.59); Monocytes % (auto) 7.8 %; Neutrophils # (auto) 8.65 K/uL (1.40-6.50); Neutrophils % (auto) 69.2 %; Platelet Count 507 K/uL (130-400); RDW Coefficient of Variation 13.1 % (11.5-14.5); RDW Standard Deviation 41.1 fL (36.4-46.3); Red Blood Count 3.94 M/uL (4.70-6.10); White Blood Count 12.49 K/ul (4.8-10.8)
[2025-01-31] MEDS: OPTIRAY 320 100ml IV ONE (22:29)
[2025-01-31] MEDS: SODIUM CHLORIDE 0.9% 1,000 ML IV ONE (22:35)
[2025-01-31 22:39] LABS: Albumin Globulin Ratio 1.2 (0.9-2); Albumin Level 4.3 gm/dl (3.4-5.0); BUN Creatinine Ratio 16.9 (10-20); Bilirubin,Total 0.8 mg/dl (0.2-1.0); Calcium 9.7 mg/dl (8.6-10.3); Creatinine Clr Calc Pharmacy 169.4 ml/min; Globulin 3.6 gm/dl (2.5-4.0); Potassium 3.8 mmol/L (3.5-5.1); Total Protein 7.9 gm/dl (6.0-8.3)
--- NOTE | 2025-01-31 23:03 | CT Scan Report ---
Exam(s): CT ABDOMEN + PELVIS With Contrast IV Amt: 93 ml opti 320 EXAM: CT Abdomen and Pelvis With Intravenous Contrast CLINICAL HISTORY: left abd pain. Recent splenic laceration.. TECHNIQUE: Axial computed tomography images of the abdomen and pelvis with intravenous contrast. CTDI is 9.5 28.14 mGy and DLP is 1563.68 mGy-cm. Automated exposure control was utilized for the study. A dose lowering technique was utilized adhering to the principles of ALARA. CONTRAST: Patient received 93 ml opti 320 of IV contrast COMPARISON: Abdomen and pelvis with contrast 01/21/2025 FINDINGS: Lung bases: Subsegmental changes involving the left lower lobe are presumed compressive atelectasis from the adjacent pleural effusion. Pleural space: Interval development of a left pleural effusion in the posterior costophrenic margin measuring up to 3.5 cm. The flow echodense. ABDOMEN: Liver: Unremarkable. No mass. Gallbladder and bile ducts: Cholecystectomy. No ductal dilation. Pancreas: Unremarkable. No mass. No ductal dilation. Spleen: The extensive subcapsular hematoma about the anterior and lateral aspect of the spleen is again noted. The overall size of the spleen is larger the prior examination, now measuring 13.8 x 16.9 cm from 10.9 x 16.2 cm at a comparable level on the prior examination. However, the subcapsular hemorrhagic products are less hyperattenuating, with the anterior component measuring 46 HU from 63 HU in the lateral component measuring 41 HU from 45 previously. Adrenals: Unremarkable. No mass. Kidneys and ureters: Unremarkable. No solid mass. No hydronephrosis. Stomach and bowel: The stomach is moderately distended with retained oral contents. No gastric mucosal thickening. No small bowel obstruction. Minimal stool burden. PELVIS: Appendix: No findings to suggest acute appendicitis. Bladder: Unremarkable. No mass. Reproductive: Unremarkable as visualized. ABDOMEN and PELVIS: Intraperitoneal space: The previously noted pneumoperitoneum in the left paracolic gutter has resolved. The volume of intraperitoneal fluid in the pelvis is smaller in volume. However, the fluid is more hyperdense, now measuring 70 HU from 45 previously. No loculated abscess. No pneumoperitoneum. Bones/joints: No acute fracture. No dislocation. Soft tissues: The curvilinear hypoattenuating laceration injury is able. The overlying soft tissues are otherwise unremarkable. Vasculature: Unremarkable. No abdominal aortic aneurysm. Lymph nodes: Unremarkable. No enlarged lymph nodes. Tubes, lines and devices: Spinal stimulator leads noted extending into the central canal at the T9-10 level. The spinal stimulator generator overlies the flank. IMPRESSION: 1. The extensive subcapsular hematoma about the anterior and lateral aspect of the spleen is again noted. The overall size of the spleen is larger the prior examination, now measuring 13.8 x 16.9 cm from 10.9 x 16. 2 cm at a comparable level on the prior examination. However, the subcapsular hemorrhagic products are less hyperattenuating, with the anterior component measuring 46 HU from 63 HU in the lateral component measuring 41 HU from 45 previously. This is consistent with interval evolution of the subcapsular hemorrhagic products. No evidence for interval new acute hemorrhagic products noted. The laceration injury inferiorly is stable. 2. The previously noted pneumoperitoneum in the left paracolic gutter has resolved. The volume of intraperitoneal fluid in the pelvis is smaller in volume. However, the fluid is more hyperdense, now measuring 70 HU from 45 previously. The more hyperdense components in the pelvis are most consistent with interval new hemorrhagic products. However, no active bleeding noted. 3. Interval development of a left pleural effusion in the posterior costophrenic margin measuring up to 3.5 cm. The flow echodense. Suspect a reactive process from the adjacent splenic findings which abuts the diaphragm. Electronically signed by: Deandre Carr MD 01/31/25 23:01 PM
[2025-01-31 23:44] LABS: Partial Thromboplastin Ratio 1.2; Partial Thromboplastin Time 31 Seconds (21-31); Prothrombin Time 11.2 Seconds (9.0-12.0)
[2025-02-01] MEDS: HYDROmorphone INJ 1 MG/ML SYRINGE IV STA (00:52)
[2025-02-01] MEDS: BACLOFEN 10 MG TAB PO STA (00:53)
[2025-02-01] MEDS: PREGABALIN 75 MG CAP PO STA (00:53)
[2025-02-01] MEDS ORDERED: POLYETHYLENE (MIRALAX) 17 GM PACK PO PRN (02:11)
[2025-02-01] MEDS ORDERED: ONDANSETRON INJ 2 MG/ML 2 ML VIAL IV PRN (02:11)
[2025-02-01] MEDS ORDERED: HYDROmorphone INJ 0.5 MG/0.5 ML SYR IV PRN (02:11)
[2025-02-01] MEDS ORDERED: CARBOHYDRATES FOR HYPOGLYCEMIA PO PRN (02:11)
[2025-02-01] MEDS ORDERED: GLUCOSE 40% GEL 15 GM TUBE PO PRN (02:11)
[2025-02-01] MEDS ORDERED: GLUCOSE 10 TAB/TUBE PO PRN (02:11)
[2025-02-01] MEDS ORDERED: DEXTROSE 50% 50 ML SYRINGE IV PRN (02:11)
[2025-02-01] MEDS ORDERED: DOCUSATE SODIUM 100 MG CAP PO PRN (02:11)
[2025-02-01] MEDS ORDERED: GLUCAGON FOR INJ 1 MG VIAL SQ PRN (02:11)
[2025-02-01] MEDS: HYDROmorphone INJ 0.5 MG/0.5 ML SYR IV PRN (04:42)
[2025-02-01] MEDS: ACETAMINOPHEN 325 MG TAB PO PRN (04:42)
--- NOTE | 2025-02-01 05:16 | History & Physical Report ---
Date of Service February 01, 2025 Assessment & Plan (1) Left flank pain: (2) Splenic laceration: (3) Diabetes mellitus, type 2: (4) GERD (gastroesophageal reflux disease): (5) Hyperlipidemia: (6) Depression: (7) CATALINA (obstructive sleep apnea): Plan 54-year-old male with history of diabetes, hypertension, hyperlipidemia, recent splenic laceration following a fall with abdominal trauma presenting with acute onset left-sided flank pain after bending down. Imaging as above concerning for possible new hemorrhagic products located in the pelvis as well as a new left- sided pleural effusion. No active bleeding appreciated. Patient is hemodynamically stable. Hemoglobin = 11.4, hematocrit = 34.3. Case has been discussed between the ER staff as well as general surgery and trauma surgery at [facility]. #Left flank pain etiology uncertain, concern for ongoing bleed from patient's recent splenic laceration. Admit to PCU Monitor H&H every 8 hours. Will Pain control with Tylenol as needed as well as Dilaudid IV as needed General Surgery consultation appreciated Should patient's pain become worse or he becomes hypotensive, tachycardic will reimage abdomen Continue baclofen and Lyrica #Splenic lacerationpatient sustained a fall 01/18/2025 with abdominal trauma resulting grade 3 splenic laceration. He was managed conservatively and did well. Presently hemoglobin hematocrit are near prior values. Imaging as above with possible concern for new blood products in the pelvis. No active bleeding identified Monitoring H&H General Surgery consult appreciated #Diabetesoverall well-controlled. Last hemoglobin A1c = 5.7 patient is on Jardiance and semaglutide at home Hold Jardiance and semaglutide Lantus 10 units twice daily with insulin sliding scale #Hyperlipidemia Continue Crestor #GERD Continue Protonix #Depression Continue Cymbalta and bupropion #CATALINA Continue CPAP at bedtime Admission and Anticipated Discharge Date Admission Date: February 01, 2025 History of Present Illness Chief Complaint: Left-sided flank pain Primary Care Provider: TWIN Ovalle Lenard Hodge is a 54-year-old male with history of hypertension, diabetes, hyperlipidemia, sleep apnea presenting with left sided flank pain. On 01/18/2025 patient fell against a banister and impacted his left side. He had progressive abdominal pain and came to [facility] 01/21/2025 where he was found to have a grade 3 splenic laceration with moderate hemoperitoneum and subcapsular hematoma. He was assessed by [facility] trauma team as well as general surgery and remained at [facility] for monitoring and conservative treatment. Patient did well and was ultimately discharged home on 01/24/2025. He reports he was taking care of himself, no lifting or straining and was getting ample rest at home. This evening he was eating dinner. He dropped his nap can and without thinking of it reached down to pick it up. He felt a "pop" on his left backside then developed acute severe pain with spasm which prompted him to come to the hospital. At present patient complaining of pain in his left side which is worse with movement. He has some shortness of breath as well as feeling of spasm otherwise denies chest pain, dizziness, nausea, vomiting or left upper quadrant abdominal. In the ER he is afebrile, hemodynamically stable ER course: IV Dilaudid Allergies Allergy/AdvReac Type Severity Reaction Status Date / Time erythromycin base Allergy Severe anaphylaxis Verified 12/22/24 13:59 gabapentin Allergy Unknown MUSCLE/SHOULDER Verified 12/22/24 13:59 ACHES Home Medications Medication Instructions Recorded Confirmed Type nystatin-triamcinolone 100,000 1 applic topical BID PRN Skin 12/29/23 02/01/25 Rx unit/g-0.1 % topical cream Irritation #15 grams blood sugar diagnostic (OneTouch 12/31/23 01/31/25 History Verio test strips) pen needle, diabetic 31 gauge x 12/31/23 01/31/25 History 516" (BD Ultra-Fine Short Pen Needle) duloxetine 60 mg capsule,delayed 60 mg PO QAM #90 caps 02/24/24 02/01/25 Rx release Jardiance 25 mg tablet 25 mg PO QPM #90 tabs 02/25/24 02/01/25 Rx (empagliflozin) lansoprazole 30 mg capsule,delayed 30 mg PO QAM #90 caps 03/27/24 02/01/25 Rx release valacyclovir 1 gram tablet 1,000 mg PO TID PRN Unknown 05/22/24 01/31/25 History duloxetine 30 mg capsule,delayed 30 mg PO QAM #90 caps 05/29/24 02/01/25 Rx release rosuvastatin 20 mg tablet 20 mg PO HS #90 tabs 07/12/24 02/01/25 Rx semaglutide 2 mg/dose (8 mg/3 mL) 2 mg (0.75 mL) subcut Q7D #3 mL 08/28/24 02/01/25 Rx subcutaneous pen injector (Ozempic) baclofen 10 mg tablet 10 mg PO BID #60 tabs 09/06/24 02/01/25 Rx atenolol 100 mg tablet 100 mg PO QAM #90 tabs 09/25/24 02/01/25 Rx losartan 50 mg-hydrochlorothiazide 1 tab PO QAM #90 tabs 09/29/24 02/01/25 Rx 12.5 mg tablet amlodipine 5 mg tablet 10 mg (2 x 5 mg) PO HS #90 tabs 10/03/24 02/01/25 Rx furosemide 80 mg tablet 80 mg PO QAM PRN Edema #90 tabs 10/31/24 02/01/25 Rx FreeStyle Renetta 3 Plus Sensor #2 ea 11/27/24 01/31/25 Rx (blood-glucose sensor) hydroxyzine HCl 25 mg tablet 25 mg PO QID PRN Anxiety #90 tabs 12/06/24 02/01/25 Rx potassium chloride 20 mEq 20 meq PO BID #180 tabs 12/29/24 02/01/25 Rx tablet,extended release(part/cryst) (Klor-Con M) bupropion HCl 300 mg 24 hr tablet, 300 mg PO QAM #90 tabs 01/15/25 02/01/25 Rx extended release (Wellbutrin XL) pregabalin 225 mg capsule 225 mg PO BID #60 caps 01/15/25 02/01/25 Rx CPAP Supplies #1 ea 01/31/25 01/31/25 Rx varenicline tartrate 1 mg tablet 1 mg PO BID #56 tabs 01/31/25 02/01/25 Rx (Chantix Continuing Month Box) Past Med/Surg History Problem List Left flank pain (Acute) Fall from standing (Acute) Acute upper abdominal pain (Acute) Splenic laceration (Acute) Lumbar spondylosis Chronic back pain Lumbar stenosis Diabetes mellitus, type 2 Fatty liver disease, nonalcoholic GERD (gastroesophageal reflux disease) UNDER CONTROL Asthma hx-NO INHALERS Anxiety Hyperlipidemia (Chronic) Depression (Chronic) Lynn esophagus (Chronic ~11/2009) Diabetic peripheral neuropathy associated with type 2 diabetes mellitus (Chronic) Hypertension History of colon polyps (Chronic ~06/2017) 5 mm sigmoid serrated adenoma CATALINA (obstructive sleep apnea) (Chronic) Tobacco abuse disorder (Chronic) Alcohol abuse (Chronic) 2 cases of beer per week. Vitamin D deficiency (Chronic) Proteinuria due to type 2 diabetes mellitus Personal history of diabetic foot ulcer Class 3 obesity Insomnia Spinal cord stimulator status Medical History Shingles Sebaceous cyst Lumbar radicular pain Resistant hypertension Chronic back pain greater than 3 months duration Hearing deficit L EAR Surgical History H/O excision of mass (06/09/23) 1 1/2 centimeter cyst was excised from the left shoulder and 8 mm nodule behind the right ear was excised Dr. Murdock in the office Difficult airway for intubation "NEEDS LIGHTED GLIDE SCOPE" Hx of elbow surgery L ULNAR NERVE H/O arthroscopy of right knee S/P insertion of spinal cord stimulator IN PLACE History of colonoscopy History of esophagogastroduodenoscopy (EGD) History of tooth extraction WISDOM TEETH S/P LASIK surgery of both eyes History of cholecystectomy Hx of left knee surgery Family History Father Family history of diabetes mellitus Prostate cancer Grandmother Family history of diabetes mellitus PATERNAL Family/Other Family history of diabetes mellitus PATERNAL AUNTS Family hx of colon cancer MATERNAL UNCLE Grandfather Family hx of colon cancer MATERNAL Myocardial infarction Denies family history of Ovarian cancer Breast cancer Colorectal cancer Social History Smoking Status: Current every day smoker Tobacco Type: Cigarettes Age Started Using Tobacco: 18; packs per day: 0.5; Cigarettes Per Day: 5-8 per day; Second Hand Exposure: Yes; Do You Dip or Chew Tobacco: No; Hx Alcohol Use: Yes Alcohol type: beer Alcohol Intake Frequency: 2-3 x/Week Alcohol Intake Frequency Comment: 6 pack 1x weekly Hx Substance Use: No Preferred Language: Kazakh Communication Ability: Effective Visual Impairment: No Limitations Hearing Ability: Hard of Hearing Roof Bolter Required: No Beliefs That Will Affect Care: None marital status: Current Living Situation: Alone current occupational status: employed and disabled 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 How many Children do You have: 1 Other Information That Helps Us Care for You: No Feels Safe at Home: Yes Safety Concerns: Feels Safe At This Time Childhood Exposure to Second-Hand Smoke: Yes Diet: regular Diet Comment: regular caffeine: Yes during the past year weight has: remained stable Dental Care, Regularly: No Physical Activity Frequency: Does not Exercise Seatbelt Use: never Sunscreen Use: Yes Assistive Devices: CPAP Review of Systems Review of Systems: All systems reviewed & are unremarkable except as noted in HPI & below Physical Exam Physical Exam: General: patient resting comfortably, NAD, non-toxic in appearance, AA&O x 4 Skin: warm, dry, intact, no rashes or lesions HEENT: NC/AT, PERRL, EOMI, anicteric sclera, conjunctiva without injection, external ear normal to inspection and nontender, nares patent, moist mucus membranes, dentition intact, no oropharyngeal lesions, neck supple, trachea midline, no LAD, no thyromegaly, no JVD Heart: +S1/S2, regular, no m/r/g Lungs: equal air entry bilaterally, no rales/rhonchi/wheezes Abd: +BS, soft, NT/ND, no masses/organomegaly/ascites Pain with palpation of left flank. No bruising Ext: warm, 2+ pulses in UE/LE bilaterally, no clubbing/cyanosis or edema Neuro: nonfocal, patient AA&O x 4, speech intact, no facial droop, moving all extremities on command with equal strength 5/5 Results & Data Results & Data Vital Signs (Past 12 Hours) Vital Signs Temp Pulse Pulse Resp BP BP Pulse Ox 02/01/25 02:41 83 02/01/25 02:18 02/01/25 02:18 36.7 C 73 20 136/75 91 02/01/25 02:11 36.7 C 73 22 136/75 93 02/01/25 01:30 74 18 130/74 91 02/01/25 01:30 79 18 130/74 92 02/01/25 01:00 74 22 118/76 92 02/01/25 00:00 75 22 130/71 91 01/31/25 23:15 79 19 146/89 H 94 01/31/25 23:00 80 18 154/86 H 95 01/31/25 22:55 75 01/31/25 22:45 81 18 152/81 H 92 01/31/25 22:10 82 19 140/74 94 01/31/25 21:46 36.2 C L 91 H 18 151/92 H 96 O2 Del Method 02/01/25 02:41 02/01/25 02:18 Room Air 02/01/25 02:18 Room Air 02/01/25 02:11 Room Air 02/01/25 01:30 Room Air 02/01/25 01:30 Room Air 02/01/25 01:00 Room Air 02/01/25 00:00 Room Air 01/31/25 23:15 Room Air 01/31/25 23:00 Room Air 01/31/25 22:55 01/31/25 22:45 Room Air 01/31/25 22:10 Room Air 01/31/25 21:46 Laboratory Results Laboratory Results WBC 12.49 K/ul (4.8-10.8) H 01/31/25 22:05 RBC 3.94 M/uL (4.70-6.10) L 01/31/25 22:05 Hgb 11.4 g/dl (14.0-18.0) L 01/31/25 22:05 Hct 34.3 % (42.0-52.0) L 01/31/25 22:05 MCV 87.1 fL (80.0-100.0) 01/31/25 22:05 MCH 28.9 pg (25.0-34.0) 01/31/25 22:05 MCHC 33.2 g/dL (32.0-36.0) 01/31/25 22:05 RDW Std Deviation 41.1 fL (36.4-46.3) 01/31/25 22:05 RDW Coeff of Jese 13.1 % (11.5-14.5) 01/31/25 22:05 Plt Count 507 K/uL (130-400) H 01/31/25 22:05 MPV 9.3 fL (9.4-12.4) L 01/31/25 22:05 Immature Gran % (Auto) 0.6 % 01/31/25 22:05 Neut % (Auto) 69.2 % 01/31/25 22:05 Lymph % (Auto) 17.8 % 01/31/25 22:05 [place] % (Auto) 7.8 % 01/31/25 22:05 Eos % (Auto) 4.2 % 01/31/25 22:05 Baso % (Auto) 0.4 % 01/31/25 22:05 Neut # (Auto) 8.65 K/uL (1.40-6.50) H 01/31/25 22:05 Lymph # (Auto) 2.22 K/uL (1.20-3.40) 01/31/25 22:05 [place] # (Auto) 0.98 K/uL (0.11-0.59) H 01/31/25 22:05 Eos # (Auto) 0.52 K/uL (0.00-0.50) H 01/31/25 22:05 Baso # (Auto) 0.05 K/uL (0.00-0.20) 01/31/25 22:05 Immature Gran # (Auto) 0.07 K/uL (0.01-0.20) 01/31/25 22:05 PT 11.2 Seconds (9.0-12.0) 01/31/25 22:05 INR 1.0 (0.9-1.1) 01/31/25 22:05 APTT 31 Seconds (21-31) 01/31/25 22:05 PTT Ratio 1.2 01/31/25 22:05 Sodium 139 mmol/L (136-145) 01/31/25 22:05 Potassium 3.8 mmol/L (3.5-5.1) 01/31/25 22:05 Chloride 104 mmol/L (98-107) 01/31/25 22:05 Carbon Dioxide 30 mmol/L (21-32) 01/31/25 22:05 Anion Gap 5 (3-11) 01/31/25 22:05 BUN 12 mg/dl (6-23) 01/31/25 22:05 Creatinine 0.71 mg/dl (0.6-1.4) 01/31/25 22:05 Est Cr Clr Drug Dosing 169.4 ml/min 01/31/25 22:05 eGFR 110.39 01/31/25 22:05 BUN/Creatinine Ratio 16.9 (10-20) 01/31/25 22:05 Glucose 122 mg/dl (70-99(Fasting)) H 01/31/25 22:05 Calcium 9.7 mg/dl (8.6-10.3) 01/31/25 22:05 Total Bilirubin 0.8 mg/dl (0.2-1.0) 01/31/25 22:05 AST 18 U/L (13-39) 01/31/25 22:05 ALT 24 U/L (7-52) 01/31/25 22:05 Alkaline Phosphatase 167 U/L (34-104) H 01/31/25 22:05 Total Protein 7.9 gm/dl (6.0-8.3) 01/31/25 22:05 Albumin 4.3 gm/dl (3.4-5.0) 01/31/25 22:05 Globulin 3.6 gm/dl (2.5-4.0) 01/31/25 22:05 Albumin/Globulin Ratio 1.2 (0.9-2) 01/31/25 22:05 Impressions Abdomen/Pelvis CT 01/31/25 21:53 Exam(s): CT ABDOMEN + PELVIS With Contrast IV Amt: 93 ml opti 320 EXAM: CT Abdomen and Pelvis With Intravenous Contrast CLINICAL HISTORY: left abd pain. Recent splenic laceration.. TECHNIQUE: Axial computed tomography images of the abdomen and pelvis with intravenous contrast. CTDI is 9.5 28.14 mGy and DLP is 1563.68 mGy-cm. Automated exposure control was utilized for the study. A dose lowering technique was utilized adhering to the principles of ALARA. CONTRAST: Patient received 93 ml opti 320 of IV contrast COMPARISON: Abdomen and pelvis with contrast 01/21/2025 FINDINGS: Lung bases: Subsegmental changes involving the left lower lobe are presumed compressive atelectasis from the adjacent pleural effusion. Pleural space: Interval development of a left pleural effusion in the posterior costophrenic margin measuring up to 3.5 cm. The flow echodense. ABDOMEN: Liver: Unremarkable. No mass. Gallbladder and bile ducts: Cholecystectomy. No ductal dilation. Pancreas: Unremarkable. No mass. No ductal dilation. Spleen: The extensive subcapsular hematoma about the anterior and lateral aspect of the spleen is again noted. The overall size of the spleen is larger the prior examination, now measuring 13.8 x 16.9 cm from 10.9 x 16.2 cm at a comparable level on the prior examination. However, the subcapsular hemorrhagic products are less hyperattenuating, with the anterior component measuring 46 HU from 63 HU in the lateral component measuring 41 HU from 45 previously. Adrenals: Unremarkable. No mass. Kidneys and ureters: Unremarkable. No solid mass. No hydronephrosis. Stomach and bowel: The stomach is moderately distended with retained oral contents. No gastric mucosal thickening. No small bowel obstruction. Minimal stool burden. PELVIS: Appendix: No findings to suggest acute appendicitis. Bladder: Unremarkable. No mass. Reproductive: Unremarkable as visualized. ABDOMEN and PELVIS: Intraperitoneal space: The previously noted pneumoperitoneum in the left paracolic gutter has resolved. The volume of intraperitoneal fluid in the pelvis is smaller in volume. However, the fluid is more hyperdense, now measuring 70 HU from 45 previously. No loculated abscess. No pneumoperitoneum. Bones/joints: No acute fracture. No dislocation. Soft tissues: The curvilinear hypoattenuating laceration injury is able. The overlying soft tissues are otherwise unremarkable. Vasculature: Unremarkable. No abdominal aortic aneurysm. Lymph nodes: Unremarkable. No enlarged lymph nodes. Tubes, lines and devices: Spinal stimulator leads noted extending into the central canal at the T9-10 level. The spinal stimulator generator overlies the flank. IMPRESSION: 1. The extensive subcapsular hematoma about the anterior and lateral aspect of the spleen is again noted. The overall size of the spleen is larger the prior examination, now measuring 13.8 x 16.9 cm from 10.9 x 16. 2 cm at a comparable level on the prior examination. However, the subcapsular hemorrhagic products are less hyperattenuating, with the anterior component measuring 46 HU from 63 HU in the lateral component measuring 41 HU from 45 previously. This is consistent with interval evolution of the subcapsular hemorrhagic products. No evidence for interval new acute hemorrhagic products noted. The laceration injury inferiorly is stable. 2. The previously noted pneumoperitoneum in the left paracolic gutter has resolved. The volume of intraperitoneal fluid in the pelvis is smaller in volume. However, the fluid is more hyperdense, now measuring 70 HU from 45 previously. The more hyperdense components in the pelvis are most consistent with interval new hemorrhagic products. However, no active bleeding noted. 3. Interval development of a left pleural effusion in the posterior costophrenic margin measuring up to 3.5 cm. The flow echodense. Suspect a reactive process from the adjacent splenic findings which abuts the diaphragm. Electronically signed by: Deandre Carr MD 01/31/25 23:01 PM PG Care Time/CCT Total # of Minutes Spent Total Time Spent with Patient: Total time spent is greater than 50% in coordination of care (as documented) at patient's floor/unit and/or counseling patient: Coding Level of Care Code 44342 INT INP/OBS CARE 3/75MIN Diagnoses Left flank pain R10.9 Splenic laceration S36.039A Diabetes mellitus, type 2 E11.9 GERD (gastroesophageal reflux disease) K21.9 Mixed hyperlipidemia E78.2 Hyperlipidemia type: mixed hyperlipidemia Depression F32.9 CATALINA (obstructive sleep apnea) G47.33 (5) Hyperlipidemia Hyperlipidemia type: mixed hyperlipidemia Qualified Code(s): E78.2 - Mixed hyperlipidemia
[2025-02-01 07:38] LABS: Hematocrit (blood only) 30.5 % (42.0-52.0); Hemoglobin 10.3 g/dl (14.0-18.0)
[2025-02-01] MEDS: INSULIN ASPART PER UNIT CHARGE SC SCH (09:11)
[2025-02-01] MEDS: LANTUS PER UNIT CHARGE SQ SCH (09:11)
[2025-02-01] MEDS: BACLOFEN 10 MG TAB PO SCH (09:22)
[2025-02-01] MEDS: DULoxetine HCL 30 MG CAP PO SCH (09:23)
[2025-02-01] MEDS: DULoxetine HCL 60 MG CAP PO SCH (09:23)
[2025-02-01] MEDS: buPROPion XL 300 MG TABCR PO SCH (09:24)
[2025-02-01] MEDS: PANTOprazole 40 MG TAB PO SCH (09:24)
[2025-02-01] MEDS: PREGABALIN 75 MG CAP PO SCH (09:32)
--- NOTE | 2025-02-01 10:11 | Surgery Consultation ---
Date of Consultation February 01, 2025 Assessment & Plan (1) Left flank pain: (2) Splenic laceration: Plan 54 yo male who was recently admitted here at [facility] for grade 3 splenic laceration and subcapsular hematoma from -01/24/25 and presented back to ED with sudden popping sensation in the left mid back/flank area with severe pain. Repeat CT scan showing no evidence of acute/active bleeding. H&H stable. Hemoglobin down to 10.3 from 11.4 but patient is s/p 1 liter of fluids. He is having no abdominal pain and abdominal examination is benign other than mild LUQ pain on palpation. No acute surgical intervention required. Possibly left back spasms and referred pain from the left pleural effusion. continue conservative/medical management. Continue to trend H&H. will follow along. Discussed with Dr. Orona who agrees with above. History of Present Illness Reason for Consultation: Splenic laceration and subcapsular hematoma Back pain Requesting Physician: Dotty No DO Attending Physician: Tariq Suazo MD History of Present Illness Lenard Hodge is a 54-year-old male with history of hypertension, diabetes, hyperlipidemia, sleep apnea presenting with left sided flank pain. On 01/18/2025 patient fell against a banister and impacted his left side. He had progressive abdominal pain and came to [facility] 01/21/2025 where he was found to have a grade 3 splenic laceration with moderate hemoperitoneum and subcapsular hematoma. Patient did well with conservative treatment and was ultimately discharged home on 01/24/2025. He reports he was doing well at home but he dropped his napkin and lifted his left leg up and He felt a "pop" on his left backside then developed acute severe pain with spasm which prompted him to come to the hospital. Repeat ct scan showing no active bleeding but larger spleen with density of the subcapsular blood less consistent with resolving supcapsular hematoma. There is some blood in pelvis which is new compared to prior but no signs of active bleeding. He states he is having no abdominal pain. Pain in the left mid back and some spasms when taking deep breath. Tolerating diet. No fevers, chills, dizziness, lightheadedness, moving bowels without difficulty, no blood in stools, no blood in urine. Allergies Allergy/AdvReac Type Severity Reaction Status Date / Time erythromycin base Allergy Severe anaphylaxis Verified 12/22/24 13:59 gabapentin Allergy Unknown MUSCLE/SHOULDER Verified 12/22/24 13:59 ACHES Home Medications Medication Instructions Recorded Confirmed Type nystatin-triamcinolone 100,000 1 applic topical BID PRN Skin 12/29/23 02/01/25 Rx unit/g-0.1 % topical cream Irritation #15 grams blood sugar diagnostic (OneTouch 12/31/23 01/31/25 History Verio test strips) pen needle, diabetic 31 gauge x 12/31/23 01/31/25 History 5/16" (BD Ultra-Fine Short Pen Needle) duloxetine 60 mg capsule,delayed 60 mg PO QAM #90 caps 02/24/24 02/01/25 Rx release Jardiance 25 mg tablet 25 mg PO QPM #90 tabs 02/25/24 02/01/25 Rx (empagliflozin) lansoprazole 30 mg capsule,delayed 30 mg PO QAM #90 caps 03/27/24 02/01/25 Rx release valacyclovir 1 gram tablet 1,000 mg PO TID PRN Unknown 05/22/24 01/31/25 History duloxetine 30 mg capsule,delayed 30 mg PO QAM #90 caps 05/29/24 02/01/25 Rx release rosuvastatin 20 mg tablet 20 mg PO HS #90 tabs 07/12/24 02/01/25 Rx semaglutide 2 mg/dose (8 mg/3 mL) 2 mg (0.75 mL) subcut Q7D #3 mL 08/28/24 02/01/25 Rx subcutaneous pen injector (Ozempic) baclofen 10 mg tablet 10 mg PO BID #60 tabs 09/06/24 02/01/25 Rx atenolol 100 mg tablet 100 mg PO QAM #90 tabs 09/25/24 02/01/25 Rx losartan 50 mg-hydrochlorothiazide 1 tab PO QAM #90 tabs 09/29/24 02/01/25 Rx 12.5 mg tablet amlodipine 5 mg tablet 10 mg (2 x 5 mg) PO HS #90 tabs 10/03/24 02/01/25 Rx furosemide 80 mg tablet 80 mg PO QAM PRN Edema #90 tabs 10/31/24 02/01/25 Rx FreeStyle Renetta 3 Plus Sensor #2 ea 11/27/24 01/31/25 Rx (blood-glucose sensor) hydroxyzine HCl 25 mg tablet 25 mg PO QID PRN Anxiety #90 tabs 12/06/24 02/01/25 Rx potassium chloride 20 mEq 20 meq PO BID #180 tabs 12/29/24 02/01/25 Rx tablet,extended release(part/cryst) (Klor-Con M) bupropion HCl 300 mg 24 hr tablet, 300 mg PO QAM #90 tabs 01/15/25 02/01/25 Rx extended release (Wellbutrin XL) pregabalin 225 mg capsule 225 mg PO BID #60 caps 01/15/25 02/01/25 Rx CPAP Supplies #1 ea 01/31/25 01/31/25 Rx varenicline tartrate 1 mg tablet 1 mg PO BID #56 tabs 01/31/25 02/01/25 Rx (Chantix Continuing Month Box) Patient History Medical History Shingles Sebaceous cyst Lumbar radicular pain Resistant hypertension Chronic back pain greater than 3 months duration Hearing deficit L EAR Surgical History H/O excision of mass (06/09/23) 1 1/2 centimeter cyst was excised from the left shoulder and 8 mm nodule behind the right ear was excised Dr. Murdock in the office Difficult airway for intubation "NEEDS LIGHTED GLIDE SCOPE" Hx of elbow surgery L ULNAR NERVE H/O arthroscopy of right knee S/P insertion of spinal cord stimulator IN PLACE History of colonoscopy History of esophagogastroduodenoscopy (EGD) History of tooth extraction WISDOM TEETH S/P LASIK surgery of both eyes History of cholecystectomy Hx of left knee surgery Family History Father Family history of diabetes mellitus Prostate cancer Grandmother Family history of diabetes mellitus PATERNAL Family/Other Family history of diabetes mellitus PATERNAL AUNTS Family hx of colon cancer MATERNAL UNCLE Grandfather Family hx of colon cancer MATERNAL Myocardial infarction Denies family history of Ovarian cancer Breast cancer Colorectal cancer Social History Smoking Status: Current every day smoker Tobacco Type: Cigarettes Age Started Using Tobacco: 18; packs per day: 0.5; Cigarettes Per Day: 5-8 per day; Second Hand Exposure: Yes; Do You Dip or Chew Tobacco: No; Hx Alcohol Use: Yes Alcohol type: beer Alcohol Intake Frequency: 2-3 x/Week Alcohol Intake Frequency Comment: 6 pack 1x weekly Hx Substance Use: No Preferred Language: Estonian Communication Ability: Effective Visual Impairment: No Limitations Hearing Ability: Hard of Hearing Heel Shaver Required: No Beliefs That Will Affect Care: None marital status: Current Living Situation: Alone current occupational status: employed and disabled 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 How many Children do You have: 1 Other Information That Helps Us Care for You: No Feels Safe at Home: Yes Safety Concerns: Feels Safe At This Time Childhood Exposure to Second-Hand Smoke: Yes Diet: regular Diet Comment: regular caffeine: Yes during the past year weight has: remained stable Dental Care, Regularly: No Physical Activity Frequency: Does not Exercise Seatbelt Use: never Sunscreen Use: Yes Assistive Devices: CPAP Review of Systems Review of Systems: All systems reviewed & are unremarkable except as noted in HPI & below Physical Exam Constitutional: WD/WN, vitals as above + obese, cooperative and comfortable; no acute distress and not ill appearing Respiratory: normal respiratory effort; no respiratory distress, no labored breathing and no retractions Chest (Breasts): Additional Comments: There is no ecchymosis of the left lower anterior/posterior chest wall. There is some pinpoint tenderness of the left thoracic back region and the lower left anterior ribs Gastrointestinal (Abdomen): Inspection/Auscultation: abdomen normal to inspection; abdomen not distended and no abdominal wall ecchymosis Percussion/Palpation: + abdomen tender (very mild in LUQ) and abdomen soft; no guarding, abdomen not rigid and abdomen not firm Skin: no rashes, warm and dry Psychiatric: Orientation: alert and oriented x 3 Results & Data Vital Signs (Past 12 Hours) Vital Signs Temp Pulse Pulse Resp BP BP Pulse Ox 02/01/25 09:44 72 22 96 02/01/25 07:57 36.6 C 72 18 126/78 91 02/01/25 07:48 74 02/01/25 02:41 83 02/01/25 02:18 02/01/25 02:18 36.7 C 73 20 136/75 91 02/01/25 02:11 36.7 C 73 22 136/75 93 02/01/25 01:30 74 18 130/74 91 02/01/25 01:30 79 18 130/74 92 02/01/25 01:00 74 22 118/76 92 02/01/25 00:00 75 22 130/71 91 01/31/25 23:15 79 19 146/89 H 94 01/31/25 23:00 80 18 154/86 H 95 01/31/25 22:55 75 01/31/25 22:45 81 18 152/81 H 92 O2 Del Method FiO2 02/01/25 09:44 21 02/01/25 07:57 Room Air 02/01/25 07:48 02/01/25 02:41 02/01/25 02:18 Room Air 02/01/25 02:18 Room Air 02/01/25 02:11 Room Air 02/01/25 01:30 Room Air 02/01/25 01:30 Room Air 02/01/25 01:00 Room Air 02/01/25 00:00 Room Air 01/31/25 23:15 Room Air 01/31/25 23:00 Room Air 01/31/25 22:55 01/31/25 22:45 Room Air Laboratory Results 02/01/25 02/01/25 01/31/25 Range/Units 07:31 07:09 22:05 WBC 12.49 H (4.8-10.8) K/ul RBC 3.94 L (4.70-6.10) M/uL Hgb 10.3 L 11.4 L (14.0-18.0) g/dl Hct 30.5 L 34.3 L (42.0-52.0) % MCV 87.1 (80.0-100.0) fL MCH 28.9 (25.0-34.0) pg MCHC 33.2 (32.0-36.0) g/dL RDW Std Deviation 41.1 (36.4-46.3) fL RDW Coeff of Jese 13.1 (11.5-14.5) % Plt Count 507 H (130-400) K/uL MPV 9.3 L (9.4-12.4) fL Immature Gran % (Auto) 0.6 % Neut % (Auto) 69.2 % Lymph % (Auto) 17.8 % [place] % (Auto) 7.8 % Eos % (Auto) 4.2 % Baso % (Auto) 0.4 % Neut # (Auto) 8.65 H (1.40-6.50) K/uL Lymph # (Auto) 2.22 (1.20-3.40) K/uL [place] # (Auto) 0.98 H (0.11-0.59) K/uL Eos # (Auto) 0.52 H (0.00-0.50) K/uL Baso # (Auto) 0.05 (0.00-0.20) K/uL Immature Gran # (Auto) 0.07 (0.01-0.20) K/uL PT 11.2 (9.0-12.0) Seconds INR 1.0 (0.9-1.1) APTT 31 (21-31) Seconds PTT Ratio 1.2 Sodium 139 (136-145) mmol/L Potassium 3.8 (3.5-5.1) mmol/L Chloride 104 (98-107) mmol/L Carbon Dioxide 30 (21-32) mmol/L Anion Gap 5 (3-11) BUN 12 (6-23) mg/dl Creatinine 0.71 (0.6-1.4) mg/dl Est Cr Clr Drug Dosing 169.4 ml/min eGFR 110.39 BUN/Creatinine Ratio 16.9 (10-20) Glucose 122 H (70-99(Fasting)) mg/dl POC Glucose 124 H (70-99) mg/dl Calcium 9.7 (8.6-10.3) mg/dl Total Bilirubin 0.8 (0.2-1.0) mg/dl AST 18 (13-39) U/L ALT 24 (7-52) U/L Alkaline Phosphatase 167 H (34-104) U/L Total Protein 7.9 (6.0-8.3) gm/dl Albumin 4.3 (3.4-5.0) gm/dl Globulin 3.6 (2.5-4.0) gm/dl Albumin/Globulin Ratio 1.2 (0.9-2) Diagnostic Findings Exam(s): CT ABDOMEN + PELVIS With Contrast IV Amt: 93 ml opti 320 EXAM: CT Abdomen and Pelvis With Intravenous Contrast CLINICAL HISTORY: left abd pain. Recent splenic laceration.. TECHNIQUE: Axial computed tomography images of the abdomen and pelvis with intravenous contrast. CTDI is 9.5 28.14 mGy and DLP is 1563.68 mGy-cm. Automated exposure control was utilized for the study. A dose lowering technique was utilized adhering to the principles of ALARA. CONTRAST: Patient received 93 ml opti 320 of IV contrast COMPARISON: Abdomen and pelvis with contrast 01/21/2025 FINDINGS: Lung bases: Subsegmental changes involving the left lower lobe are presumed compressive atelectasis from the adjacent pleural effusion. Pleural space: Interval development of a left pleural effusion in the posterior costophrenic margin measuring up to 3.5 cm. The flow echodense. ABDOMEN: Liver: Unremarkable. No mass. Gallbladder and bile ducts: Cholecystectomy. No ductal dilation. Pancreas: Unremarkable. No mass. No ductal dilation. Spleen: The extensive subcapsular hematoma about the anterior and lateral aspect of the spleen is again noted. The overall size of the spleen is larger the prior examination, now measuring 13.8 x 16.9 cm from 10.9 x 16.2 cm at a comparable level on the prior examination. However, the subcapsular hemorrhagic products are less hyperattenuating, with the anterior component measuring 46 HU from 63 HU in the lateral component measuring 41 HU from 45 previously. Adrenals: Unremarkable. No mass. Kidneys and ureters: Unremarkable. No solid mass. No hydronephrosis. Stomach and bowel: The stomach is moderately distended with retained oral contents. No gastric mucosal thickening. No small bowel obstruction. Minimal stool burden. PELVIS: Appendix: No findings to suggest acute appendicitis. Bladder: Unremarkable. No mass. Reproductive: Unremarkable as visualized. ABDOMEN and PELVIS: Intraperitoneal space: The previously noted pneumoperitoneum in the left paracolic gutter has resolved. The volume of intraperitoneal fluid in the pelvis is smaller in volume. However, the fluid is more hyperdense, now measuring 70 HU from 45 previously. No loculated abscess. No pneumoperitoneum. Bones/joints: No acute fracture. No dislocation. Soft tissues: The curvilinear hypoattenuating laceration injury is able. The overlying soft tissues are otherwise unremarkable. Vasculature: Unremarkable. No abdominal aortic aneurysm. Lymph nodes: Unremarkable. No enlarged lymph nodes. Tubes, lines and devices: Spinal stimulator leads noted extending into the central canal at the T9-10 level. The spinal stimulator generator overlies the flank. IMPRESSION: 1. The extensive subcapsular hematoma about the anterior and lateral aspect of the spleen is again noted. The overall size of the spleen is larger the prior examination, now measuring 13.8 x 16.9 cm from 10.9 x 16. 2 cm at a comparable level on the prior examination. However, the subcapsular hemorrhagic products are less hyperattenuating, with the anterior component measuring 46 HU from 63 HU in the lateral component measuring 41 HU from 45 previously. This is consistent with interval evolution of the subcapsular hemorrhagic products. No evidence for interval new acute hemorrhagic products noted. The laceration injury inferiorly is stable. 2. The previously noted pneumoperitoneum in the left paracolic gutter has resolved. The volume of intraperitoneal fluid in the pelvis is smaller in volume. However, the fluid is more hyperdense, now measuring 70 HU from 45 previously. The more hyperdense components in the pelvis are most consistent with interval new hemorrhagic products. However, no active bleeding noted. 3. Interval development of a left pleural effusion in the posterior costophrenic margin measuring up to 3.5 cm. The flow echodense. Suspect a reactive process from the adjacent splenic findings which abuts the diaphragm. I PERSONALLY REVIEWED CT SCAN IMAGES AND CONCUR WITH ABOVE FINDINGS
[2025-02-01 13:05] LABS: Hematocrit (blood only) 31.7 % (42.0-52.0); Hemoglobin 10.6 g/dl (14.0-18.0)
--- NOTE | 2025-02-01 13:25 | Hospitalist Progress Note ---
Date of Service February 01, 2025 Assessment & Plan (1) Left flank pain: Plan: Present on admission. Now resolved. Pain control measures (2) Splenic laceration: Plan: Occurred January 18 when he suffered a mechanical fall. He has a grade [address] scan reveals no significant changes although the spleen has increased somewhat in size. General surgery consultation noted. No indication for splenectomy at this time (3) Diabetes mellitus, type 2: Plan: ADA diet. Basal insulin started on admission has been discontinued. Sliding scale coverage if needed (4) GERD (gastroesophageal reflux disease): Plan: Stable. Continue PPI therapy (5) Hyperlipidemia: Plan: Stable. Continue current medical management (6) Depression: Plan: Stable. Continue current medical management Plan Hopeful discharge to home tomorrow, February 02 Admission and Anticipated Discharge Date Admission Date: February 01, 2025 Subjective Alert and oriented. No distress. Hemoglobin is drifted down slightly to 10.3 but this could be due to IV fluids. General surgery consultation noted. No splenectomy needed at this time. He was placed on insulin on admission which has been discontinued. Glucose 122. Continue ADA diet and sliding scale coverage as needed. Hopefully he can go home tomorrow, February 02, with as needed oxycodone for pain control measures Review of Systems 2 Review of Systems: Constitutionalno fever or chills ENTno blurred vision, no double vision, no epistaxis, no sore throat Respiratoryno cough, no wheezing, no shortness of breath Cardiacno palpitations, no chest pain, no syncope Cy nausea, vomiting, diarrhea, melena, hematochezia. Recent exacerbation of left sided abdominal pain has resolved GUno urinary retention, no urinary incontinence, no dysuria, no hematuria Musculoskeletalno joint pain, no muscle tenderness Skinno bruising, no rashes, no pruritus Neurono isolated weakness, no paresthesia, no weakness Psychno depression, no anxiety Physical Exam 2 Physical Exam: General-alert and oriented x3, no fever, no chills HEENT-head atraumatic and normocephalic, pupils equal and reactive to light, extraocular muscles intact Neck-no lymphadenopathy or thyromegaly, trachea midline Chest-clear to auscultation. No rales, wheezing or rhonchi Cardiac-regular rate and rhythm, normal S1 and S2 Abdomen-normal bowel sounds, no hepatosplenomegaly. Tender to palpation in the left upper quadrant area Extremities-no cyanosis, clubbing, or edema Neuro-cranial nerves II through XII intact, motor and sensory function within normal limits, strength symmetrical, no focal deficits Psych-normal affect, normal mood Results & Data Results & Data Vital Signs (Past 12 Hours) Vital Signs Temp Pulse Pulse Resp BP BP Pulse Ox 02/01/25 11:41 36.6 C 65 18 150/74 H 94 02/01/25 09:44 72 22 96 02/01/25 07:57 36.6 C 72 18 126/78 91 02/01/25 07:48 74 02/01/25 02:41 83 02/01/25 02:18 02/01/25 02:18 36.7 C 73 20 136/75 91 02/01/25 02:11 36.7 C 73 22 136/75 93 02/01/25 01:30 74 18 130/74 91 02/01/25 01:30 79 18 130/74 92 O2 Del Method FiO2 02/01/25 11:41 Room Air 02/01/25 09:44 21 02/01/25 07:57 Room Air 02/01/25 07:48 02/01/25 02:41 02/01/25 02:18 Room Air 02/01/25 02:18 Room Air 02/01/25 02:11 Room Air 02/01/25 01:30 Room Air 02/01/25 01:30 Room Air Laboratory Results 02/01/25 12:41 01/31/25 22:05 PG Care Time/CCT Total # of Minutes Spent Total Time Spent with Patient: Total time spent is greater than 50% in coordination of care (as documented) at patient's floor/unit and/or counseling patient: Coding Level of Care Code 01335 SUB INP/OBS CARE 3/50MIN Diagnoses Left flank pain R10.9 Splenic laceration S36.039A Diabetes mellitus, type 2 E11.9 GERD (gastroesophageal reflux disease) K21.9 Mixed hyperlipidemia E78.2 Hyperlipidemia type: mixed hyperlipidemia Depression F32.9 (5) Hyperlipidemia Hyperlipidemia type: mixed hyperlipidemia Qualified Code(s): E78.2 - Mixed hyperlipidemia
[2025-02-01] MEDS: hydrOXYzine HCl 25 MG TAB PO PRN (20:06)
[2025-02-01] MEDS: ROSUVASTATIN CALCIUM 20 MG TAB PO SCH (20:07)
[2025-02-01 21:19] LABS: Hematocrit (blood only) 31.8 % (42.0-52.0); Hemoglobin 10.7 g/dl (14.0-18.0)
[2025-02-02 06:02] LABS: Basophils # (auto) 0.03 K/uL (0.00-0.20); Basophils % (auto) 0.3 %; Eosinophils # (auto) 0.39 K/uL (0.00-0.50); Eosinophils % (auto) 4.1 %; Hematocrit (blood only) 32.2 % (42.0-52.0); Hemoglobin 10.8 g/dl (14.0-18.0); Immature Granulocytes # (auto) 0.05 K/uL (0.01-0.20); Immature Granulocytes % (auto) 0.5 %; Lymphocytes # (auto) 1.67 K/uL (1.20-3.40); Lymphocytes % (auto) 17.6 %; Mean Corpuscular Hemoglobin 29.2 pg (25.0-34.0); Mean Corpuscular Hgb Conc 33.5 g/dL (32.0-36.0); Mean Platelet Volume 9.1 fL (9.4-12.4); Monocytes % (auto) 8.4 %; Neutrophils # (auto) 6.57 K/uL (1.40-6.50); Neutrophils % (auto) 69.1 %; Platelet Count 388 K/uL (130-400); RDW Standard Deviation 41.1 fL (36.4-46.3); White Blood Count 9.51 K/ul (4.8-10.8)
[2025-02-02 06:09] LABS: BUN Creatinine Ratio 20.5 (10-20); Calcium 8.8 mg/dl (8.6-10.3); Creatinine Clr Calc Pharmacy 271.1 ml/min; Potassium 3.2 mmol/L (3.5-5.1)
[2025-02-02 07:07] VITALS: BP 153/87; RESP 18; TEMP 98.2; O2SAT 93
[2025-02-02] MEDS: oxyCODONE HCL IR 5 MG TAB (IMMEDIATE RELEASE) PO STA ×2 (07:41→14:03)
--- NOTE | 2025-02-02 10:26 | Surgery Progress Note ---
Date of Service February 02, 2025 Assessment & Plan (1) Splenic laceration: (2) Left flank pain: Plan 54 yo male who was recently admitted here at [facility] for grade 3 splenic laceration and subcapsular hematoma from -01/24/25 and presented back to ED with sudden popping sensation in the left mid back/flank area with severe pain. Repeat CT scan showing no evidence of acute/active bleeding. H&H stable. Hemoglobin down to 10.3 from 11.4 but patient is s/p 1 liter of fluids. He is having no abdominal pain and abdominal examination is benign other than mild LUQ pain on palpation. No acute surgical intervention required. Possibly left back spasms and referred pain from the left pleural effusion. continue conservative/medical management. Trending H&H have been stable and slightly improved. No surgical issues. Recommend no heavy lifting on discharge for a few weeks. Our services signing off. Dr. Orona has seen and examined patient, agrees with above. Admission and Anticipated Discharge Date Admission Date: February 01, 2025 Subjective feeling good no abdominal pain back pain is improving tolerating diet without abdominal pain, nausea or vomiting Physical Exam Constitutional: WD/WN, vitals as above + obese, cooperative and comfortable; no acute distress and not ill appearing Respiratory: normal respiratory effort; no respiratory distress and no labored breathing Gastrointestinal (Abdomen): Inspection/Auscultation: abdomen normal to inspection; abdomen not distended Percussion/Palpation: abdomen soft; abdomen nontender, no guarding and abdomen not rigid Skin: no rashes, warm and dry Psychiatric: Orientation: alert and oriented x 3 Results & Data Vital Signs (Past 12 Hours) Vital Signs Temp Pulse Pulse Resp BP Pulse Ox O2 Del Method 02/02/25 07:30 74 02/02/25 07:06 36.8 C 69 18 153/87 H 93 CPAP 02/02/25 05:16 72 16 92 02/02/25 03:00 36.6 C 68 17 138/82 95 CPAP 02/01/25 23:00 36.8 C 71 16 134/82 93 CPAP Laboratory Results 02/02/25 02/02/25 02/01/25 Range/Units 07:07 05:32 20:44 WBC 9.51 (4.8-10.8) K/ul RBC 3.70 L (4.70-6.10) M/uL Hgb 10.8 L 10.7 L (14.0-18.0) g/dl Hct 32.2 L 31.8 L (42.0-52.0) % MCV 87.0 (80.0-100.0) fL MCH 29.2 (25.0-34.0) pg MCHC 33.5 (32.0-36.0) g/dL RDW Std Deviation 41.1 (36.4-46.3) fL RDW Coeff of Jese 13.0 (11.5-14.5) % Plt Count 388 (130-400) K/uL MPV 9.1 L (9.4-12.4) fL Immature Gran % (Auto) 0.5 % Neut % (Auto) 69.1 % Lymph % (Auto) 17.6 % [place] % (Auto) 8.4 % Eos % (Auto) 4.1 % Baso % (Auto) 0.3 % Neut # (Auto) 6.57 H (1.40-6.50) K/uL Lymph # (Auto) 1.67 (1.20-3.40) K/uL [place] # (Auto) 0.80 H (0.11-0.59) K/uL Eos # (Auto) 0.39 (0.00-0.50) K/uL Baso # (Auto) 0.03 (0.00-0.20) K/uL Immature Gran # (Auto) 0.05 (0.01-0.20) K/uL Sodium 138 (136-145) mmol/L Potassium 3.2 L (3.5-5.1) mmol/L Chloride 106 (98-107) mmol/L Carbon Dioxide 29 (21-32) mmol/L Anion Gap 3 (3-11) BUN 9 (6-23) mg/dl Creatinine 0.44 L (0.6-1.4) mg/dl Est Cr Clr Drug Dosing 271.1 ml/min eGFR 127.55 BUN/Creatinine Ratio 20.5 H (10-20) Glucose 106 H (70-99(Fasting)) mg/dl POC Glucose 114 H (70-99) mg/dl Calcium 8.8 (8.6-10.3) mg/dl 02/01/25 02/01/25 02/01/25 Range/Units 20:04 16:36 12:41 WBC (4.8-10.8) K/ul RBC (4.70-6.10) M/uL Hgb 10.6 L (14.0-18.0) g/dl Hct 31.7 L (42.0-52.0) % MCV (80.0-100.0) fL MCH (25.0-34.0) pg MCHC (32.0-36.0) g/dL RDW Std Deviation (36.4-46.3) fL RDW Coeff of Jese (11.5-14.5) % Plt Count (130-400) K/uL MPV (9.4-12.4) fL Immature Gran % (Auto) % Neut % (Auto) % Lymph % (Auto) % [place] % (Auto) % Eos % (Auto) % Baso % (Auto) % Neut # (Auto) (1.40-6.50) K/uL Lymph # (Auto) (1.20-3.40) K/uL [place] # (Auto) (0.11-0.59) K/uL Eos # (Auto) (0.00-0.50) K/uL Baso # (Auto) (0.00-0.20) K/uL Immature Gran # (Auto) (0.01-0.20) K/uL Sodium (136-145) mmol/L Potassium (3.5-5.1) mmol/L Chloride (98-107) mmol/L Carbon Dioxide (21-32) mmol/L Anion Gap (3-11) BUN (6-23) mg/dl Creatinine (0.6-1.4) mg/dl Est Cr Clr Drug Dosing ml/min eGFR BUN/Creatinine Ratio (10-20) Glucose (70-99(Fasting)) mg/dl POC Glucose 144 H 110 H (70-99) mg/dl Calcium (8.6-10.3) mg/dl 02/01/25 Range/Units 11:39 WBC (4.8-10.8) K/ul RBC (4.70-6.10) M/uL Hgb (14.0-18.0) g/dl Hct (42.0-52.0) % MCV (80.0-100.0) fL MCH (25.0-34.0) pg MCHC (32.0-36.0) g/dL RDW Std Deviation (36.4-46.3) fL RDW Coeff of Jese (11.5-14.5) % Plt Count (130-400) K/uL MPV (9.4-12.4) fL Immature Gran % (Auto) % Neut % (Auto) % Lymph % (Auto) % [place] % (Auto) % Eos % (Auto) % Baso % (Auto) % Neut # (Auto) (1.40-6.50) K/uL Lymph # (Auto) (1.20-3.40) K/uL [place] # (Auto) (0.11-0.59) K/uL Eos # (Auto) (0.00-0.50) K/uL Baso # (Auto) (0.00-0.20) K/uL Immature Gran # (Auto) (0.01-0.20) K/uL Sodium (136-145) mmol/L Potassium (3.5-5.1) mmol/L Chloride (98-107) mmol/L Carbon Dioxide (21-32) mmol/L Anion Gap (3-11) BUN (6-23) mg/dl Creatinine (0.6-1.4) mg/dl Est Cr Clr Drug Dosing ml/min eGFR BUN/Creatinine Ratio (10-20) Glucose (70-99(Fasting)) mg/dl POC Glucose 94 (70-99) mg/dl Calcium (8.6-10.3) mg/dl
--- NOTE | 2025-02-02 10:40 | Discharge Summary ---
Discharge Summary Date of Service February 02, 2025 Principal Dx & Hospital Course #1 = Principal Diagnosis (1) Left flank pain: Present on admission. Now resolved. He only has pain with palpation. Pain control measures (2) Splenic laceration: Occurred January 18 when he suffered a mechanical fall. He has a grade [address] scan reveals no significant changes although the spleen has increased somewhat in size. General surgery consultation noted. No indication for splenectomy at this time. Hemoglobin is stable (3) Diabetes mellitus, type 2: ADA diet. Basal insulin started on admission has been discontinued. Sliding scale coverage if needed (4) GERD (gastroesophageal reflux disease): Stable. Continue PPI therapy (5) Hyperlipidemia: Stable. Continue current medical management (6) Depression: Stable. Continue current medical management Plan Home today, February 02. He will use oxycodone 5 mg every 6 hours as needed for any recurrent pain. He was instructed to follow-up with his PCP as soon as possible. Admission HPI Per Admitting Provider Lenard Hodge is a 54-year-old male with history of hypertension, diabetes, hyperlipidemia, sleep apnea presenting with left sided flank pain. On 01/18/2025 patient fell against a banister and impacted his left side. He had progressive abdominal pain and came to [facility] 01/21/2025 where he was found to have a grade 3 splenic laceration with moderate hemoperitoneum and subcapsular hematoma. He was assessed by [facility] trauma team as well as general surgery and remained at [facility] for monitoring and conservative treatment. Patient did well and was ultimately discharged home on 01/24/2025. He reports he was taking care of himself, no lifting or straining and was getting ample rest at home. This evening he was eating dinner. He dropped his nap can and without thinking of it reached down to pick it up. He felt a "pop" on his left backside then developed acute severe pain with spasm which prompted him to come to the hospital. At present patient complaining of pain in his left side which is worse with movement. He has some shortness of breath as well as feeling of spasm otherwise denies chest pain, dizziness, nausea, vomiting or left upper quadrant abdominal. In the ER he is afebrile, hemodynamically stable ER course: IV Dilaudid Discharge Exam General-alert and oriented x3, no fever, no chills HEENT-head atraumatic and normocephalic, pupils equal and reactive to light, extraocular muscles intact Neck-no lymphadenopathy or thyromegaly, trachea midline Chest-clear to auscultation. No rales, wheezing or rhonchi Cardiac-regular rate and rhythm, normal S1 and S2 Abdomen-normal bowel sounds, no hepatosplenomegaly. Tender to palpation in the left upper quadrant area Extremities-no cyanosis, clubbing, or edema Neuro-cranial nerves II through XII intact, motor and sensory function within normal limits, strength symmetrical, no focal deficits Psych-normal affect, normal mood Discharge Plan Discharge Items Patient Disposition: Home - Self-Care Reason For Visit: SPLENIC LACERATION Discharge Diagnosis: Increased left upper quadrant abdominal pain, grade 3 spleen laceration suffered on January 18 secondary to trauma Activity: As commented below Activity Comment: Avoid any exertion or lifting Non-emergency contact: Primary Care Provider Call non-emergency contact if: your symptoms worsen Follow-up/Referrals: Deandre Butts CRNP [Primary Care Provider] - Diet: Carb Consistent or DM2 Addtl Attending Provider Instructions: Take oxycodone as needed for abdominal pain. Follow-up with primary care provider within 1 week Pending Studies at Discharge: No Stand-Alone Forms: My [facility] [place] EXTENDED STAYS, Smoking Cessation Medications and DC Order Prescriptions: New oxycodone 5 mg tablet 5 mg PO Q6H PRN (Reason: pain) Qty: 20 0RF Continued baclofen 10 mg tablet 10 mg PO BID Qty: 60 2RF nystatin-triamcinolone 100,000-0.1 unit/g-% cream 1 applic TOPICAL BID PRN (Reason: Skin Irritation) Qty: 15 2RF duloxetine 60 mg capsule,delayed release(DR/EC) 60 mg PO QAM Qty: 90 3RF Jardiance 25 mg tablet 25 mg PO QPM Qty: 90 3RF lansoprazole 30 mg capsule,delayed release(DR/EC) 30 mg PO QAM Qty: 90 3RF duloxetine 30 mg capsule,delayed release(DR/EC) 30 mg PO QAM Qty: 90 3RF rosuvastatin 20 mg tablet 20 mg PO HS Qty: 90 2RF Ozempic 2 mg/dose (8 mg/3 mL) pen injector 2 mg subcut Q7D Qty: 3 5RF atenolol 100 mg tablet 100 mg PO QAM Qty: 90 1RF losartan-hydrochlorothiazide 50-12.5 mg tablet 1 tab PO QAM Qty: 90 1RF amlodipine 5 mg tablet 10 mg PO HS Qty: 90 3RF furosemide 80 mg tablet 80 mg PO QAM PRN (Reason: Edema) Qty: 90 0RF (DME) FreeStyle Renetta 3 Plus Sensor Device See Rx Instructions .ROUTE .MEDSUPPLY Qty: 2 11RF Rx Instructions: change sensor every 15 days potassium chloride [Klor-Con M20] 20 mEq tablet,ER particles/crystals 20 meq PO BID Qty: 180 1RF pregabalin 225 mg capsule 225 mg PO BID Qty: 60 3RF bupropion HCl [Wellbutrin XL] 300 mg tablet extended release 24 hr 300 mg PO QAM Qty: 90 1RF varenicline tartrate [Chantix Continuing Month Box] 1 mg tablet 1 mg PO BID Qty: 56 0RF (DME) OneTouch Verio test strips Strip See Rx Instructions .Route Rx Instructions: Test blood sugar once daily PRN- Has Renetta (DME) pen needle, diabetic [BD Ultra-Fine Short Pen Needle] 31 gauge x 5/16" needle See Rx Instructions .ROUTE .MEDSUPPLY Rx Instructions: Inject insulin PRN (DME) CPAP Supplies Misc See Rx Instructions .Route Qty: 1 0RF Rx Instructions: Need for all CPAP supplies-tubing, mask, filters, etc valacyclovir 1 gram tablet 1,000 mg PO TID PRN (Reason: Unknown) cyanocobalamin (vitamin B-12) 1,000 mcg/mL solution 1,000 mcg IM ONCE Qty: 1 0RF hydroxyzine HCl 25 mg tablet 25 mg PO QID PRN (Reason: Anxiety ) Qty: 90 2RF Discharge Orders: Discharge Order (Routine); Ordered 02/02/25 Ordered By: Tariq Suazo Admission Data Admit Date/Time: 02/01/25 00:29 Attending Provider: Tariq Suazo Admit Provider: Dotty No Primary Care Provider: Deandre Butts Other Providers: Dotty No; [facility] Hospital Stay Data Consultations 02/01/25 00:01 ED Decision to Admit Stat 02/01/25 02:11 Consult General Surgery Routine Diagnostic Imagining Performed 01/31/25 21:53 CT abd pelvis IV con only Stat Pending Results Patient Have Any Pending Studies at Discharge: No Discharge Instructions Given to Patient (Per Discharging Provider) Take oxycodone as needed for abdominal pain. Follow-up with primary care provider within 1 week Total Time Total Time Spent Total Time Spent (In Minutes): 45 minutes Coding Level of Care Code 31898 INP/OBS DISCH >30 MIN Diagnoses Left flank pain R10.9 Splenic laceration S36.039A Diabetes mellitus, type 2 E11.9 GERD (gastroesophageal reflux disease) K21.9 Mixed hyperlipidemia E78.2 Hyperlipidemia type: mixed hyperlipidemia Depression F32.9
[2025-02-02 11:18] VITALS: PULSE 72
[2025-02-02] MEDS: POTASSIUM CHLORIDE CRTAB 20 MEQ TABCR PO STA (11:25)
[2025-02-02 13:10] LABS: Hematocrit (blood only) 31.1 % (42.0-52.0); Hemoglobin 10.4 g/dl (14.0-18.0)
== END 2025-02-02 14:06 | disposition home or self-care (01) ==
LOC: ED 21:43 → INTOOBSV 02-01 00:29 → SUATTDRO 02-01 00:29 → 2E 02-01 00:29